=== PATIENT | male | born 1940 | race Caucasian/White ===

== ENCOUNTER 2016-09-18 22:14 | Inpatient (IN) | payer OTHER, MEDICAID ==
[2016-09-18] MEDS ORDERED: PROPOFOL/EMULSION 500 MG/50 ML BOTTLE IV ONE (22:23)
[2016-09-18] MEDS: DOBUTamine/DEXTROSE 250 ML IV SCH (22:30)
[2016-09-18] MEDS ORDERED: ROCURONIUM 100 MG/10 ML VIAL IVP ONE (22:30)
[2016-09-18] MEDS ORDERED: ONDANSETRON 4 MG/2 ML VIAL ONE (22:30)
[2016-09-18] MEDS ORDERED: ETOMIDATE 20 MG/10 ML VIAL IVP ONE (22:30)
--- NOTE | 2016-09-18 22:32 | CPEKG ---
Heart Rate: 147 RR Interval: 408 P-R Interval: 132 QRSD Interval: 64 QT Interval: 284 QTC Interval: 445 P [place]: 74 QRS [place]: 85 T Wave [place]: 73 EKG Severity - ABNORMAL ECG - EKG Impression: SINUS TACHYCARDIA WITH IRREGULAR RATE 122-185 EKG Impression: ABERRANT COMPLEX, POSSIBLY SUPRAVENTRICULAR EKG Impression: PROBABLE LEFT ATRIAL ABNORMALITY EKG Impression: BORDERLINE RIGHT AXIS DEVIATION EKG Impression: ST DEPRESSION, PROBABLY RATE RELATED Electronically Signed By: Daniel Stack 18-Sep-2016 23:19:21
[2016-09-18] MEDS ORDERED: EPINEPHrine 1 MG/10 ML SYR IVP ONE (22:35)
[2016-09-18] MEDS ORDERED: MIDAZOLAM 2 MG/2 ML VIAL ONE ×2 (22:37→22:38)
[2016-09-18] MEDS ORDERED: MIDAZOLAM 2 MG/2 ML VIAL IVP ONE (22:40)
[2016-09-18 22:43] LABS: % IMMATURE GRANULYOCYTES 0.2 % (0.0-1.1); ABSOLUTE IMMATURE GRANULOCYTES 0.03 10^3/uL (0.00-0.10); ADD DIFF? NO; ADD MORPH? NO; ADD SCAN? NO; ATYPICAL LYMPHOCYTE FLAG 0 (0-99); FRAGMENT RBC FLAG 0 (0-99); HEMATOCRIT 43.9 % (40.0-51.0); HEMOGLOBIN 15.4 g/dL (13.7-17.5); LEFT SHIFT FLG 80 (0-99); LIPEMIA HEMOLYSIS FLAG 90 (0-99); MEAN CELL HEMOGLOBIN 34.1 pg (27.9-34.1); MEAN CELL HEMOGLOBIN CONCENTR. 35.1 g/dL (32.4-36.7); MEAN CELL VOLUME 97.1 fL (81.5-99.8); MEAN PLATELET VOLUME 9.7 fL (8.7-11.7); PLATELET CLUMPS FLAG 10 (0-99); PLATELET COUNT 273 10^3/uL (150-400); RED BLOOD CELL COUNT 4.52 10^6/uL (4.40-6.38); RED CELL DISTRIBUTION WIDTH 12.1 % (11.5-15.2)
[2016-09-18 22:52] LABS: APTT 26.9 SEC (23.0-38.0); INR 1.04 (0.83-1.16); PROTIME(PATIENT) 13.5 SEC (12.0-15.0)
[2016-09-18] MEDS ORDERED: NOREPINEPHRINE BITARTRATE 4 MG in NS 500 ML IV ONE (22:53)
[2016-09-18 22:54] LABS: ANION GAP 15 mEq/L (8-16); CALCIUM 8.9 mg/dL (8.5-10.4); CARBON DIOXIDE 23 mEq/l (22-31); CHLORIDE 103 mEq/L (97-110); CREATININE 1.1 mg/dL (0.7-1.3); GLOMERULAR FILTRATION RATE > 60; GLUCOSE 188 mg/dL (70-100); POTASSIUM 4.9 mEq/L (3.5-5.2); SODIUM 141 mEq/L (134-144)
--- NOTE | 2016-09-18 22:56 | DX ---
Portable AP chest. September 18, 2016At 2240 History: Respiratory distress. Intubation. Comparison Study: June 29, 2016. Findings: Interstitial infiltrate present throughout the central and lower aspects of left lung is un changed. Similar but less prominent findings are present in the right lower lobe, stable. Heart size is normal. Endotracheal tube extends to the top of the aortic arch overlying the tracheal air shadow. Impression: Bilateral pulmonary infiltrates, left greater than right, stable. Intubation.
[2016-09-18 23:02] LABS: BASE EXCESS -6.2 mEq/L (-2.5-2.5); BICARBONATE 19 mEq/L (22-26); MEASURED OXYGEN SATURATION 86 % (92-95); PCO2 39 mmHg (34-38); PO2 59 mmHg (65-75); TCO2 20 mEq/L (23-27)
[2016-09-18 23:06] LABS: TROPONIN I 0.012 ng/mL (0-0.034)
[2016-09-18] MEDS ORDERED: ACETAMINOPHEN 650 MG SUPP PR ONE (23:10)
[2016-09-18] MEDS ORDERED: ACETAMINOPHEN 325 MG SUPP PR ONE (23:10)
--- NOTE | 2016-09-18 23:11 | CPEKG ---
Heart Rate: 140 RR Interval: 429 P-R Interval: 112 QRSD Interval: 64 QT Interval: 320 QTC Interval: 489 P [place]: 81 QRS [place]: 79 T Wave [place]: 70 EKG Severity - ABNORMAL ECG - EKG Impression: SINUS TACHYCARDIA EKG Impression: PROBABLE ANTEROSEPTAL INFARCT, AGE INDETERM EKG Impression: ST DEPRESSION, PROBABLY RATE RELATED EKG Impression: BORDERLINE PROLONGED QT INTERVAL EKG Impression: ST elevation in AVR and depression in V4 V5 and V6 Electronically Signed By: Daniel Stack 18-Sep-2016 23:19:15
[2016-09-18] MEDS ORDERED: ASPIRIN RECTAL 300 MG SUPP PR ONE (23:12)
--- NOTE | 2016-09-18 23:13 | EDPHY ---
H & P Time Seen by Provider: 09/18/16 22:14 HPI/ROS: CHIEF COMPLAINT: Respiratory distress HISTORY OF PRESENT ILLNESS: The patient is a 76-year-old schizophrenic man with a history of hypertension and coronary artery disease who comes to the emergency department via EMS for respiratory distress. He denies recent coughs or infections. In the ambulance he told him he is also having chest pain. They placed him on a BiPAP and were having trouble keeping his oxygen level above 80% . EKG showed sinus tachycardia. REVIEW OF SYSTEMS: Unable to obtain secondary to patient condition EXAM: GENERAL: Critical appearing, hypoxic, tachypneic Attempting to communicate with BiPAP in place. HEAD: Atraumatic, normocephalic. EYES: Pupils equal round and reactive to light, extraocular movements intact, sclera anicteric, conjunctiva are normal. ENT: TMs normal, nares patent, oropharynx clear without exudates. Moist mucous membranes. NECK: Normal range of motion, supple without lymphadenopathy or JVD. LUNGS: Bilateral rhonchi expiratory, no wheezing HEART: Tachycardic ABDOMEN: Obese, Soft, nontender, normoactive bowel sounds. No guarding, no rebound. No masses appreciated. BACK: No CVA tenderness, no spinal tenderness, step-offs or deformities EXTREMITIES: No edema. Normal range of motion, no pitting or edema. No clubbing or cyanosis. NEUROLOGICAL: Cranial nerves II through XII grossly intact. Normal speech, normal gait. 5/5 strength, normal movement in all extremities, normal sensation PSYCH: Normal mood, normal affect. SKIN: Warm, dry, normal turgor, no visible rashes or lesions. Source: Patient, EMS, skilled nursing records Exam Limitations: Clinical condition - Medical/Surgical History Hx Asthma: No Hx Chronic Respiratory Disease: Yes Hx Diabetes: No Hx Cardiac Disease: Yes Hx Renal Disease: No Hx Cirrhosis: No Hx Alcoholism: No Hx HIV/AIDS: No Hx Splenectomy or Spleen Trauma: No Other PMH: Schizophrenia, Anxiety, Depression, Hypertension, Hypothyroid, Chronic pain, Hypoxemia, Coronary artery disease, pneumonia - Family History Significant Family History: Asthma, Heart disease, Diabetes, Hypertension - Social History Smoking Status: Former smoker Alcohol Use: Sober Drug Use: None Constitutional: Initial Vital Signs Temperature (C) 37.1 C 09/18/16 22:14 Heart Rate 127 H 09/18/16 22:14 Respiratory Rate 50 H 09/18/16 22:14 Blood Pressure 93/71 L 09/18/16 22:14 O2 Sat (%) 81 L 09/18/16 22:14 O2 Delivery Mode Ventilator O2 (L/minute) 15 Allergies/Adverse Reactions: amoxicillin [Amoxicillin] Allergy (Verified 09/19/16 03:01) Penicillins Allergy (Verified 09/19/16 03:01) potassium [Potassium] Allergy (Verified 09/19/16 03:01) Home Medications: Medication Instructions Recorded Benztropine Mesylate 0.5 mg PO BID 01/12/16 Ergocalciferol [Vitamin D2 (*)] 50,000 i.unit PO Q30D 01/12/16 Levothyroxine [Synthroid 88 mcg 88 mcg PO DAILY06 01/12/16 (*)] Magnesium Hydroxide/Al Hydrox 30 ml PO Q4 PRN 01/12/16 [Mylanta Liquid] Polyethylene Glycol 3350 [Miralax 17 gm PO HS 01/12/16 17 gm (*)] Sennosides 2 each PO DAILY 01/12/16 morphINE SR [Ms Contin/Oramorph 15 15 mg PO BID 01/12/16 mg (*)] risperiDONE [Risperdal 1mg (*)] 2 mg PO BID 01/12/16 Benzocaine/Menthol 15/4 [Cepacol 1 ea PO PRN PRN #0 lozenge 01/14/16 Lozenge] Ipratropium/Albuterol [Duoneb (*)] 3 ml IH QID #0 deyvial 01/14/16 Metoprolol Tartrate [Lopressor 25 25 mg PO BID #0 tab 01/14/16 mg (*)] Nitroglycerin [Nitrostat 0.4 mg 0.4 mg SL PRN PRN #0 btl 01/14/16 (*)] guaiFENesin [Robitussin Oral 200 mg PO Q4 PRN #0 udcup 01/14/16 Liquid (*)] Aspirin [Aspirin 81mg (*)] 81 mg PO DAILY 06/29/16 Atorvastatin Calcium [Lipitor 20 20 mg PO HS 06/29/16 mg (*)] Bisacodyl [Dulcolax] 10 mg RC DAILY PRN 06/29/16 Cholecalciferol Vit D3 [Vitamin D3 2,000 units PO DAILY 06/29/16 2000 units tab (OTC)] Clopidogrel Bisulfate [Plavix (*)] 75 mg PO DAILY 06/29/16 Losartan Potassium [Cozaar 25 mg 25 mg PO DAILY 06/29/16 (*)] Magnesium Hydroxide [Milk of 30 ml PO DAILY PRN 06/29/16 Magnesia (*)] Ranitidine HCl 150 mg PO BID 06/29/16 Trolamine Salicylate/Aloe Vera 1 telly TP Q6 PRN 06/29/16 [Aspercreme 10% Cream] Acetaminophen [Tylenol 325mg (*)] 650 mg PO BID #0 tab 06/30/16 Hydrocodone/Acetaminophen [[place] 1 each PO Q6 PRN #0 tablet 06/30/16 5/325 (*)] Ibuprofen [Motrin (*)] 400 mg PO Q6HRS PRN #0 tab 06/30/16 Medical Decision Making - Diagnostics EKG Interpretation: An EKG obtained and was read and documented in trace view. Please see trace view for full reading and report. sinus tachycardia with PACs A EKG obtained and was read and documented in trace view. Please see trace view for full reading and report. Sinus tachycardia with some ST elevation in AVR and reciprocal depressions A repeat EKG obtained and was read and documented in trace view. Please see trace view for full reading and report. Imaging: X-ray: chest x-ray was obtained. I viewed the images myself on the PACS system. My interpretation of the images is: Pulmonary edema, ET tube in place. The radiologist interpretation is pending. X-ray: chest x-ray was obtained. I viewed the images myself on the PACS system. My interpretation of the images is: Pulmonary edema, ET tube and central line in place. The radiologist interpretation is pending. Procedures: Intubation: emergent intubation. While manually bagging the patient and maintaining the airway, The patient was sedated with 20 mg of Etomidate and paralyzed with 100 mg dark urine M. A 7.5 endotracheal tube was placed using the Glidescope. It was placed at 26 at the gum line. Placement was confirmed by direct visualization, good color change, and bilateral breath sounds with absent gastric sounds. Chest x-ray is pending. Saturations improved significantly and the procedure was successful. Procedure: Central line placement. Indication: Cardiogenic shock. Emergency consent. Patient is full code. A timeout was observed and patients identity and correct procedure location confirmed. Full maximal sterile barrier technique was uses including cap, gown, sterile gloves, large sheet, hand washing and chlorhexidine prep. The area anesthetized with 1% lidocaine. The left subclavian was punctured with a 19 gauge finder needle, then a triple- lumen was placed using standard Seldinger technique. There were no complications. Blood return low pressure, dark blood. Patient tolerated procedure well. CXR results: Line in good place. X-ray was interpreted by myself. The procedure was performed by myself. ED defibrillation: The patient was defibrillated for unstable SVT with 200 joules synchronized cardioversion. He was successfully converted to sinus tachycardia. Procedure: Arterial line placement Indication: Hypotension with pressors. Emergency consent. A timeout was observed and patients identity and correct procedure location confirmed. sterile barrier technique was uses including sterile gloves, large sheet, hand washing and chlorhexidine prep. The right femoral artery was punctured with a 19 gauge finder needle, then a arterial line was placed using standard [place]eldinger technique. There were no complications. Blood return low pressure, bright red blood. Patient tolerated procedure well. The procedure was performed by myself. ED Course/Re-evaluation: The patient was immediately taken into the trauma room and preparation for intubation. We tried to pre oxygenate maximally with BiPAP and nasal cannula. We got him up to 86%. We then intubated . Lung exam and x-ray were consistent with pulmonary edema. I suspect acute cardiogenic failure. He was 140/80 on arrival. But quickly lost blood pressure. After intubation he was 80 /60 and at one point 40/30. He had an episode of SVT and was defibrillated successfully. He was given dobutamine and several doses of epinephrine. CPR was not required. He maintained pulses. I spoke with Dr. Thomas over the phone and reviewed the 1st EKG. It revealed sinus tachycardia but no ST interval abnormalities. The 2nd EKG however revealed ST elevation in AVR and reciprocal changes in inferior leads. I reviewed this again with Dr. Thomas and he called the stores laborer team while I was placing the central line. Patient is currently 85 /72 on dobutamine and Levophed drips at maximum dose with a heart rate of 155 saturating 98% on room air with a a controlled rate of 20. 11:[address] Thomas is evaluating the patient. He thinks that he may have a primary arrhythmia because he continues to go in and out of SVT. He is given amiodarone bolus. The stores laborer had not been called get but was currently being paged when we decided to hold it until patient had emergent echocardiogram which is currently being done. 11:45 p.m. on echocardiogram the patient has good wall motion. laborer shellfish processing has been canceled. Will admit to the medical service. The patient is severely septic. Fluid boluses been initiated. I will order antibiotics. We have discussed the case with Dr. Gris Mendez who will admit. the patient is allergic to penicillins but not carbapenems. 11:55 p.m. I discussed the case with Dr. Thomas and Dr. Mendez. We agreed to initiate heparin to treat for potential PE but to defer CT scanning until tomorrow because he is currently in stable. We will give him the full fluid bolus for sepsis. The patient is doing much better. Heart rate 130, blood pressure 90/60. The dobutamine is often he is on Levophed of 5. Oxygen saturation in the mid 90s. 2:20 a.m. just prior to going upstairs the patient's blood pressure and saturations dropped again. We obtained another chest x-ray which reveals worsening infiltrates and ET tube still in place. No pneumothorax. We increased his Levophed and will start vasopressin. I placed a arterial line the confirms a blood pressure. It is improving slightly and is now 90/60. Critical Care Time: I spent a total of 75 minutes of critical care time in obtaining history, performing a physical exam, bedside monitoring of interventions, collecting and interpreting tests and discussion with consultants but not including time spent performing procedures [and exclusive of the PA's time]. - Data Points Laboratory Results: Laboratory Results 09/18/16 22:25 09/18/16 22:25 09/18/16 09/18/16 09/18/16 22:57 22:25 22:23 WBC 15.68 H 10^3/uL (3.80-9.50) RBC 4.52 10^6/uL (4.40-6.38) Hgb 15.4 g/dL (13.7-17.5) POC Hgb 16.0 gm/dL (14.5-17.3) Hct 43.9 % (40.0-51.0) POC Hct 47 % (42.8-50.6) MCV 97.1 fL (81.5-99.8) MCH 34.1 pg (27.9-34.1) MCHC 35.1 g/dL (32.4-36.7) RDW 12.1 % (11.5-15.2) Plt Count 273 10^3/uL (150-400) MPV 9.7 fL (8.7-11.7) Neut % (Auto) 91.8 H % (39.3-74.2) Lymph % (Auto) 6.5 L % (15.0-45.0) [place] % (Auto) 1.3 L % (4.5-13.0) Eos % (Auto) 0.1 L % (0.6-7.6) Baso % (Auto) 0.1 L % (0.3-1.7) Nucleat RBC Rel Count 0.0 % (0.0-0.2) Absolute Neuts (auto) 14.38 H 10^3/uL (1.70-6.50) Absolute Lymphs (auto) 1.02 10^3/uL (1.00-3.00) Absolute Monos (auto) 0.21 L 10^3/uL (0.30-0.80) Absolute Eos (auto) 0.02 L 10^3/uL (0.03-0.40) Absolute Basos (auto) 0.02 10^3/uL (0.02-0.10) Absolute Nucleated RBC 0.00 10^3/uL (0-0.01) Immature Gran % 0.2 % (0.0-1.1) Immature Gran # 0.03 10^3/uL (0.00-0.10) PT 13.5 SEC (12.0-15.0) INR 1.04 (0.83-1.16) APTT 26.9 SEC (23.0-38.0) D-Dimer 2.76 H ug/mLFEU (0.00-0.50) Puncture Site RIGHT BRACHIAL Patient Temperature 37.0 DEGREES pCO2 39 H mmHg (34-38) pO2 59 L mmHg (65-75) Total CO2 20 L mEq/L (23-27) ABG pH 7.31 L (7.35-7.45) ABG O2 Saturation 86 L % (92-95) ABG Base Excess -6.2 L mEq/L (-2.5-2.5) VBG Lactic Acid 3.3 H mmol/L (0.7-2.1) POC Sodium 141 mEq/L (134-144) Sodium 141 mEq/L (134-144) POC Potassium 4.6 mEq/L (3.3-5.0) Potassium 4.9 mEq/L (3.5-5.2) POC Chloride 102 mEq/L (96-108) Chloride 103 mEq/L (97-110) Carbon Dioxide 23 mEq/l (22-31) Bicarbonate 19 L mEq/L (22-26) Anion Gap 15 mEq/L (8-16) POC BUN 19 mg/dL (7-23) BUN 16 mg/dL (7-23) Creatinine 1.1 mg/dL (0.7-1.3) POC Creatinine 1.0 mg/dL (0.8-1.5) Estimated GFR > 60 Glucose 188 H mg/dL (70-100) POC Glucose 196 H mg/dL (70-100) Calcium 8.9 mg/dL (8.5-10.4) Total Bilirubin 0.9 mg/dL (0.1-1.4) Conjugated Bilirubin 0.8 H mg/dL (0.0-0.5) Unconjugated Bilirubin 0.1 mg/dL (0.0-1.1) AST 37 IU/L (17-59) ALT 44 IU/L (21-72) Alkaline Phosphatase 66 IU/L (38-126) Troponin I 0.012 ng/mL (0-0.034) NT-Pro-B Natriuret Pep 590 H pg/mL (0-450) Total Protein 7.5 g/dL (6.3-8.2) Albumin 4.2 g/dL (3.5-5.0) Lipase 125.0 IU/L (23-300) Medications Given: Discontinued Medications Acetaminophen (Tylenol Rectal) 325 mg TX EDNOW ONE Stop: 09/19/16 00:01 Last Admin: 09/19/16 00:00 Dose: 325 mg Acetaminophen (Tylenol Rectal) 650 mg TX EDNOW ONE Stop: 09/19/16 00:01 Last Admin: 09/19/16 00:00 Dose: 650 mg Amiodarone HCl (Amiodarone Hcl) 150 mg IV ONCE ONE Stop: 09/18/16 23:31 Last Admin: 09/18/16 23:30 Dose: 150 mg Amiodarone HCl (Amiodarone Hcl) 150 mg IV ONCE ONE Stop: 09/18/16 23:46 Last Admin: 09/18/16 23:50 Dose: 150 mg Aspirin (Aspirin Rectal) 300 mg TX EDNOW ONE Stop: 09/19/16 00:01 Last Admin: 09/19/16 00:00 Dose: 300 mg Epinephrine HCl (Epinephrine) 1 mg IVP ONCE ONE Stop: 09/18/16 22:36 Last Admin: 09/18/16 22:35 Dose: 1 mg Etomidate (Etomidate) 20 mg IVP EDNOW ONE Stop: 09/18/16 22:31 Last Admin: 09/18/16 22:30 Dose: 20 mg Heparin Sodium (Porcine) (Heparin Injection) 0 unit IVP EDNOW ONE PRN Reason: Protocol Stop: 09/18/16 23:54 Last Admin: 09/19/16 01:02 Dose: 5,800 units Norepinephrine 4 mg/ Sodium (Chloride) 504 mls @ 0 mls/hr IV EDNOW ONE; Titrate PRN Reason: Protocol Stop: 09/18/16 22:54 Last Admin: 09/18/16 23:00 Dose: 504 mls Fentanyl/Sodium Chloride (Fentanyl 10 Mcg/Ml (Premix)) 100 mls @ 0 mls/hr IV ONCE ONE; Per Protocol PRN Reason: Protocol Stop: 09/18/16 23:31 Last Admin: 09/18/16 23:30 Dose: 100 mls Amiodarone HCl (Amiodarone Hcl) 200 mls @ 33.333 mls/hr IV ONCE ONE PRN Reason: Protocol Stop: 09/19/16 05:29 Last Admin: 09/19/16 01:04 Dose: Not Given Cefepime HCl 2 gm/ Dextrose 100 mls @ 200 mls/hr IV EDNOW ONE PRN Reason: Protocol Stop: 09/19/16 00:13 Last Admin: 09/19/16 02:33 Dose: 100 mls Vancomycin/Sodium Chloride (Vancomycin 1 Gm (Premix)) 250 mls @ 250 mls/hr IV EDNOW ONE PRN Reason: Protocol Stop: 09/19/16 00:51 Last Admin: 09/19/16 01:12 Dose: 250 mls Heparin Sodium (Porcine) (Heparin 50 Units/Ml (Premix)) 500 mls @ 0 mls/hr IV EDNOW ONE; Per Protocol PRN Reason: Protocol Stop: 09/18/16 23:54 Last Admin: 09/19/16 01:03 Dose: 500 mls Amiodarone HCl (Amiodarone Hcl) 100 mls @ 600 mls/hr IV ONCE ONE Stop: 09/18/16 23:39 Last Admin: 09/19/16 03:54 Dose: Not Given Midazolam HCl (Versed) 8 mg IVP EDNOW ONE Stop: 09/18/16 22:41 Last Admin: 09/18/16 22:40 Dose: 8 mg Midazolam HCl (Versed) 2 mg IVP ONCE ONE Stop: 09/19/16 01:55 Last Admin: 09/19/16 01:55 Dose: 2 mg Rocuronium [place] (Zemuron) 100 mg IVP EDNOW ONE Stop: 09/18/16 22:31 Last Admin: 09/18/16 22:30 Dose: 100 mg Sodium Chloride (Ns *For Sepsis Order Set Only*) 0 ml IV ONCE ONE Stop: 09/18/16 23:45 Last Admin: 09/19/16 00:30 Dose: 3,000 ml Point of Care Test Results: 09/18/16 22:23 POC Sodium 141 POC Potassium 4.6 POC Chloride 102 POC BUN 19 POC Creatinine 1.0 POC Glucose 196 H Departure - Departure Disposition: Home, Routine, Self-Care Clinical Impression: Cardiogenic shock Condition: Critical
[2016-09-18] MEDS ORDERED: fentaNYL/NACL 100 ML IV ONE (23:30)
[2016-09-18] MEDS ORDERED: AMIODARONE TACHY-6HR INFSN (ORDER 2/3) IV ONE (23:30)
[2016-09-18] MEDS ORDERED: AMIODARONE HCL 100 ML IV ONE ×3 (23:30→23:45)
[2016-09-18] MEDS ORDERED: AMIODARONE HCL 150 MG/3 ML VIAL IV ONE ×2 (23:30→23:45)
[2016-09-18 23:31] LABS: COLOR YELLOW; LEUKOCYTE ESTERASE,URINE NEGATIVE (NEGATIVE); NITRITE,URINE NEGATIVE (NEGATIVE)
--- NOTE | 2016-09-18 23:31 | DX ---
Portable AP chest. September 18, 2016at 2307 History: Intubation. Respiratory distress. Line placement. Findings: From prior study, there is been placement of a left subclavian central venous catheter and nasogastric tube, without pneumothorax. Infiltrates in the lower lobes appear unchanged. Endotracheal tube is stable. Impression: Left subclavian central venous catheter without pneumothorax.
[2016-09-18 23:33] LABS: BACTERIA TRACE /hpf (NONE SEEN); MUCUS TRACE /lpf (NONE-1+)
--- NOTE | 2016-09-18 23:35 | CPEKG ---
Heart Rate: 135 RR Interval: 444 P-R Interval: 148 QRSD Interval: 68 QT Interval: 288 QTC Interval: 432 P [place]: 108 QRS [place]: 78 T Wave [place]: 20 EKG Severity - BORDERLINE ECG - EKG Impression: SINUS TACHYCARDIA EKG Impression: BORDERLINE T WAVE ABNORMALITIES Electronically Signed By: Daniel Stack 18-Sep-2016 23:58:36
[2016-09-18] MEDS ORDERED: NS 1,000 ML BAG *FOR SEPSIS ORDER SET ONLY IV ONE (23:44)
[2016-09-18] MEDS ORDERED: CEFEPIME HCL 2 GM in D5W 100 ML IV ONE (23:44)
[2016-09-18] MEDS ORDERED: VANCOMYCIN HCL/NORMAL SALINE 250 ML IV ONE (23:52)
[2016-09-18] MEDS ORDERED: HEPARIN/DEXTROSE 500 ML IV ONE (23:53)
[2016-09-18] MEDS ORDERED: HEPARIN 10,000 UNIT/10 ML MDV IVP ONE (23:53)
[2016-09-19] MEDS ORDERED: ACETAMINOPHEN 325 MG SUPP PR ONE
[2016-09-19] MEDS ORDERED: ASPIRIN RECTAL 300 MG SUPP PR ONE
[2016-09-19] MEDS ORDERED: ACETAMINOPHEN 650 MG SUPP PR ONE
[2016-09-19 00:04] LABS: ALBUMIN 4.2 g/dL (3.5-5.0); BILIRUBIN,TOTAL 0.9 mg/dL (0.1-1.4); BILIRUBIN-CONJUGATED 0.8 mg/dL (0.0-0.5); BILIRUBIN-UNCONJUGATED 0.1 mg/dL (0.0-1.1); TOTAL PROTEIN 7.5 g/dL (6.3-8.2)
[2016-09-19] MEDS ORDERED: ETOMIDATE 40 MG/20 ML INJ ONE (00:07)
[2016-09-19] MEDS ORDERED: ROCURONIUM 100 MG/10 ML VIAL ONE (00:07)
--- NOTE | 2016-09-19 00:31 | PDCARCONS ---
Cardiology Consult Reason for Consult: Emergency consultation requested by ER physician Dr. Daniel Stack Chief Complaint: Respiratory distress requiring urgent intubation Requesting Physician: Dr. Daniel Stack History of Present Illness: I was asked to perform a stat consult by Dr. Daniel Stack for this 76-year- old male who arrived to the emergency room in acute respiratory distress. Upon arrival he was hypertensive, was urgently intubated and subsequently became hypotensive. Per Dr. Stack report to me, patient had been transferred from [place] with symptoms of shortness of breath. There was a brief history taken prior to intubation and patient reported a history of pneumonia. Following intubation patient was hypotensive and required dobutamine and Lopressor. Subsequently the patient had supraventricular tachycardia in the 170s that required cardioversion because of hypotension, per Dr. Stack report , heart rate decreased to 150 beats per minute post cardioversion. Upon my arrival in the ED, the patient was on 20 mics per kg per minute of dobutamine, 20 mics per kg per minute of Levophed. History as above was obtained from Dr. Stack and the RN. I was told there was no chest pain prior to intubation, the patient's main complaint was shortness of breath. History Information - Allergies/Home Medication List Allergies/Adverse Reactions: amoxicillin [Amoxicillin] Allergy (Verified 04/21/12 14:14) Penicillins Allergy (Verified 04/21/12 14:14) potassium [Potassium] Allergy (Verified 04/21/12 14:14) Home Medications: Benztropine Mesylate 0.5 mg PO BID 01/12/16 [Last Taken 06/29/16] Ergocalciferol [Vitamin D2 (*)] 50,000 i.unit PO Q30D 01/12/16 [Last Taken 06/14] Levothyroxine [Synthroid 88 mcg (*)] 88 mcg PO DAILY06 01/12/16 [Last Taken 01/07] Magnesium Hydroxide/Al Hydrox [Mylanta Liquid] 30 ml PO Q4 PRN 01/12/16 [Last Taken 01/12/16 08:53] Polyethylene Glycol 3350 [Miralax 17 gm (*)] 17 gm PO HS 01/12/16 [Last Taken ] Sennosides 2 each PO DAILY 05/20/16 [Last Taken 06/29/16] morphINE SR [Ms Contin/Oramorph 15 mg (*)] 15 mg PO BID 01/12/16 [Last Taken 01/07] risperiDONE [Risperdal 1mg (*)] 2 mg PO BID 01/12/16 [Last Taken 06/29/16] Aspirin [Aspirin 81mg (*)] 81 mg PO DAILY 06/29/16 [Last Taken 06/29/16] Atorvastatin Calcium [Lipitor 20 mg (*)] 20 mg PO HS 06/29/16 [Last Taken ] Bisacodyl [Dulcolax] 10 mg RC DAILY PRN 06/29/16 [Last Taken Unknown] Cholecalciferol Vit D3 [Vitamin D3 2000 units tab (OTC)] 2,000 units PO DAILY [Last Taken 06/29/16] Clopidogrel Bisulfate [Plavix (*)] 75 mg PO DAILY 06/29/16 [Last Taken 06/29/16] Losartan Potassium [Cozaar 25 mg (*)] 25 mg PO DAILY 06/29/16 [Last Taken ] Magnesium Hydroxide [Milk of Magnesia (*)] 30 ml PO DAILY PRN 06/29/16 [Last Taken Unknown] Ranitidine HCl 150 mg PO BID 06/29/16 [Last Taken 06/29/16] Trolamine Salicylate/Aloe Vera [Aspercreme 10% Cream] 1 telly TP Q6 PRN 06/29/16 [ Last Taken Unknown] - Social History Smoking Status: Former smoker Alcohol Use: Sober Drug Use: None Cardiac History - Cardiac History Past Cardiac History: PCI Physical Exam FIO2 (%) 100 Cardiovascular: regular rate and rhythym, no murmur, rub, or gallop Gastrointestinal: normoactive bowel sounds, soft, non-tender abdomen (Patient intubated, sedated) Lab and Imaging 09/18/16 22:25 09/18/16 22:25 WBC 15.68 10^3/uL (3.80-9.50) H 09/18/16 22:25 RBC 4.52 10^6/uL (4.40-6.38) 09/18/16 22:25 Hgb 15.4 g/dL (13.7-17.5) 09/18/16 22:25 POC Hgb 16.0 gm/dL (14.5-17.3) 09/18/16 22: Hct 43.9 % (40.0-51.0) 09/18/16: POC Hct 47 % (42.8-50.6) 09/18/16 22: MCV 97.1 fL (81.5-99.8) 09/18/16: MCH 34.1 pg (27.9-34.1) 09/18/16: MCHC 35.1 g/dL (32.4-36.7) 09/18/16: RDW 12.1 % (11.5-15.2) 09/18/16: Plt Count 273 10^3/uL (150-400) 09/18/16: MPV 9.7 fL (8.7-11.7) 09/18/16: Neut % (Auto) 91.8 % (39.3-74.2) H 09/18/16: Lymph % (Auto) 6.5 % (15.0-45.0) L 09/18/16: Coles % (Auto) 1.3 % (4.5-13.0) L 09/18/16: Eos % (Auto) 0.1 % (0.6-7.6) L 09/18/16: Baso % (Auto) 0.1 % (0.3-1.7) L 09/18/16: Nucleat RBC Rel Count 0.0 % (0.0-0.2) 09/18/16: Absolute Neuts (auto) 14.38 10^3/uL (1.70-6.50) H 09/18/16: Absolute Lymphs (auto) 1.02 10^3/uL (1.00-3.00) 09/18/16: Absolute Monos (auto) 0.21 10^3/uL (0.30-0.80) L 09/18/16: Absolute Eos (auto) 0.02 10^3/uL (0.03-0.40) L 09/18/16: Absolute Basos (auto) 0.02 10^3/uL (0.02-0.10) 09/18/16 22:25 Absolute Nucleated RBC 0.00 10^3/uL (0-0.01) 09/18/16 22:25 Immature Gran % 0.2 % (0.0-1.1) 09/18/16 22:25 Immature Gran # 0.03 10^3/uL (0.00-0.10) 09/18/16 22:25 PT 13.5 SEC (12.0-15.0) 09/18/16 22:25 INR 1.04 (0.83-1.16) 09/18/16 22:25 APTT 26.9 SEC (23.0-38.0) 09/18/16 22:25 D-Dimer 2.76 ug/mLFEU (0.00-0.50) H 09/18/16 22:25 Puncture Site RIGHT BRACHIAL 09/18/16 22:57 Patient Temperature 37.0 DEGREES 09/18/16 22:57 pCO2 39 mmHg (34-38) H 09/18/16 22:57 pO2 59 mmHg (65-75) L 09/18/16 22:57 Total CO2 20 mEq/L (23-27) L 09/18/16 22:57 ABG pH 7.31 (7.35-7.45) L 09/18/16 22:57 ABG O2 Saturation 86 % (92-95) L 09/18/16 22:57 ABG Base Excess -6.2 mEq/L (-2.5-2.5) L 09/18/16 22:57 VBG Lactic Acid 3.6 mmol/L (0.7-2.1) H 09/18/16 23:48 POC Sodium 141 mEq/L (134-144) 09/18/16 22:23 Sodium 141 mEq/L (134-144) 09/18/16 22:25 POC Potassium 4.6 mEq/L (3.3-5.0) 09/18/16 22:23 Potassium 4.9 mEq/L (3.5-5.2) 09/18/16 22:25 POC Chloride 102 mEq/L (96-108) 09/18/16 22:23 Chloride 103 mEq/L (97-110) 09/18/16 22:25 Carbon Dioxide 23 mEq/l (22-31) 09/18/16 22:25 Bicarbonate 19 mEq/L (22-26) L 09/18/16 22:57 Anion Gap 15 mEq/L (8-16) 09/18/16 22:25 POC BUN 19 mg/dL (7-23) 09/18/16 22:23 BUN 16 mg/dL (7-23) 09/18/16 22:25 Creatinine 1.1 mg/dL (0.7-1.3) 09/18/16 22:25 POC Creatinine 1.0 mg/dL (0.8-1.5) 09/18/16 22:23 Estimated GFR > 60 09/18/16 22:25 Glucose 188 mg/dL (70-100) H 09/18/16 22:25 POC Glucose 196 mg/dL (70-100) H 09/18/16 22:23 Calcium 8.9 mg/dL (8.5-10.4) 09/18/16 22:25 Total Bilirubin 0.9 mg/dL (0.1-1.4) 09/18/16 22:25 Conjugated Bilirubin 0.8 mg/dL (0.0-0.5) H 09/18/16 22:25 Unconjugated Bilirubin 0.1 mg/dL (0.0-1.1) 09/18/16 22:25 AST 37 IU/L (17-59) 09/18/16 22:25 ALT 44 IU/L (21-72) 09/18/16 22:25 Alkaline Phosphatase 66 IU/L (38-126) 09/18/16 22:25 Troponin I 0.012 ng/mL (0-0.034) 09/18/16 22:25 NT-Pro-B Natriuret Pep 590 pg/mL (0-450) H 09/18/16 22:25 Total Protein 7.5 g/dL (6.3-8.2) 09/18/16 22:25 Albumin 4.2 g/dL (3.5-5.0) 09/18/16 22:25 Lipase 125.0 IU/L (23-300) 09/18/16 22:25 Urine Color YELLOW 09/18/16 23:16 Urine Appearance CLEAR 09/18/16 23:16 Urine pH 7.0 (5.0-7.5) 09/18/16 23:16 Ur Specific [place] 1.015 (1.002-1.030) 09/18/16 23:16 Urine Protein NEGATIVE (NEGATIVE) 09/18/16 23:16 Urine Ketones NEGATIVE (NEGATIVE) 09/18/16 23:16 Urine Blood NEGATIVE (NEGATIVE) 09/18/16 23:16 Urine Nitrate NEGATIVE (NEGATIVE) 09/18/16 23:16 Urine Bilirubin NEGATIVE (NEGATIVE) 09/18/16 23:16 Urine Urobilinogen NEGATIVE EU (0.2-1.0) 09/18/16 23:16 Ur Leukocyte Esterase NEGATIVE (NEGATIVE) 09/18/16 23:16 Urine RBC 1-3 /hpf (0-3) 09/18/16 23:16 Urine WBC 1-3 /hpf (0-3) 09/18/16 23:16 Ur Epithelial Cells TRACE /lpf (NONE-1+) 09/18/16 23:16 Urine Bacteria TRACE /hpf (NONE SEEN) H 09/18/16 23:16 Urine Mucus TRACE /lpf (NONE-1+) 09/18/16 23:16 Urine Glucose NEGATIVE (NEGATIVE) 09/18/16 23:16 Visualized and Interpreted Chest x-ray results: Yes Chest X-ray Interpretation: infiltrate Visualized and Interpreted EKG results: Yes EKG additional interpertation: 3 EKGs done, reviewed. These show sinus tachycardia and supraventricular tachycardia with heart rates between 130 to 170 beats per minute, inferolateral ST depression. No ST elevation is seen. Telemetry: Sinus tachycardia with salvos of supraventricular tachycardia causingHypotension A/P Assessment: 1. Acute respiratory distress 2. Fever 3. Hypertension 4. Prior history of coronary artery disease Plan: 76-year-old male with prior history of coronary artery disease, PCI to LAD in 2016, known chronic total occlusion of the right coronary artery. He presented with acute respiratory distress to the emergency department. He is currently intubated. Chest x-ray shows bilateral pulmonary infiltrates. Echocardiogram was done at the time of my examination, this shows hyperdynamic left ventricle, trace pericardial effusion and mildly dilated right ventricle. EKG does not suggest an acute myocardial infarction. D-dimer is elevated. Upon review of previous clinic notes from February of 2016 from [facility], he has chronic hypoxia related to COPD and refuses to use oxygen at home. Differential diagnosis of his symptoms includes pulmonary embolism (D-dimer is elevated), septic shock related to pneumonia or acute coronary syndrome. 1st troponin level is negative, EKG does not suggest acute myocardial infarction, echocardiogram shows no significant wall motion abnormalities. Recommendations are to treat him with intravenous heparin for presumed PE as he is too unstable to currently go to the CT scanner in my opinion. There is no indication for urgent coronary angiography at this time. Core temperature was 39 degrees C and patient is being treated for septic shock with intravenous fluids. He is requiring Levophed 20 mics per kg per minute to maintain his mean arterial pressure in the 60s. This can be titrated downwards as necessary. He had several episodes of supraventricular tachycardia while I was at the bedside. These subsided with discontinuing his dobutamine and giving him IV amiodarone boluses 150 mg x2. I have discussed his case with Dr. Daniel Stack and Dr. Estelita Mendez who will manage him in the ICU. 1.5 hour was spent at the patient's bedside
[2016-09-19] MEDS ORDERED: ONDANSETRON 4 MG/2 ML VIAL IVP PRN (00:50)
[2016-09-19] MEDS ORDERED: ONDANSETRON DISINTEGRATING 4 MG TAB PO PRN (00:50)
[2016-09-19] MEDS ORDERED: HEPARIN 10,000 UNIT/10 ML MDV IVP PRN (00:50)
[2016-09-19] MEDS ORDERED: AMIODARONE HCL 150 MG/3 ML VIAL ONE (01:00)
[2016-09-19] MEDS ORDERED: EPINEPHrine 1 MG/10 ML SYR IVP ONE ×2 (01:00→22:35)
[2016-09-19] MEDS ORDERED: HYDROCORTISONE 100 MG/2 ML VIAL IVP SCH ×2 (01:00→05:30)
[2016-09-19] MEDS ORDERED: PHENYLEPHRINE HCL 50 MG in D5W 250 ML IV SCH (01:00)
[2016-09-19] MEDS ORDERED: NOREPINEPHRINE BITARTRATE 4 MG in D5W 500 ML IV SCH (01:00)
[2016-09-19] MEDS ORDERED: INSULIN REGULAR HUMAN 100 UNIT/ML SC SCH (01:30)
[2016-09-19] MEDS ORDERED: MIDAZOLAM 2 MG/2 ML VIAL ONE ×3 (01:53→11:36)
[2016-09-19] MEDS ORDERED: MIDAZOLAM 2 MG/2 ML VIAL IVP ONE ×2 (01:54→13:30)
--- NOTE | 2016-09-19 02:40 | GHP ---
[f rep st] HISTORY AND PHYSICAL DATE OF ADMISSION: 09/18/2016 CHIEF COMPLAINT: Shortness of breath. HISTORY OF PRESENT ILLNESS: The patient is a 76-year-old male who resides at [facility] who was brought to the emergency department via EMS after he complained of sudden shortness of breath. En route, he reported chest pain in the ambulance. Due to respiratory distress, he was started on BiPAP. Upon arrival to the emergency department, he remained hypoxemic with O2 sats in the 80s, and he was emergently intubated. Clinical exam and chest x-ray were consistent with pulmonary edema and concern arose for an acute coronary syndrome. His initial troponin was negative. His initial EKG showed sinus tachycardia with some ST depression, which may have been rate related. After intubation, he dropped his blood pressure to 80/60 and as low as a systolic pressure in the 40s. Urgent Cardiology consult was obtained and a bedside echo was performed, which showed a normal ejection fraction. No wall motion abnormality, though there was some initial report of possible right ventricular strain. He was started on Levophed followed by dobutamine and then developed an episode of SVT for which he was cardioverted successfully. He then went in and out of SVT and required 2 boluses of IV amiodarone. This was thought to be possibly subsequent dobutamine, which was weaned off, and his SVT seems to have resolved. He is continued on Levophed and also received 3 L of IV saline bolus for possible septic shock. I discussed the case with our on-call print production associate who does not believe he has a cardiogenic source of his symptoms and furthermore, did not believe there was an urgent indication for coronary angiography. I reviewed the EKG with Cardiology who does not feel this is suggestive of an acute ID. His D-dimer is elevated, though he is not clinically stable for CT scanning. Thus, he received a heparin bolus followed by a heparin drip in the emergency department. He is admitted to the ICU for further management. PAST MEDICAL HISTORY: 1. Coronary artery disease with 2 drug-eluting stents in the LAD placed December. 2. Schizophrenia. 3. Bipolar disorder. 4. Depression and anxiety. 5. Hypothyroidism. 6. Hypertension. 7. Chronic pain. 8. Chronic continuous opioid dependence. PAST SURGICAL HISTORY: He has had a prior laparotomy for an ulcer. MEDICATIONS: Please see [facility] for complete updated outpatient medication list. ALLERGIES: Penicillin and potassium. SOCIAL HISTORY: Patient lives at [facility]. He is a former smoker, quit 10 years ago. Per chart review, there is no history of alcohol or drug use. FAMILY HISTORY: Both of his parents are . REVIEW OF SYSTEMS: Unobtainable as the patient is intubated and sedated at the time of my evaluation. OBJECTIVE: VITAL SIGNS: Currently, there are no vital signs charted in [facility]. He reportedly had a core temperature of 39 degree Celsius upon arrival. Blood pressure on arrival was 140/80, though after intubation, he became hypotensive, dropping his systolic pressure to 80 and then as low as 40. His heart rate has ranged from the 120s to 150s. He is saturating 98% on the ventilator. GENERAL: The patient is sedated with just 25 mcg of fentanyl. He is responsive to pain and minimally responsive to verbal stimuli. HEENT: Head is atraumatic, normocephalic. Pupils are pinpoint and reactive bilaterally. Oropharynx is clear. Breathing tube is in place. NECK: Supple. There is no JVD. HEART: Rapid rate without murmur. LUNGS: Relatively clear to auscultation with faint basilar crackles on the posterolateral aspect of the left lung. ABDOMEN: Soft, obese, nondistended, nontender. Normoactive bowel sounds are present. EXTREMITIES: Without cyanosis, clubbing, or edema. Warm, well perfused. NEUROLOGIC: Patient sedated as above. LABORATORY DATA: CBC reveals white blood cell count of 15.7 with 92% neutrophils. D-dimer is elevated at 2.7. INR is 1.04. Initial ABG shows a pH of 7.31, pCO2 of 39, pO2 of 59. Initial lactic acid is 3.6, repeat lactic acid after IV fluids is 3.1. Complete metabolic panel reveals normal electrolytes. Serum bicarb is slightly low at 19. Glucose 188. NT proBNP is 590. Initial troponin is negative. LFTs are normal. Lipase is normal. Urinalysis is unremarkable. RADIOLOGY: Chest x-ray in the emergency department reveals bilateral pulmonary infiltrates, left greater than right. Unclear if this is infectious versus edema. Repeat chest x-ray post intubation and post NG tube placement reveals a stable endotracheal tube with a left subclavian central venous catheter without a pneumothorax. Initial EKG upon arrival to the emergency department reveals sinus tachycardia with a heart rate of 147 and some possible rate-related ST-segment depression. Repeat EKG again reveals sinus tachycardia with a heart rate of [address] depression in the inferior and lateral leads, which is slightly improved on his final EKG performed at 2330. ASSESSMENT AND PLAN: The patient is a 76-year-old male who presented to the emergency department via EMS from his assisted living facility after developing acute shortness of breath with chest pain reported en route. 1. Acute hypoxemic respiratory failure. Patient required emergent intubation in ED. Possible etiologies include septic shock secondary to pneumonia in the setting of bilateral infiltrates versus pulmonary embolism versus cardiogenic pulmonary edema due to acute coronary syndrome. He received 30 cc/kg fluid bolus in the emergency department followed by broad-spectrum antibiotics. He presented febrile with tachycardia, leukocytosis, and elevated lactate of 3.6. His repeat lactate is trending down. Will continue to trend his lactate to less than 2.2. I am going to continue him on cefepime and vancomycin for possible pulmonary source of sepsis. A central line is placed. Will monitor CVP and mixed venous O2 saturation. After discussion with Cardiology, it seems less likely this is an acute coronary syndrome. However, we will trend his troponin. His EKG at this time appears nonischemic. I am concerned for a pulmonary embolism as an underlying etiology of his presentation. His D-dimer is elevated. However, he is currently not stable to go to the CT scanner. Thus , he has received a heparin bolus followed by heparin drip, and will continue this overnight. If his clinical status is improved in the morning, he will need a CT chest angiogram for further evaluation for PE. Will obtain b/l LE us for now. 2. Septic shock. Suspect pulmonary source. Treatment as above. Currently on 2 pressors, will initiate stress dose steroids with Hydrocortisone. Based on his mixed venous O2 of 66, would like to add back Dobutamine, will try low dose and hopefully avoid SVT. 3. Supraventricular tachycardia. This may have been hastened by high dose dobutamine. He is status post 2 IV amiodarone boluses and he also required cardioversion x1. He has since been weaned off dobutamine and his SVT seems to have resolved. Should this recur, will repeat an amiodarone bolus and consider amiodarone drip. Avoid Adenosine given hypotension. 4. Coronary artery disease with history of left anterior descending stent placement in december of 2015. As above, we are less suspicious for an acute coronary syndrome. However, he does need to continue his antiplatelet therapy given his stent has been placed within the past year. An NG tube is in place, and I will continue his aspirin and Plavix through his tube. Cardiology has been consulted, and appreciate their assistance. 5. Metabolic acidosis. This is likely a lactic acidosis in the setting of presumed septic shock and decreased tissue perfusion. pH down to 7.2 from 7.3. He is receiving his 4th L NS. Will add bicarb drip and follow closely. 6. Hypertension. Antihypertensives are held at this time given his dramatic hypotension post intubation. These can be resumed as clinically indicated when his sepsis picture improves. 7. Schizophrenia. We can resume his outpatient medications once his medication reconciliation is performed as long as these are compatible with administration through the NG tube. 8. Chronic pain with chronic continuous opioid dependence. At this time, he is on a fentanyl drip, which should keep him out of withdrawal, and once his medical record is completed, we can continue his outpatient pain medications. 9. Hypothyroidism. Will continue his levothyroxine after completion of his medical record. 10. Hyperglycemia. I do not see that he has a history of diabetes. I will place him on a q.6 hour dose adjusted regular insulin as needed for glycemic control while in the ICU. 11. Deep venous thrombosis prophylaxis. Patient is currently anticoagulated with a heparin drip. 12. Code status. I reviewed his MOLST form. He is full code. 13. Disposition: Patient is admitted to inpatient status, is likely to require greater than 48 hours hospitalization for ongoing management of his acute hypoxemic respiratory failure and presumed septic shock. /[id number]/MODL MTDD
[2016-09-19 03:32] LABS: MIXED VENOUS O2 SATURATION 46 % (65-75)
[2016-09-19 03:46] LABS: BASE EXCESS -10.2 mEq/L (-2.5-2.5); BICARBONATE 17 mEq/L (22-26); MEASURED OXYGEN SATURATION 92 % (92-95); PCO2 46 mmHg (34-38); PO2 82 mmHg (65-75); TCO2 18 mEq/L (23-27)
[2016-09-19 03:48] LABS: END TIDAL CO2 29; O2 CONCENTRATIION 100 % (0-100); P/F RATIO 82 RATIO; PATIENT RATE 32; SIMV YES
[2016-09-19 04:01] LABS: MIXED VENOUS O2 SATURATION 66 % (65-75)
[2016-09-19] MEDS: CEFEPIME HCL 2 GM in D5W 100 ML IV SCH ×4 (04:24→21:54)
[2016-09-19 04:53] LABS: MIXED VENOUS O2 SATURATION 54 % (65-75)
[2016-09-19] MEDS: SODIUM BICARBONATE 150 MEQ in D5W 1,000 ML IV SCH (05:10)
[2016-09-19] MEDS: DOBUTamine/DEXTROSE 250 ML IV SCH (05:16)
[2016-09-19 05:19] LABS: ADD MORPH? NO; ADD SCAN? YES; ATYPICAL LYMPHOCYTE FLAG 0 (0-99); FRAGMENT RBC FLAG 0 (0-99); HEMATOCRIT 38.3 % (40.0-51.0); HEMOGLOBIN 12.7 g/dL (13.7-17.5); LEFT SHIFT FLG 300 (0-99); LIPEMIA HEMOLYSIS FLAG 80 (0-99); MEAN CELL HEMOGLOBIN 33.6 pg (27.9-34.1); MEAN CELL HEMOGLOBIN CONCENTR. 33.2 g/dL (32.4-36.7); MEAN CELL VOLUME 101.3 fL (81.5-99.8); MEAN PLATELET VOLUME 9.9 fL (8.7-11.7); PLATELET CLUMPS FLAG 10 (0-99); PLATELET COUNT 214 10^3/uL (150-400); RED BLOOD CELL COUNT 3.78 10^6/uL (4.40-6.38); RED CELL DISTRIBUTION WIDTH 12.3 % (11.5-15.2)
[2016-09-19 05:29] LABS: TROPONIN I 0.188 ng/mL (0-0.034)
[2016-09-19] MEDS ORDERED: DOBUTamine 500 MG in D5W 250 ML IV SCH (05:30)
[2016-09-19 05:34] LABS: ADD DIFF? YES; SCAN POSITIVE
[2016-09-19 05:38] LABS: ALANINE AMINOTRANSFERASE 38 IU/L (21-72); ALBUMIN 2.5 g/dL (3.5-5.0); ALKALINE PHOSPHATASE 37 IU/L (38-126); ANION GAP 15 mEq/L (8-16); ASPARTATE AMINOTRANSFERASE 32 IU/L (17-59); BILIRUBIN,TOTAL 0.7 mg/dL (0.1-1.4); CARBON DIOXIDE 17 mEq/l (22-31); CHLORIDE 109 mEq/L (97-110); CREATININE 1.2 mg/dL (0.7-1.3); GLOMERULAR FILTRATION RATE 59; GLUCOSE 218 mg/dL (70-100); POTASSIUM 4.7 mEq/L (3.5-5.2); SODIUM 141 mEq/L (134-144); TOTAL PROTEIN 5.3 g/dL (6.3-8.2)
[2016-09-19 05:39] LABS: PLATELET ESTIMATE ADEQUATE (ADEQ)
[2016-09-19 05:40] LABS: LARGE PLATELETS PRESENT
[2016-09-19] MEDS: NS 1,000 ML IV SCH ×4 (05:54→21:33)
[2016-09-19 07:02] LABS: MIXED VENOUS O2 SATURATION 56 % (65-75)
[2016-09-19 07:38] LABS: BICARBONATE 17 mEq/L (22-26); MEASURED OXYGEN SATURATION 93 % (92-95); PCO2 42 mmHg (34-38); PO2 85 mmHg (65-75); TCO2 18 mEq/L (23-27)
[2016-09-19 07:39] LABS: END TIDAL CO2 20; O2 CONCENTRATIION 90 % (0-100); P/F RATIO 94 RATIO; PATIENT RATE 24; SIMV YES
--- NOTE | 2016-09-19 07:55 | DX ---
Portable Chest 6:25 AM History: Respiratory distress, check tube placements , ICU patient Comparison: 2:04 AM Findings: ET tube left subclavian catheter and NG tube remain in place in good position. Left lower l obe consolidation remains, slightly improved laterally. Mild blunting of the left lateral costophren ic gutter remains consistent with a small pleural effusion. Stable infiltrate right lower lung. Impression: Good tube placement. Slight improvement since earlier.
--- NOTE | 2016-09-19 07:57 | ECHO ---
[id number] + + [address] : : [facility] [address] : : [phone] + Adult Echocardiographic Report + ----+ :Name: TIFFANY VAUGHN Kemikaley Date: 09/18/2016 07:27 AM : : Hospital Admission Number: [id number] Location : ER: :: 1940 Gender: Male : :Age: 76 yrs Race: WH : :Reason For Study: Eval LV wall motion : + ----+ Doppler Measurements & Calculations MV E max riddhi: 60.7 cm/sec Ao V2 max: 152.0 cm/sec MV A max riddhi: 95.8 cm/sec Ao max P.2 mmHg MV E/A: 0.63 Left Ventricle The left ventricular cavity is small. There is mild concentric left ventricular hypertrophy. The left ventricle is hyperdynamic. There is Doppler evidence for diastolic dysfunction. Right Ventricle The right ventricle is mild to moderately dilated. Atria The left atrial size is normal. The right atrium is mildly dilated. Mitral Valve The mitral valve is normal. Tricuspid Valve Normal tricuspid valve. Aortic Valve The aortic valve opens well. Pulmonic Valve The pulmonic valve is not well visualized. Great Vessels The aortic root is normal size. Pericardium/Pleural Small pericardial effusion with echogenicity within. Conclusion A complete two-dimensional transthoracic echocardiogram was performed (2D, M-mode, Doppler and color flow Doppler). This was a stat study in the ER performed at 11:46 PM. The left ventricle is hyperdynamic. There is Doppler evidence for diastolic dysfunction. The left ventricular cavity is small. There is mild concentric left ventricular hypertrophy. The right ventricle is mild to moderately dilated. The right atrium is mildly dilated. Small pericardial effusion with echogenicity within. Final Reading Physician: Jose Thomas MD electronically signed on 09/19/2016 07:55 AM Ordering Physician: Jose Thomas MD Performed By: Funmilayo Prasad RDCS
--- NOTE | 2016-09-19 08:06 | DX ---
Portable Chest 2:05 AM History: Check tube placement, intubated patient, respiratory distress Comparison: September 18, 23:07 and :40 Findings: ET tube and right subclavian catheter and NG tube remain in place. There is little if any c hange in dense left lower lung zone consolidation since :. Difficult to exclude a small left pleu ral effusion. Little change in right lower lung infiltrate, which has developed since :. Impression: Worsening pneumonia.. Good tube positions.
[2016-09-19 08:31] LABS: BASE EXCESS -9.2 mEq/L (-2.5-2.5); BICARBONATE 16 mEq/L (22-26); IONIZED CALCIUM 1.03 MMOL/L (1.12-1.30); MEASURED OXYGEN SATURATION 85 % (92-95); O2 CONCENTRATIION 100 % (0-100); P/F RATIO 61 RATIO; PCO2 38 mmHg (34-38); PO2 61 mmHg (65-75); TCO2 17 mEq/L (23-27)
--- NOTE | 2016-09-19 08:31 | CPEKG ---
Heart Rate: 171 RR Interval: 351 P-R Interval: 148 QRSD Interval: 76 QT Interval: 276 QTC Interval: 466 P Blakely: 76 QRS Blakely: 91 T Wave Blakely: 71 EKG Severity - ABNORMAL ECG - EKG Impression: SUPRAVENTRICULAR TACHYCARDIA EKG Impression: PAIRED VENTRICULAR PREMATURE COMPLEXES EKG Impression: ABERRANT COMPLEX, POSSIBLY SUPRAVENTRICULAR EKG Impression: RIGHT AXIS DEVIATION EKG Impression: MINIMAL ST DEPRESSION, INFERIOR LEADS EKG Impression: BORDERLINE T ABNORMALITIES, ANT-LAT LEADS Electronically Signed By: Torres Tyson 20-Sep-2016 19:29:47
[2016-09-19 08:32] LABS: END TIDAL CO2 14; PATIENT RATE 30; SIMV YES
[2016-09-19] MEDS: INSULIN REGULAR HUMAN 100 UNIT in NS 100 ML IV SCH ×3 (09:00→21:54)
[2016-09-19] MEDS: NOREPINEPHRINE BITARTRATE 16 MG in NS 250 ML IV SCH ×3 (09:08→21:27)
[2016-09-19 09:33] LABS: BASE EXCESS -11.3 mEq/L (-2.5-2.5); BICARBONATE 14 mEq/L (22-26); MEASURED OXYGEN SATURATION 93 % (92-95); PCO2 35 mmHg (34-38); PO2 79 mmHg (65-75); TCO2 15 mEq/L (23-27)
[2016-09-19 09:34] LABS: ASSIST CONTROL YES; O2 CONCENTRATIION 100 % (0-100); P/F RATIO 79 RATIO
[2016-09-19 09:35] LABS: TOTAL RATE 30
[2016-09-19] MEDS: ASPIRIN 81 MG CHEWABLE TAB TUBE SCH (10:08)
[2016-09-19] MEDS: CLOPIDOGREL BISULFATE 75 MG TAB TUBE SCH (10:08)
[2016-09-19 10:41] LABS: MIXED VENOUS O2 SATURATION 59 % (65-75)
--- NOTE | 2016-09-19 11:30 | US ---
Bilateral Lower Extremity Ultrasound and Venous Duplex Doppler Study History: Possible pulmonary embolus, unable to undergo CT, evaluate for DVT. Comparison: None available. Technique: High frequency transducer was used for imaging and Doppler study of the veins of the righ t and left lower extremities. Pulsed Doppler and color Doppler were utilized, along with various ma neuvers to assess flow in the veins. Findings: Right: The deep veins of the right lower extremity are normally compressible between the groin and th e upper calf. They have normal Doppler waveforms within them. No venous thrombosis is identified. Left: The deep veins of the left lower extremity are normally compressible between the groin and the upper calf. They have normal Doppler waveforms within them. No venous thrombus is identified. Impression: No evidence of deep vein thrombosis in the lower extremities. Findings discussed with Daniel Stack 09/19/2016 at 139 hours. The preliminary and final reports were concordant.
[2016-09-19] MEDS ORDERED: LIDOCAINE 1% 30 ML SDV MISC ONE (11:33)
[2016-09-19] MEDS ORDERED: LIDOCAINE 2% JELLY 5 ML TUBE TP ONE (11:33)
[2016-09-19] MEDS ORDERED: LIDOCAINE 2% JELLY 5 ML TUBE ONE (11:34)
[2016-09-19] MEDS: EPINEPHrine 2 MG in D5W 500 ML IV SCH ×2 (12:33→13:35)
[2016-09-19] MEDS: fentaNYL/NACL 100 ML IV SCH (13:01)
[2016-09-19] MEDS: HEPARIN/DEXTROSE 500 ML IV SCH (13:01)
[2016-09-19] MEDS: VASOPRESSIN/DEXTROSE 250 ML IV SCH ×2 (13:06→21:27)
--- NOTE | 2016-09-19 13:26 | GPN ---
[f rep st] PROCEDURE NOTE DATE OF PROCEDURE: 09/19/2016 PROCEDURE: Emergent bronchoscopy. INDICATION: Obstruction in his airway based on ventilator parameters. CONSENT: Waived due to the urgent nature of the procedure as was a procedural time out. DESCRIPTION OF PROCEDURE: The patient received 1 mg of IV Versed, 25 mcg of IV fentanyl. The bronch oscope was passed through the existing endotracheal tube with some difficulty due to a kink. There w ere little to no secretions in the endotracheal tube as well as in the trachea itself. In the left l ower lobe there were white secretions that were easily suctioned out with little effort. There were no endobronchial lesions. The mucosa appeared to be normal. There was no bleeding or blood clots wi thin the airways themselves. The patient tolerated the procedure well. /[id number]/MODL
--- NOTE | 2016-09-19 13:53 | GCON ---
[f rep st] CONSULTATION CRITICAL CARE CONSULT DATE OF CONSULTATION: 09/19/2016 HISTORY OF PRESENT ILLNESS: The patient is a 76-year-old male with a history of coronary artery dise ase and schizophrenia living in an assisted living who reported sudden onset of shortness of breath. His EKG appeared to be equivocal at first glance in the emergency department, but he was having diff iculty maintaining oxygen saturations and required intubation. Shortly after, he developed hypotensi on and was started on Levophed and dobutamine, but this resulted in a supraventricular tachycardia wi th a heart rate of 170. He was cardioverted, but his rate only came down to 150. A cardiology consu lt was obtained. His dobutamine dose was reduced and he was started on amiodarone drip and brought t o the intensive care unit. During this period of time, a chest x-ray was performed that showed some bilateral infiltrates, left greater than right. He had a white count of 15.6 and was febrile at the time. It is unclear if he had pneumonia symptoms prior. In any case, he was treated for pneumonia a nd septic shock and brought to the intensive care unit. On my arrival this morning, he was still on dobutamine at 2.5 mcg per minute and his heart rate was about 130. His Levophed dose was quite high and he was on a ventilator. Otherwise, he appeared to be relatively stable. REVIEW OF SYMPTOMS: Based on the chart, this appeared to be negative. PAST MEDICAL HISTORY: Coronary artery disease with 2 drug-eluting stents in December of 2015, schizophren ia, bipolar disorder, depression, anxiety, hypothyroidism, hypertension, chronic pain and chronic opi oid dependence. PAST SURGICAL HISTORY: Perforated ulcer with a laparotomy for repair. OUTPATIENT MEDICATIONS: Benztropine, vitamin D2 and D3, Synthroid, morphine sulphate Contin, aspirin , Lipitor, Plavix, ranitidine and Cozaar. SOCIAL HISTORY: He is a nonsmoker. No alcohol or IV drug use. FAMILY HISTORY: Noncontributory. CURRENT MEDICATIONS: Aspirin, cefepime, Plavix, epinephrine drip, Levophed drip, fentanyl, heparin d rip, hydrocortisone 100 mg q.12, insulin drip, Levophed, Zofran, propofol, bicarb drip at 50 mL per h our, vasopressin. PHYSICAL EXAMINATION: VITAL SIGNS: T-max looks to be about 38.1, blood pressure 98/51 with a MAP of 66, heart rate of 113, respirations 27, oxygen saturation 99%. He is on assist control at a rate of 30. Tidal volume 450. FiO2 100% and PEEP of 5. GENERAL: He was easily arousable, but otherwise a ppeared to be fairly comfortable, breathing with the ventilator. HEENT: His pupils were equally rou nd and reactive to light. Nonicteric. Noninjected. From what I could tell his mucous membranes wer e moist without erythema or exudate. NECK: Supple without adenopathy or jugular vein distention. L UNGS: Breath sounds were diminished bilaterally, but I did not hear any rales or rhonchi and they we re equal and there was no rub. HEART: Regular rate and rhythm without murmurs, rubs or gallops. AB DOMEN: Soft and nontender, but mildly obese without hepatosplenomegaly and hypoactive bowel tones. EXTREMITIES: No clubbing, cyanosis or edema. SKIN: Warm and dry without evidence of rash. OBJECTIVE DATA: Chest x-ray as described above. His white count was 15.7 down to 4.8 today. Hematocrit now 38. Darling telets of 214. His last blood gas was at 0930 with a pH of 7.25, pCO2 of 35, pO2 of 79, bicarb 15 an d a sat of 93. His basic metabolic panel was notable for a bicarb of 14, but his creatinine is 1.2. Glucose of 218. Ionized calcium 1.03. LFTs were fairly benign. BNP was 590 on arrival. Troponin was 0.012 and increased to 0.21 on repeat testing. Lipase was normal. UA was unremarkable. Blood c ultures are pending at this time. ASSESSMENT AND PLAN: 1. Septic shock. This is likely due to underlying pneumonia. I think a procalcitonin would be usef ul in this situation, but is not available in a timely manner now. We will have to continue treating him for pneumonia with cefepime and vancomycin. For now follow up on his blood cultures. Dictated separately is a bronchoscopy that was performed because of a high peak airway pressure and relatively low plateau pressure. There was some mucus in his airways, but not much and there was certainly no clots or other obstructing lesions. There was a kink in the 7.5 endotracheal tube. We will continue to follow this for now with sepsis protocol. We will target a MAP of 65 and we will transition him off dobutamine since it is already causing a problem, using epinephrine in support of Levophed and va sopressin. A NICOM was performed that showed no significant responsivity in the stroke volume index. We will follow serial lactates as well. 2. Hypotension. This is described above. Most likely septic shock. Pulmonary embolism is in the d ifferential diagnosis for him, but my suspicion is only moderate and I think he remains too unstable to go for CT scan right now and because it is only moderate suspicion, I think it is hard to justify giving him systemic thrombolytic therapy, so we will continue his heparin drip for now and support hi s blood pressure as described above. Not mentioned was an echocardiogram that shows a hyperdynamic l eft ventricle. The ejection fraction was not reported. There is mild to moderate dilation of the ri ght ventricle which could be consistent with pulmonary embolism as well. Also not mentioned above is bilateral lower extremity that was negative for deep venous thrombosis. 3. Supraventricular tachycardia. He is now in sinus rhythm and did well with the transition from do butamine to epinephrine. I think that was most likely the cause. 4. Elevated troponins. This may be due to rate related ischemia as well as his cardioversion. I do not believe there is an acute coronary artery syndrome going on right at this moment. We will bea nue to follow the troponins to their peak at least. TIME SPENT: A total of approximately 65 minutes of critical care time was required in the evaluation of this patient. /[id number]/MODL
--- NOTE | 2016-09-19 14:29 | HOSPPROG ---
Hospitalist Progress Note Assessment/Plan: # Acute septic shock- presumed from pulmonary source ( tachycardia, leukocytosis, and hypotension at presentation) remains hypotensive requiring IV fluid and pressor support this morning- WBC and tachycardia improved this afternoon lactic acid remains 3.9- pH 2.5 on last ABG - continue ventilatory support - continue IV fluids - continue pressor support # acute hypoxic respiratory failure- patient intubated upon arrival - oxygen saturations 100% on 100% FiO2 chest x-ray (personally reviewed and interpreted) bilateral infiltrates- blood cultures pending pulmonary embolism certainly remains in the differential - continue empiric heparinization - planning for bronchoscopy today - continue empiric treatment for healthcare associated pneumonia # Severe Metabolic acidosis - presumed secondary to lactic acidosis and sepsis - continue aggressive IV fluid - continue pressors - continue IV bicarbonates # coronary artery disease status post LAD stenting 2015- indeterminate troponins 0.1-> 0.21 this morning echo (reviewed) no segmental wall motion abnormalities preserved ejection fraction EKG( personally reviewed and interpreted) improved lateral precordial ST depression - patient on IV heparin - cardiology following # macrocytic anemia- abrupt drop in hemoglobin overnight suspect related to aggressive fluid resuscitation with approximately 6 L of normal saline H&H - follow closely # prophylaxis on full-dose anticoagulation # diet will begin trickle feeds through G-tube # disposition- greater than 2 midnights the patient remains critically ill requiring IV pressors and ventilatory support I have discussed the case with Dr. Escoto- plan for bronchoscopy today to better understand the patient's pulmonary pressures on the meds Subjective: shortness of breath upon presentation Objective: Vital Signs Temp Pulse Resp BP Pulse Ox 37.8 C 93 30 H 105/50 L 100 09/19/16 14:00 09/19/16 14:00 09/19/16 14:00 09/19/16 14:00 09/19/16 14:00 Laboratory Results 09/19/16 04:45 09/19/16 04:51 09/18/16 09/19/16 09/20/16 05:59 05:59 05:59 Intake Total 5402.7 Output Total 418 160 Balance 4984.7 -160 PT 13.5 SEC (12.0-15.0) 09/18/16 22:25 INR 1.04 (0.83-1.16) 09/18/16 22:25 - Physical Exam Constitutional: appears nourished Eyes: anicteric sclera Ears, Nose, Mouth, Throat: dry mucous membranes Cardiovascular: regular rate and rhythym, systolic murmur, tachycardia Respiratory: No expiratory wheeze, No inspiratory crackles Gastrointestinal: normoactive bowel sounds Genitourinary: no bladder fullness Skin: warm, normal color Musculoskeletal: No asymmetric calves Neurologic: No AAOx3 Psychiatric: No interacting appropriately, No agitated Lymph, Heme, Immunologic: no cervical LAD ICD10 Worksheet Patient Problems: Problems Problem Status Diagnosed Acute bronchitis Acute Cardiogenic shock Acute Pneumonia Acute Chest pain Acute Chest wall pain Acute
[2016-09-19 14:50] LABS: GLUCOSE 500 mg/dL (70-100)
[2016-09-19] MEDS: VANCOMYCIN 750 MG in D5W 150 ML IV SCH (14:59)
[2016-09-19] MEDS ORDERED: PROTOCOL POTASSIUM 1 DOSE MISC PRN (15:10)
[2016-09-19] MEDS ORDERED: PROTOCOL CALCIUM 1 DOSE IV PRN (15:10)
[2016-09-19] MEDS ORDERED: PROTOCOL MAGNESIUM 1 DOSE IV PRN (15:10)
[2016-09-19 15:49] LABS: POTASSIUM 3.6 mEq/L (3.5-5.2)
[2016-09-19 16:31] LABS: PHENCYCLIDINE URINE BCH < 6 ng/ml (NEGATIVE); TETRAHYDROCANNABINOL URINE < 5 ng/mL (NEGATIVE)
[2016-09-19 16:45] LABS: PHENCYCLIDINE URINE BCH NEGATIVE (NEGATIVE); TETRAHYDROCANNABINOL URINE NEGATIVE (NEGATIVE)
[2016-09-19 16:57] LABS: GLUCOSE 536 mg/dL (70-100)
[2016-09-19] MEDS: POTASSIUM Cl (KCl) 50 ML IV SCH ×3 (17:19→17:23)
[2016-09-19] MEDS: EPINEPHrine 4 MG in D5W 1,000 ML IV SCH ×2 (17:36→21:54)
[2016-09-19] MEDS: HYDROCORTISONE 100 MG/2 ML VIAL IVP SCH (17:39)
[2016-09-19 19:23] LABS: ALANINE AMINOTRANSFERASE 27 IU/L (21-72); ALBUMIN 1.8 g/dL (3.5-5.0); ALKALINE PHOSPHATASE 24 IU/L (38-126); ANION GAP 9 mEq/L (8-16); ASPARTATE AMINOTRANSFERASE 25 IU/L (17-59); BILIRUBIN,TOTAL 0.9 mg/dL (0.1-1.4); CARBON DIOXIDE 15 mEq/l (22-31); CHLORIDE 97 mEq/L (97-110); GLOMERULAR FILTRATION RATE > 60; POTASSIUM 4.1 mEq/L (3.5-5.2); SODIUM 121 mEq/L (134-144)
[2016-09-19 19:29] LABS: CALCIUM 5.7 mg/dL (8.5-10.4); GLUCOSE 541 mg/dL (70-100)
[2016-09-19] MEDS ORDERED: CALCIUM GLUCONATE 50 ML IV ONE (20:39)
[2016-09-19] MEDS: FAMOTIDINE 20 MG/NACL 50 ML IV SCH (21:36)
[2016-09-19] MEDS: PROPOFOL/EMULSION 100 ML IV SCH (21:59)
[2016-09-19] MEDS ORDERED: ROCURONIUM 100 MG/10 ML VIAL IVP ONE (22:30)
[2016-09-19] MEDS ORDERED: POTASSIUM Cl (KCl) 50 ML IV ONE (23:34)
[2016-09-19] MEDS ORDERED: AMIODARONE HCL 100 ML IV ONE (23:45)
[2016-09-20] MEDS: HYDROCORTISONE 100 MG/2 ML VIAL IVP SCH ×5 (00:07→23:14)
[2016-09-20] MEDS: VANCOMYCIN 750 MG in D5W 150 ML IV SCH ×2 (01:09→14:47)
[2016-09-20] MEDS: SODIUM BICARBONATE 150 MEQ in D5W 1,000 ML IV SCH ×2 (01:50→23:36)
[2016-09-20 04:14] LABS: HEMOGLOBIN 10.5 g/dL (13.7-17.5); MEAN CELL VOLUME 93.5 fL (81.5-99.8); RED CELL DISTRIBUTION WIDTH 11.9 % (11.5-15.2)
[2016-09-20 04:15] LABS: IONIZED CALCIUM 0.92 MMOL/L (1.12-1.30)
[2016-09-20 04:23] LABS: HEMATOCRIT 28.9 % (40.0-51.0); MEAN CELL HEMOGLOBIN CONCENTR. 36.3 g/dL (32.4-36.7); RED BLOOD CELL COUNT 3.09 10^6/uL (4.40-6.38)
[2016-09-20] MEDS ORDERED: CALCIUM GLUCONATE 50 ML IV ONE (04:45)
[2016-09-20 04:53] LABS: ALANINE AMINOTRANSFERASE 33 IU/L (21-72); ALBUMIN 1.7 g/dL (3.5-5.0); ALKALINE PHOSPHATASE 21 IU/L (38-126); ANION GAP 8 mEq/L (8-16); ASPARTATE AMINOTRANSFERASE 23 IU/L (17-59); BILIRUBIN,TOTAL 1.1 mg/dL (0.1-1.4); CARBON DIOXIDE 15 mEq/l (22-31); CHLORIDE 98 mEq/L (97-110); CREATININE 0.9 mg/dL (0.7-1.3); GLOMERULAR FILTRATION RATE > 60; GLUCOSE 251 mg/dL (70-100); POTASSIUM 4.3 mEq/L (3.5-5.2); SODIUM 121 mEq/L (134-144)
[2016-09-20 05:05] LABS: TROPONIN I 0.113 ng/mL (0-0.034)
[2016-09-20] MEDS: CEFEPIME HCL 2 GM in D5W 100 ML IV SCH ×3 (05:08→21:45)
[2016-09-20 05:09] LABS: CALCIUM 5.9 mg/dL (8.5-10.4)
[2016-09-20] MEDS: INSULIN REGULAR HUMAN 100 UNIT in NS 100 ML IV SCH ×2 (05:17→07:32)
[2016-09-20] MEDS ORDERED: MAGNESIUM SULF 2 GM/WATER 50 ML IV ONE (06:15)
[2016-09-20] MEDS: fentaNYL/NACL 100 ML IV SCH ×2 (07:32→23:14)
[2016-09-20] MEDS: NOREPINEPHRINE BITARTRATE 16 MG in NS 250 ML IV SCH (07:35)
[2016-09-20] MEDS: FAMOTIDINE 20 MG/NACL 50 ML IV SCH ×2 (08:12→20:24)
[2016-09-20] MEDS: CLOPIDOGREL BISULFATE 75 MG TAB TUBE SCH (08:13)
[2016-09-20] MEDS: HEPARIN/DEXTROSE 500 ML IV SCH (08:13)
[2016-09-20] MEDS: ASPIRIN 81 MG CHEWABLE TAB TUBE SCH (08:14)
[2016-09-20] MEDS ORDERED: PETROLAT,WHT/MIN OIL/SOD CHL 3.5 GM OPHT.OINT EACHEYE PRN (08:19)
[2016-09-20] MEDS ORDERED: PROTOCOL K PHOSPHATE 1 DOSE IV PRN (08:20)
[2016-09-20 08:40] LABS: BASE EXCESS -8.4 mEq/L (-2.5-2.5); BICARBONATE 16 mEq/L (22-26); MEASURED OXYGEN SATURATION 92 % (92-95); PCO2 30 mmHg (34-38); PO2 68 mmHg (65-75); TCO2 17 mEq/L (23-27)
[2016-09-20 08:41] LABS: ASSIST CONTROL YES; O2 CONCENTRATIION 80 % (0-100); P/F RATIO 85 RATIO
[2016-09-20 08:42] LABS: END TIDAL CO2 17; TOTAL RATE 30
[2016-09-20] MEDS: VASOPRESSIN/DEXTROSE 250 ML IV SCH ×2 (11:38→22:51)
[2016-09-20 12:26] LABS: POTASSIUM 3.6 mEq/L (3.5-5.2)
[2016-09-20] MEDS: POTASSIUM Cl (KCl) 50 ML IV SCH ×2 (12:58→13:46)
--- NOTE | 2016-09-20 13:00 | CPEKG ---
Heart Rate: 101 RR Interval: 594 P-R Interval: 168 QRSD Interval: 74 QT Interval: 380 QTC Interval: 493 P Dameron: 70 QRS Dameron: 68 T Wave Dameron: 78 EKG Severity - ABNORMAL ECG - EKG Impression: SINUS TACHYCARDIA EKG Impression: MULTIPLE PREMATURE COMPLEXES SUPRAVENTRICULAR EKG Impression: LOW VOLTAGE THROUGHOUT EKG Impression: BORDERLINE T ABNORMALITIES, ANT-LAT LEADS EKG Impression: BORDERLINE PROLONGED QT INTERVAL Electronically Signed By: Torres Tyson 20-Sep-2016 19:28:23
[2016-09-20] MEDS: D50W 25 GM/50 ML SYR IVP PRN ×2 (13:56→17:55)
--- NOTE | 2016-09-20 14:08 | PDINTPN ---
Charter Representative Progress Note Assessment/Plan: Assessment/plan: * Septic shock with significant improvement in pressor requirements today. DDx includes PE and LL PNA. Now that he is more stable clinically will get CTA to look for PE. Continue abx. Titrate pressors with epi first, followed by levophed , followed by vasopressin. UOP adequate. Continue with current abx. WBC increased today, but remains on steroids. If able to succeed with pressors will dc hydrocortisone. * Respiratory failure with hypoxia: as above. Sat 100% so titrating FiO2 as tolerated. If unable to get <50-60% increase PEEP which was decreased to minimize hemoydnamic effect. * SVT- likely related to dobutamine and resolved once dc'd. * Troponin likely related to hypotension and subendocardial ischemia. Continues to improve. * Hyponatremia of unclear source. Probably excess FW in multiple drips 09/19. Follow for now; if persists would check serum/urine Osms. * Critical care time 45 minutes * Objective: Vital Signs Temp Pulse Resp BP Pulse Ox 37.8 C 102 H 27 H 106/52 L 100 09/20/16 13:00 09/20/16 13:00 09/20/16 13:00 09/20/16 13:00 09/20/16 13:00 Laboratory Results 09/20/16 04:05 09/20/16 12:01 09/19/16 09/20/16 09/21/16 05:59 05:59 05:59 Intake Total 5402.7 77139.5 Output Total 418 2880 Balance 4984.7 8735.5 PT 13.5 SEC (12.0-15.0) 09/18/16 22:25 INR 1.04 (0.83-1.16) 09/18/16 22:25 Physical Exam - Physical Exam General Appearance: no apparent distress, other (sedated on vent) EENT: PERRL/EOMI, normal ENT inspection Neck: supple, normal inspection Respiratory: lungs clear, normal breath sounds, No respiratory distress, No rales, No rhonchi, No wheezing Cardiac/Chest: normal peripheral pulses, regular rate, rhythm, No edema Abdomen: normal bowel sounds, non-tender, soft Skin: normal color, warm/dry, No rash Lymphatic: no adenopathy Extremities: normal inspection, No pedal edema Neuro/Psych: No abnormal client professional II-XII ICD10 Worksheet Patient Problems: Problems Problem Status Diagnosed Acute bronchitis Acute Cardiogenic shock Acute Pneumonia Acute Chest pain Acute Chest wall pain Acute
--- NOTE | 2016-09-20 14:17 | HOSPPROG ---
Hospitalist Progress Note Assessment/Plan: 76 yo M w cad, copd admitted w sepsis Acute septic shock- presumed from pulmonary source given cxr. ( tachycardia, leukocytosis, and hypotension at presentation) remains hypotensive requiring IV fluid and pressor support this morning- - continue ventilatory support - continue IV fluids - continue pressor support; off epi, now on vasopressin and levophed ( latter being weaned) acute hypoxic respiratory failure- patient intubated upon arrival - oxygen saturations 100% on 100% FiO2 chest x-ray (personally reviewed and interpreted) bilateral infiltrates- blood cultures pending pulmonary embolism certainly remains in the differential - continue empiric heparinization - bronch yesterday pretty unremarkable - continue empiric treatment for healthcare associated pneumonia Severe Metabolic acidosis - presumed secondary to lactic acidosis and sepsis - continue aggressive IV fluid - continue pressors - continue IV bicarbonates hyponatremia: repeat now and check Uosm heparin in d5W also on bicarb but that has a fair amount of Na coronary artery disease status post LAD stenting 2015- indeterminate troponins 0.1-> 0.21->.118 echo (reviewed) no segmental wall motion abnormalities preserved ejection fraction EKG( personally reviewed and interpreted) improved lateral precordial ST depression - patient on IV heparin - cardiology following macrocytic anemia- abrupt drop in hemoglobin overnight suspect related to aggressive fluid resuscitation with approximately 6 L of normal saline H&H - follow closely prophylaxis on full-dose anticoagulation diet started on JEVITY but held due to high residuals disposition- greater than 2 midnights the patient remains critically ill requiring IV pressors and ventilatory support Subjective: case d/w dr gould. cxr's w b/l pulm infiltrates (interp by me). remains on pressors. Na worsening Objective: Vital Signs Temp Pulse Resp BP Pulse Ox 37.8 C 93 30 H 139/67 H 100 09/20/16 14:00 09/20/16 14:00 09/20/16 14:00 09/20/16 14:00 09/20/16 14:00 Laboratory Results 09/20/16 04:05 09/20/16 12:01 09/19/16 09/20/16 09/21/16 05:59 05:59 05:59 Intake Total 5402.7 36296.5 Output Total 418 2880 Balance 4984.7 8735.5 PT 13.5 SEC (12.0-15.0) 09/18/16 22:25 INR 1.04 (0.83-1.16) 09/18/16 22:25 - Physical Exam Constitutional: other (intubated, sedated) Eyes: PERRL, anicteric sclera Ears, Nose, Mouth, Throat: moist mucous membranes, hearing normal Cardiovascular: regular rate and rhythym, no murmur, rub, or gallop Respiratory: rhonchi (rhoncorous b/l), other Gastrointestinal: normoactive bowel sounds, soft, non-tender abdomen Genitourinary: li in urethra Skin: warm, normal color Musculoskeletal: No full muscle strength Neurologic: sensation intact bilaterally, No AAOx3 Psychiatric: not anxious, No interacting appropriately Lymph, Heme, Immunologic: no cervical LAD ICD10 Worksheet Patient Problems: Problems Problem Status Diagnosed Acute bronchitis Acute Cardiogenic shock Acute Pneumonia Acute Chest pain Acute Chest wall pain Acute
--- NOTE | 2016-09-20 15:00 | SOAPPROG ---
SOAP Progress Note Assessment/Plan: 1. Respiratory distress - See critical care note 2. Hypotension - See critical care note 3. 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 --> Continue secondary prevention with asa and plavix. --> Resume metoprolol, losartan, and atorvastatin when appropriate. 4. Elevated troponin - Pt presents with an elevated troponin in the setting of hypotension and respiratory distress. Echocardiogram performed during symptoms demonstrates hyperdynamic systolic function. Suspect secondary to supply demand miss match. Do not suspect ACS. 5. Arrhythmias - Pt with an episode of SVT in setting of dobutamine and is s/p DCCV on 09/19. Telemetry monitoring with sinus tachycardia and frequent PACs vs short runs of A-fib. Rhythms likely secondary to acute illness as well as pressor support. --> agree with current pressor management --> Will continue to follow 09/20/16 14:52 Subjective: Pt intubated and sedate Troponin 0.012 to 0.210 to 0.113. Telemetry with sinus tachycardia, frequent PACs vs A-fib Objective: Vital Signs Temp Pulse Resp BP Pulse Ox 37.8 C 93 30 H 139/67 H 100 09/20/16 14:00 09/20/16 14:00 09/20/16 14:00 09/20/16 14:00 09/20/16 14:00 Laboratory Results 09/20/16 04:05 09/19/16 09/20/16 09/21/16 05:59 05:59 05:59 Intake Total 5402.7 39484.5 Output Total 418 2880 Balance 4984.7 8735.5 PT 13.5 SEC (12.0-15.0) 09/18/16 22:25 INR 1.04 (0.83-1.16) 09/18/16 22:25 Physical Exam - Physical Exam General Appearance: other (sedate) Respiratory: other (corse breath sounds) Cardiac/Chest: tachycardia, systolic murmur Abdomen: normal bowel sounds, non-tender, soft Skin: No embolic lesions Extremities: pedal edema Neuro/Psych: other (sedate) ICD10 Worksheet Patient Problems: Problems Problem Status Diagnosed Acute bronchitis Acute Cardiogenic shock Acute Pneumonia Acute Chest pain Acute Chest wall pain Acute
[2016-09-20] MEDS ORDERED: IOPAMIDOL (ISOVUE 370) 100 ML BTL IV ONE (15:28)
[2016-09-20 15:38] LABS: ANION GAP 8 mEq/L (8-16); CARBON DIOXIDE 17 mEq/l (22-31); CHLORIDE 96 mEq/L (97-110); CREATININE 0.8 mg/dL (0.7-1.3); GLOMERULAR FILTRATION RATE > 60; GLUCOSE 94 mg/dL (70-100); POTASSIUM 4.2 mEq/L (3.5-5.2); SODIUM 121 mEq/L (134-144)
--- NOTE | 2016-09-20 16:42 | CT ---
CT Pulmonary Angiography History: Respiratory distress. Comparison: Portable chest September 19, 2016, CT angiogram of the chest January 12, 2016. Technique: Axial contrast-enhanced images were obtained through the chest following the uneventful in travenous administration of 90 mL Isovue-370. Creatinine is 0.9. Multiplanar reformations were perfo rmed through the pulmonary arteries. Dose reduction techniques were utilized. Findings: Endotracheal tube tip is in good position, 4.3 cm above the tahira. NG tube extends through the visualized portion of the stomach. Left PICC tip is in the mid SVC. Visualization of peripheral segmental and subsegmental vessels is limited by respiratory motion with no visible pulmonary embolus . Dense left lower lobe consolidation and moderate right lower lobe consolidation is present with sma ll bilateral pleural effusions. There is mild peribronchial thickening with scattered mucous plugging . Heart size is normal. The interventricular septum is normal. The aorta is normal caliber with mild atherosclerosis without dissection. Three-vessel coronary artery atherosclerosis is present with a st ent in the LAD. Moderate atherosclerosis is present in the proximal right brachiocephalic artery with moderate stenosis. Moderate atherosclerosis is present in the proximal left subclavian artery with n o significant stenosis. No pathologically enlarged lymph nodes are identified. Degenerative change is present in the spine. Diffuse fatty infiltration is present in the liver. There is a small volume of ascites. Impression: 1. No visible pulmonary embolus. 2. Dense left lower lobe consolidation and mild right lower lobe consolidation, suspicious for pneumo afbiola/aspiration. 3. Small bilateral pleural effusions. 4. Small volume of ascites. 5. Moderate atherosclerosis in the proximal right brachiocephalic artery with moderate focal stenosis . 6. Coronary artery atherosclerosis. 7. Additional findings as above. Findings discussed with Mary, the patient's nurse today at 1636 hours.
[2016-09-20] MEDS: VANCOMYCIN HCL/NORMAL SALINE 250 ML IV SCH (17:11)
[2016-09-20] MEDS: PROPOFOL/EMULSION 100 ML IV SCH (21:45)
[2016-09-20] MEDS: ACETAMINOPHEN 650 MG SUPP PR PRN (21:54)
[2016-09-20] MEDS ORDERED: FUROSEMIDE 40 MG/4 ML VIAL IVP ONE (23:52)
[2016-09-21 00:39] LABS: POTASSIUM 4.1 mEq/L (3.5-5.2)
[2016-09-21] MEDS: NS 1,000 ML IV SCH ×2 (02:10→17:35)
[2016-09-21] MEDS: VANCOMYCIN HCL/NORMAL SALINE 250 ML IV SCH ×2 (02:10→14:50)
[2016-09-21] MEDS: CEFEPIME HCL 2 GM in D5W 100 ML IV SCH ×3 (05:11→21:39)
[2016-09-21] MEDS: HYDROCORTISONE 100 MG/2 ML VIAL IVP SCH ×4 (05:11→23:49)
[2016-09-21 05:46] LABS: BASE EXCESS -4.9 mEq/L (-2.5-2.5); BICARBONATE 16 mEq/L (22-26); MEASURED OXYGEN SATURATION 97 % (92-95); PO2 85 mmHg (65-75); TCO2 17 mEq/L (23-27)
[2016-09-21 05:47] LABS: IONIZED CALCIUM 0.88 MMOL/L (1.12-1.30)
[2016-09-21 05:49] LABS: ASSIST CONTROL YES; END TIDAL CO2 12; O2 CONCENTRATIION 40 % (0-100); P/F RATIO 213 RATIO; TOTAL RATE 30
[2016-09-21 05:50] LABS: PCO2 19 mmHg (34-38)
[2016-09-21] MEDS: PROPOFOL/EMULSION 100 ML IV SCH ×2 (06:15→17:36)
[2016-09-21 06:21] LABS: ANION GAP 8 mEq/L (8-16); CARBON DIOXIDE 17 mEq/l (22-31); CHLORIDE 94 mEq/L (97-110); CREATININE 0.9 mg/dL (0.7-1.3); GLOMERULAR FILTRATION RATE > 60; GLUCOSE 168 mg/dL (70-100); MAGNESIUM 1.4 mg/dL (1.6-2.3); POTASSIUM 3.2 mEq/L (3.5-5.2)
[2016-09-21 06:24] LABS: SODIUM 119 mEq/L (134-144)
[2016-09-21 06:25] LABS: CALCIUM 5.9 mg/dL (8.5-10.4)
[2016-09-21] MEDS ORDERED: MAGNESIUM SULF 2 GM/WATER 50 ML IV ONE (06:28)
[2016-09-21] MEDS ORDERED: CALCIUM GLUCONATE 2 GM in NS 50 ML IV ONE (06:28)
[2016-09-21] MEDS: POTASSIUM Cl (KCl) 50 ML IV SCH ×4 (06:35→17:35)
[2016-09-21] MEDS ORDERED: HYDROCORTISONE 100 MG/2 ML VIAL IVP SCH (09:00)
[2016-09-21] MEDS ORDERED: FUROSEMIDE 40 MG/4 ML VIAL IVP ONE (09:43)
--- NOTE | 2016-09-21 09:49 | HOSPPROG ---
Hospitalist Progress Note Assessment/Plan: 76 yo M w cad, copd admitted w sepsis Acute septic shock- presumed from pulmonary source given cxr. ( tachycardia, leukocytosis, and hypotension at presentation) pressors off as of this AM actually hypertensive this likely represents resolution of septic physiology acute hypoxic respiratory failure- patient intubated upon arrival - on abx for HCAP no PE on CT sats dropping this AM- check cxr and diurese AF: seen on monitor 12 lead pending cardiology favors full dose anticoag- will discuss w crit care MD Severe Metabolic acidosis - presumed secondary to lactic acidosis and sepsis - continue aggressive IV fluid - continue IV bicarbonates hyponatremia: continues to fall suspect hypotonic fluids and now hypervvolemic hyponatremia repeat chem7 at 11A if continues to fall w diuresis, sill have renal see patient coronary artery disease status post LAD stenting 2015- indeterminate troponins 0.1-> 0.21->.118 echo (reviewed) no segmental wall motion abnormalities preserved ejection fraction EKG( personally reviewed and interpreted) improved lateral precordial ST depression - patient on IV heparin - cardiology following macrocytic anemia- abrupt drop in hemoglobin overnight suspect related to aggressive fluid resuscitation with approximately 6 L of normal saline hct has continued to fall suspect 2/2 volume resuscitation but brittney repeat now no signs active bleeding prophylaxis: will discuss full anticoag vs initiation of proph LMWH diet started on JEVITY but held due to high residuals disposition- greater than 2 midnights the patient remains critically ill requiring IV pressors and ventilatory support Subjective: case d/w dr bloom. tele: AF (interp by ri). off pressors Objective: Vital Signs Temp Pulse Resp BP Pulse Ox 37 C 73 20 107/47 L 100 09/21/16 06:00 09/21/16 07:00 09/21/16 07:00 09/21/16 07:00 09/21/16 07:00 Microbiology 09/20/16 11:34 - Final Sputum, Induced/Suctioned Laboratory Results 09/20/16 04:05 09/21/16 05:40 09/20/16 09/21/16 09/22/16 05:59 05:59 05:59 Intake Total 82464.5 6267.8 Output Total 2880 2885 Balance 8735.5 3382.8 PT 13.5 SEC (12.0-15.0) 09/18/16 22:25 INR 1.04 (0.83-1.16) 09/18/16 22:25 - Physical Exam Constitutional: no apparent distress, appears nourished Eyes: PERRL, anicteric sclera Ears, Nose, Mouth, Throat: moist mucous membranes, hearing normal Cardiovascular: no murmur, rub, or gallop, irregularly irregular, edema, No regular rate and rhythym Respiratory: bronchial breath sounds, rhonchi, No no rales or rhonchi Gastrointestinal: normoactive bowel sounds, soft, non-tender abdomen, distension Genitourinary: li in urethra Skin: warm, normal color Musculoskeletal: full muscle strength, no muscle tenderness Neurologic: other (sedated) Lymph, Heme, Immunologic: no cervical LAD ICD10 Worksheet Patient Problems: Problems Problem Status Diagnosed Acute bronchitis Acute Cardiogenic shock Acute Pneumonia Acute Chest pain Acute Chest wall pain Acute
--- NOTE | 2016-09-21 10:10 | DX ---
Portable Chest, Single View 9:46 a.m. Hours Indication: Oxygen desaturation. Comparison: Portable chest dated September 19, 2016 Findings: The ET tube, esophagogastric tube, and left subclavian line all remain in good position. Le ft basilar consolidation is worsening and a new subpulmonic effusion has developed on the left. Diffu se moderate peribronchial thickening and hazy groundglass airspace disease in the right base is uncha nged. Heart size is upper normal for portable technique. Impression: 1. Support devices in good position. 2. Worsening left basilar consolidation and new small left pleural effusion.
--- NOTE | 2016-09-21 10:10 | CPEKG ---
Heart Rate: 113 RR Interval: 531 P-R Interval: 164 QRSD Interval: 80 QT Interval: 320 QTC Interval: 439 P On[place]: 74 QRS [place]: 70 T Wave [place]ancock: 39 EKG Severity - ABNORMAL ECG - EKG Impression: SINUS TACHYCARDIA MULTIPLE PACS PVCS EKG Impression: RUN OF VENTRICULAR PREMATURE COMPLEXES EKG Impression: LOW VOLTAGE WITH RIGHT AXIS DEVIATION Electronically Signed By: Torres Tyson 21-Sep-2016 12:11:23
[2016-09-21] MEDS: ASPIRIN 81 MG CHEWABLE TAB TUBE SCH (10:12)
[2016-09-21] MEDS: FAMOTIDINE 20 MG/NACL 50 ML IV SCH ×2 (10:12→20:23)
[2016-09-21] MEDS: ENOXAPARIN 40 MG/0.4 ML SYR SC SCH (10:12)
[2016-09-21] MEDS: CLOPIDOGREL BISULFATE 75 MG TAB TUBE SCH (10:12)
--- NOTE | 2016-09-21 10:52 | SOAPPROG ---
SOAP Progress Note Assessment/Plan: 1. Respiratory distress - Secondary to pneumonia. No evidence of PE on CT angiogram. 2. Hypotension - Secondary to sepsis. 3. 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 --> Continue secondary prevention with asa and plavix. --> Resume metoprolol, losartan, and atorvastatin when appropriate. 4. Elevated troponin - Pt presents with an elevated troponin in the setting of hypotension and respiratory distress. Echocardiogram performed during symptoms demonstrates hyperdynamic systolic function. Suspect secondary to supply demand miss match. Do not suspect ACS. 5. Arrhythmias - Pt with an episode of SVT in setting of dobutamine and is s/p DCCV on 09/19. Telemetry monitoring with sinus tachycardia, frequent PACs, and PAF. Suspect secondary to acute illness. --> Resume metoprolol when stable --> Continue heparin --> Continue to follow. Subjective: Pt intubated and sedate Pressor support has decreased Objective: Vital Signs Temp Pulse Resp BP Pulse Ox 37 C 73 20 107/47 L 100 09/21/16 06:00 09/21/16 07:00 09/21/16 07:00 09/21/16 07:00 09/21/16 07:00 Microbiology 09/20/16 11:34 - Final Sputum, Induced/Suctioned Laboratory Results 09/20/16 04:05 09/21/16 05:40 09/20/16 09/21/16 09/22/16 05:59 05:59 05:59 Intake Total 56295.5 6267.8 Output Total 2880 2885 Balance 8735.5 3382.8 PT 13.5 SEC (12.0-15.0) 09/18/16 22:25 INR 1.04 (0.83-1.16) 09/18/16 22:25 Physical Exam - Physical Exam General Appearance: other (sedate) Respiratory: rhonchi Cardiac/Chest: irregularly irregular Abdomen: normal bowel sounds, non-tender, soft Skin: normal color Extremities: pedal edema ICD10 Worksheet Patient Problems: Problems Problem Status Diagnosed Acute bronchitis Acute Cardiogenic shock Acute Pneumonia Acute Chest pain Acute Chest wall pain Acute
[2016-09-21 11:48] LABS: % IMMATURE GRANULYOCYTES 1.3 % (0.0-1.1); ABSOLUTE IMMATURE GRANULOCYTES 0.28 10^3/uL (0.00-0.10); ADD DIFF? NO; ADD MORPH? NO; ADD SCAN? YES; ATYPICAL LYMPHOCYTE FLAG 0 (0-99); FRAGMENT RBC FLAG 0 (0-99); HEMATOCRIT 26.1 % (40.0-51.0); HEMOGLOBIN 9.7 g/dL (13.7-17.5); LIPEMIA HEMOLYSIS FLAG 90 (0-99); MEAN CELL HEMOGLOBIN 34.5 pg (27.9-34.1); MEAN CELL HEMOGLOBIN CONCENTR. 37.2 g/dL (32.4-36.7); MEAN CELL VOLUME 92.9 fL (81.5-99.8); MEAN PLATELET VOLUME 10.1 fL (8.7-11.7); PLATELET CLUMPS FLAG 0 (0-99); PLATELET COUNT 132 10^3/uL (150-400); RED BLOOD CELL COUNT 2.81 10^6/uL (4.40-6.38); RED CELL DISTRIBUTION WIDTH 11.9 % (11.5-15.2)
[2016-09-21 11:56] LABS: LEFT SHIFT FLG 300 (0-99)
[2016-09-21 12:57] LABS: SCAN POSITIVE
[2016-09-21] MEDS: VASOPRESSIN/DEXTROSE 250 ML IV SCH ×2 (13:01→23:48)
[2016-09-21 13:04] LABS: ASSIST CONTROL YES; BASE EXCESS -4.3 mEq/L (-2.5-2.5); BICARBONATE 20 mEq/L (22-26); MEASURED OXYGEN SATURATION 95 % (92-95); PCO2 34 mmHg (34-38); PO2 81 mmHg (65-75); TCO2 21 mEq/L (23-27)
[2016-09-21 13:05] LABS: O2 CONCENTRATIION 40 % (0-100); P/F RATIO 203 RATIO; TOTAL RATE 20
[2016-09-21 13:12] LABS: ELLIPTOCYTES 1+; PLATELET ESTIMATE DECREASED (ADEQ); TOXIC VACUOLIZATION PRESENT
--- NOTE | 2016-09-21 14:12 | PDINTPN ---
Contracts Administrator Progress Note Assessment/Plan: Assessment/plan: 76 M with known CAD, schizophrenia admitted 09/18 with SOB and hypoxia requiring urgent intubation in ED, followed by hypotension. His BP was treated with levophed and dobutamine and he developed refractory SVT requiring cardioversion. His DDx including septic shock from PNA vs PE so he was treated with Abx and a UFH followed by transfer to ICU. He required multiple pressors to maintain an adequate BP so hydrocortisone added, followed by NICOM-assisted fluid challenges. Early PAP-plateau was >10 so emergent bronch performed without major obstruction (kinked ETT) and minimal but clearly white thickened secretions in LLL. * Septic shock likely 2/2 PNA +/- hypovolemia. Significant reduction in pressors today. PE ruled out by CTA and LE doppler US, so heparin drip dc'd. Continuing current abx and fu on cultures. Can likely rapidly taper hydrocortisone and follow WBC * Respiratory failure with hypoxia: CXR without much change today. Continue titrating FiO2 as tolerated. * SVT- likely related to dobutamine and resolved once dc'd. EKG today shows ST with frequent PAC's. Would prefer DVT prophylactic heparin versus full doese for ? PAF. * Troponin likely related to hypotension and subendocardial ischemia. Appreciate cards help. * Hyponatremia of unclear source. Probably excess FW in multiple drips 09/19. Continues to decline. UOsm pending. Vasopressin may be playing small role. * Chronic opiate dependancy. Remains on Fentanyl drip and wakes appropriately. * Critical care time 35 minutes Objective: Vital Signs Temp Pulse Resp BP Pulse Ox 36.3 C 84 20 112/46 L 97 09/21/16 12:54 09/21/16 12:54 09/21/16 12:54 09/21/16 12:54 09/21/16 12:54 Microbiology 09/20/16 11:34 - Final Sputum, Induced/Suctioned Laboratory Results 09/21/16 11:30 09/20/16 09/21/16 09/22/16 05:59 05:59 05:59 Intake Total 84382.5 6267.8 Output Total 2880 2885 Balance 8735.5 3382.8 PT 13.5 SEC (12.0-15.0) 09/18/16 22:25 INR 1.04 (0.83-1.16) 09/18/16 22:25 Physical Exam - Physical Exam General Appearance: no apparent distress, other (sedated on vent) EENT: PERRL/EOMI, pharynx normal, ET tube Neck: full range of motion, supple Respiratory: lungs clear, normal breath sounds, No respiratory distress, No rales, No rhonchi, No wheezing Cardiac/Chest: normal peripheral pulses, regular rate, rhythm, No edema Abdomen: non-tender, soft, No distended, No guarding, No rebound Skin: normal color, warm/dry, No rash Lymphatic: no adenopathy Extremities: normal range of motion, non-tender, No pedal edema Neuro/Psych: No abnormal 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
[2016-09-21 15:02] LABS: ANION GAP 5 mEq/L (8-16); CALCIUM 6.2 mg/dL (8.5-10.4); CARBON DIOXIDE 24 mEq/l (22-31); CHLORIDE 92 mEq/L (97-110); CREATININE 0.9 mg/dL (0.7-1.3); GLOMERULAR FILTRATION RATE > 60; GLUCOSE 55 mg/dL (70-100); POTASSIUM 3.2 mEq/L (3.5-5.2); SODIUM 121 mEq/L (134-144)
[2016-09-21] MEDS: fentaNYL/NACL 100 ML IV SCH (15:58)
[2016-09-21] MEDS ORDERED: POTASSIUM Cl (KCl) 20 MEQ/50 ML BAG IV ONE (16:30)
[2016-09-22 01:37] LABS: POTASSIUM 3.4 mEq/L (3.5-5.2)
[2016-09-22] MEDS: POTASSIUM Cl (KCl) 50 ML IV SCH ×5 (01:55→13:59)
[2016-09-22] MEDS: VANCOMYCIN HCL/NORMAL SALINE 250 ML IV SCH (03:56)
[2016-09-22] MEDS: PROPOFOL/EMULSION 100 ML IV SCH ×2 (03:58→20:07)
[2016-09-22 04:42] LABS: BASE EXCESS -2.3 mEq/L (-2.5-2.5); BICARBONATE 22 mEq/L (22-26); MEASURED OXYGEN SATURATION 95 % (92-95); PCO2 38 mmHg (34-38); PO2 80 mmHg (65-75); TCO2 23 mEq/L (23-27)
[2016-09-22 04:43] LABS: CPAP YES; O2 CONCENTRATIION 40 % (0-100); P/F RATIO 200 RATIO; PATIENT RATE 20; PRESSURE SUPPORT 7
[2016-09-22 04:44] LABS: IONIZED CALCIUM 0.98 MMOL/L (1.12-1.30)
[2016-09-22] MEDS: CEFEPIME HCL 2 GM in D5W 100 ML IV SCH ×3 (05:18→21:30)
[2016-09-22] MEDS: HYDROCORTISONE 100 MG/2 ML VIAL IVP SCH (05:19)
[2016-09-22 05:45] LABS: ADD DIFF? YES; ADD MORPH? NO; ATYPICAL LYMPHOCYTE FLAG 0 (0-99); FRAGMENT RBC FLAG 0 (0-99); HEMATOCRIT 24.3 % (40.0-51.0); HEMOGLOBIN 8.8 g/dL (13.7-17.5); LIPEMIA HEMOLYSIS FLAG 90 (0-99); MEAN CELL HEMOGLOBIN 33.2 pg (27.9-34.1); MEAN CELL HEMOGLOBIN CONCENTR. 36.2 g/dL (32.4-36.7); MEAN CELL VOLUME 91.7 fL (81.5-99.8); MEAN PLATELET VOLUME 10.6 fL (8.7-11.7); PLATELET CLUMPS FLAG 0 (0-99); PLATELET COUNT 129 10^3/uL (150-400); RED BLOOD CELL COUNT 2.65 10^6/uL (4.40-6.38); RED CELL DISTRIBUTION WIDTH 11.9 % (11.5-15.2)
[2016-09-22 05:51] LABS: ADD SCAN? NO; LEFT SHIFT FLG 270 (0-99)
[2016-09-22] MEDS: VANCOMYCIN 1.25 GM in D5W 250 ML IV SCH ×2 (05:52→23:20)
[2016-09-22 06:18] LABS: ANION GAP 3 mEq/L (8-16); CALCIUM 6.1 mg/dL (8.5-10.4); CARBON DIOXIDE 24 mEq/l (22-31); CHLORIDE 94 mEq/L (97-110); CREATININE 0.9 mg/dL (0.7-1.3); GLOMERULAR FILTRATION RATE > 60; GLUCOSE 136 mg/dL (70-100); MAGNESIUM 1.8 mg/dL (1.6-2.3); POTASSIUM 4.1 mEq/L (3.5-5.2); SODIUM 121 mEq/L (134-144)
[2016-09-22] MEDS ORDERED: MAGNESIUM SULF 1 GM/DEXTROSE 100 ML IV ONE (06:21)
[2016-09-22] MEDS ORDERED: CALCIUM GLUCONATE 50 ML IV ONE (06:21)
[2016-09-22 07:40] LABS: PLATELET ESTIMATE ADEQUATE (ADEQ)
[2016-09-22] MEDS: fentaNYL/NACL 100 ML IV SCH (07:55)
[2016-09-22] MEDS: ENOXAPARIN 40 MG/0.4 ML SYR SC SCH (08:53)
[2016-09-22] MEDS: FAMOTIDINE 20 MG/NACL 50 ML IV SCH ×2 (08:54→20:07)
[2016-09-22] MEDS: ASPIRIN 81 MG CHEWABLE TAB TUBE SCH (08:56)
[2016-09-22] MEDS: CLOPIDOGREL BISULFATE 75 MG TAB TUBE SCH (08:56)
[2016-09-22] MEDS: VASOPRESSIN/DEXTROSE 250 ML IV SCH (08:58)
[2016-09-22] MEDS ORDERED: VANCOMYCIN HCL/NORMAL SALINE 250 ML IV SCH (09:00)
--- NOTE | 2016-09-22 09:59 | PDINTPN ---
Plate Preparer Progress Note Assessment/Plan: Assessment/plan: 76 M with known CAD, schizophrenia admitted 09/18 with SOB and hypoxia requiring urgent intubation in ED, followed by hypotension. His BP was treated with levophed and dobutamine and he developed refractory SVT requiring cardioversion. His DDx including septic shock from PNA vs PE so he was treated with Abx and a UFH followed by transfer to ICU. He required multiple pressors to maintain an adequate BP so hydrocortisone added, followed by NICOM-assisted fluid challenges. Early PAP-plateau was >10 so emergent bronch performed without major obstruction (kinked ETT) and minimal but clearly white thickened secretions in LLL. * Septic shock likely 2/2 PNA +/- hypovolemia. PE ruled out by CTA and LE doppler US negative. Weaned on cpap 12/27 today. Decrease sedation and trial of T piece with possible extubation today. * Respiratory failure with hypoxia: CXR without much change today. Continue titrating FiO2 as tolerated. * SVT- likely related to dobutamine and resolved once dc'd. EKG today shows ST with frequent PAC's. Would prefer DVT prophylactic heparin versus full doese for ? PAF. * Troponin likely related to hypotension and subendocardial ischemia. Appreciate cards help. * Hyponatremia of unclear source. Probably excess FW in multiple drips 09/19. Continues to decline. UOsm pending. Vasopressin may be playing small role. * Chronic opiate dependancy. Remains on Fentanyl drip and wakes appropriately. * Critical care time 35 minutes 09/22/16 09:57 Objective: Vital Signs Temp Pulse Resp BP Pulse Ox 37 C 68 20 110/46 L 98 09/22/16 09:00 09/22/16 09:00 09/22/16 09:00 09/22/16 09:00 09/22/16 09:00 Laboratory Results 09/22/16 05:30 09/22/16 05:30 09/21/16 09/22/16 09/23/16 05:59 05:59 05:59 Intake Total 6267.8 3133 Output Total 7125 3415 Balance 3382.8 -282 PT 13.5 SEC (12.0-15.0) 09/18/16 22:25 INR 1.04 (0.83-1.16) 09/18/16 22:25 ICD10 Worksheet Patient Problems: Problems Problem Status Diagnosed Acute bronchitis Acute Cardiogenic shock Acute Pneumonia Acute Chest pain Acute Chest wall pain Acute
[2016-09-22 10:21] LABS: BASE EXCESS -3.1 mEq/L (-2.5-2.5); BICARBONATE 22 mEq/L (22-26); MEASURED OXYGEN SATURATION 90 % (92-95); PCO2 40 mmHg (34-38); PO2 66 mmHg (65-75); TCO2 23 mEq/L (23-27)
[2016-09-22 10:22] LABS: O2 CONCENTRATIION 40 % (0-100); P/F RATIO 165 RATIO
[2016-09-22] MEDS: NS 1,000 ML IV SCH (11:17)
[2016-09-22] MEDS: risperiDONE 2 MG TAB PO SCH ×2 (11:43→20:07)
[2016-09-22] MEDS ORDERED: K PHOS 10 MMOL in D5W 250 ML IV ONE (12:00)
[2016-09-22 12:50] LABS: POTASSIUM 3.2 mEq/L (3.5-5.2)
--- NOTE | 2016-09-22 12:55 | SOAPPROG ---
SOAP Progress Note Assessment/Plan: 1. Respiratory distress - Secondary to pneumonia. No evidence of PE on CT angiogram. 2. Hypotension - Secondary to sepsis. Epi and levophed weaned off. Pt remains on vasopressin. 3. 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 --> Continue secondary prevention with asa and plavix. --> Resume metoprolol, losartan, and atorvastatin when appropriate. 4. Elevated troponin - Pt presents with an elevated troponin in the setting of hypotension and respiratory distress. Echocardiogram performed during symptoms demonstrates hyperdynamic systolic function. Suspect secondary to supply demand miss match. Do not suspect ACS. 5. Arrhythmias - Pt with an episode of SVT in setting of dobutamine and is s/p DCCV on 09/19. Telemetry monitoring with sinus tachycardia, frequent PACs, and PAF. Suspect arrhythmias are secondary to acute illness +/- pressor support. --> Resume metoprolol when stable --> Continue to follow. Subjective: Pt intubated and sedate Pressor support has decreased Anticipate vent wean today Objective: Vital Signs Temp Pulse Resp BP Pulse Ox 36.8 C 100 23 H 124/54 H 95 09/22/16 12:00 09/22/16 12:00 09/22/16 12:00 09/22/16 12:00 09/22/16 12:00 Microbiology 09/20/16 11:34 - Final Sputum, Induced/Suctioned Sputum Culture - Final Laboratory Results 09/22/16 05:30 09/22/16 11:35 09/21/16 09/22/16 09/23/16 05:59 05:59 05:59 Intake Total 6267.8 3133 Output Total 2885 3415 Balance 3382.8 -282 PT 13.5 SEC (12.0-15.0) 09/18/16 22:25 INR 1.04 (0.83-1.16) 09/18/16 22:25 Physical Exam - Physical Exam General Appearance: other (sedate) Respiratory: rhonchi Cardiac/Chest: tachycardia Abdomen: normal bowel sounds, soft Skin: normal color Extremities: pedal edema ICD10 Worksheet Patient Problems: Problems Problem Status Diagnosed Acute bronchitis Acute Cardiogenic shock Acute Pneumonia Acute Chest pain Acute Chest wall pain Acute
[2016-09-22] MEDS ORDERED: POTASSIUM Cl (KCl) 20 MEQ/50 ML BAG IV ONE (13:04)
--- NOTE | 2016-09-22 14:12 | HOSPPROG ---
Hospitalist Progress Note Assessment/Plan: 76 yo M w cad, copd admitted w sepsis Acute septic shock- presumed from pulmonary source given cxr. ( tachycardia, leukocytosis, and hypotension at presentation) back on levophed cvp 14 follow acute hypoxic respiratory failure- patient intubated upon arrival - on abx for HCAP no PE on CT failed t piece trial today AF: seen on monitor 12 lead pending hold on systemic anticoag Severe Metabolic acidosis - presumed secondary to lactic acidosis and sepsis - improving hyponatremia: continues to fall elevated uosm (sent before lasix) c/w siadh follow bid no hypertonic at this point coronary artery disease status post LAD stenting 2016- indeterminate troponins 0.1-> 0.21->.118 echo (reviewed) no segmental wall motion abnormalities preserved ejection fraction EKG( personally reviewed and interpreted) improved lateral precordial ST depression - patient on IV heparin - cardiology following macrocytic anemia- abrupt drop in hemoglobin overnight suspect related to aggressive fluid resuscitation with approximately 6 L of normal saline hct has continued to fall suspect 2/2 volume resuscitation but brittney repeat now no signs active bleeding prophylaxis: will discuss full anticoag vs initiation of proph LMWH diet started on JEVITY but held due to high residuals disposition- greater than 2 midnights the patient remains critically ill requiring IV pressors and ventilatory support Subjective: case d/w dr gould. tele: some AF (interp by me) Objective: Vital Signs Temp Pulse Resp BP Pulse Ox 37.1 C 64 20 99/59 L 99 09/22/16 14:00 09/22/16 14:00 09/22/16 14:00 09/22/16 14:00 09/22/16 14:00 Microbiology 09/20/16 11:34 - Final Sputum, Induced/Suctioned Sputum Culture - Final Laboratory Results 09/22/16 05:30 09/22/16 11:35 09/21/16 09/22/16 09/23/16 05:59 05:59 05:59 Intake Total 6267.8 3133 Output Total 2885 3415 Balance 3382.8 -282 PT 13.5 SEC (12.0-15.0) 09/18/16 22:25 INR 1.04 (0.83-1.16) 09/18/16 22:25 - Physical Exam Constitutional: no apparent distress, appears nourished Eyes: PERRL, anicteric sclera Ears, Nose, Mouth, Throat: moist mucous membranes, hearing normal Cardiovascular: regular rate and rhythym, no murmur, rub, or gallop, edema Respiratory: no respiratory distress, rhonchi, No no rales or rhonchi Gastrointestinal: normoactive bowel sounds, soft, non-tender abdomen Genitourinary: li in urethra Skin: warm, normal color Musculoskeletal: full muscle strength, no muscle tenderness Neurologic: AAOx3 Psychiatric: interacting appropriately ICD10 Worksheet Patient Problems: Problems Problem Status Diagnosed Acute bronchitis Acute Cardiogenic shock Acute Pneumonia Acute Chest pain Acute Chest wall pain Acute
[2016-09-22 18:15] LABS: POTASSIUM 3.8 mEq/L (3.5-5.2)
[2016-09-22] MEDS ORDERED: POTASSIUM Cl (KCl) 50 ML IV ONE (19:11)
[2016-09-23] MEDS: VASOPRESSIN/DEXTROSE 250 ML IV SCH (02:36)
[2016-09-23 03:49] LABS: IONIZED CALCIUM 1.04 MMOL/L (1.12-1.30)
[2016-09-23] MEDS ORDERED: CALCIUM GLUCONATE 50 ML IV ONE (03:52)
[2016-09-23 03:59] LABS: ADD DIFF? YES; ADD MORPH? NO; ATYPICAL LYMPHOCYTE FLAG 0 (0-99); FRAGMENT RBC FLAG 0 (0-99); HEMATOCRIT 22.9 % (40.0-51.0); HEMOGLOBIN 8.3 g/dL (13.7-17.5); LIPEMIA HEMOLYSIS FLAG 90 (0-99); MEAN CELL HEMOGLOBIN CONCENTR. 36.2 g/dL (32.4-36.7); MEAN CELL VOLUME 93.9 fL (81.5-99.8); MEAN PLATELET VOLUME 10.8 fL (8.7-11.7); PLATELET CLUMPS FLAG 10 (0-99); PLATELET COUNT 118 10^3/uL (150-400); RED BLOOD CELL COUNT 2.44 10^6/uL (4.40-6.38); RED CELL DISTRIBUTION WIDTH 12.3 % (11.5-15.2)
[2016-09-23 04:05] LABS: ANION GAP 1 mEq/L (8-16); CALCIUM 6.3 mg/dL (8.5-10.4); CARBON DIOXIDE 25 mEq/l (22-31); CHLORIDE 97 mEq/L (97-110); CREATININE 0.8 mg/dL (0.7-1.3); GLOMERULAR FILTRATION RATE > 60; GLUCOSE 92 mg/dL (70-100); POTASSIUM 3.5 mEq/L (3.5-5.2); SODIUM 123 mEq/L (134-144)
[2016-09-23 04:09] LABS: ADD SCAN? NO; LEFT SHIFT FLG 200 (0-99)
[2016-09-23] MEDS: PROPOFOL/EMULSION 100 ML IV SCH ×2 (04:13→20:06)
[2016-09-23] MEDS: POTASSIUM Cl (KCl) 50 ML IV SCH ×7 (04:35→16:43)
[2016-09-23 05:02] LABS: TOXIC GRANULATION PRESENT; TOXIC VACUOLIZATION PRESENT
[2016-09-23 05:03] LABS: GIANT PLATELETS PRESENT; LARGE PLATELETS PRESENT; PLATELET ESTIMATE ADEQUATE (ADEQ)
[2016-09-23] MEDS: CEFEPIME HCL 2 GM in D5W 100 ML IV SCH ×3 (05:25→20:58)
[2016-09-23] MEDS ORDERED: CALCIUM GLUCONATE 2 GM in NS 50 ML IV ONE (08:32)
[2016-09-23] MEDS: ASPIRIN 81 MG CHEWABLE TAB TUBE SCH (09:12)
[2016-09-23] MEDS: CLOPIDOGREL BISULFATE 75 MG TAB TUBE SCH (09:12)
[2016-09-23] MEDS: risperiDONE 2 MG TAB PO SCH ×2 (09:12→20:05)
[2016-09-23] MEDS: ENOXAPARIN 40 MG/0.4 ML SYR SC SCH (09:12)
[2016-09-23] MEDS: FAMOTIDINE 20 MG/NACL 50 ML IV SCH ×2 (09:12→20:05)
--- NOTE | 2016-09-23 09:59 | PDINTPN ---
Poll Clerk Progress Note Assessment/Plan: Assessment: 76 M with known CAD, schizophrenia admitted 09/18 with SOB and hypoxia requiring urgent intubation in ED, followed by hypotension. His BP was treated with levophed and dobutamine and he developed refractory SVT requiring cardioversion. His DDx including septic shock from PNA vs PE so he was treated with Abx and a UFH followed by transfer to ICU. He required multiple pressors to maintain an adequate BP so hydrocortisone added, followed by NICOM-assisted fluid challenges. Early PAP-plateau was >10 so emergent bronch performed without major obstruction (kinked ETT) and minimal but clearly white thickened secretions in LLL. * Septic shock likely 2/2 PNA +/- hypovolemia. PE ruled out by CTA and LE doppler US negative. Currently on A/C at a rate of 16, not overbreathing. No ABG today, ? overventilated. * Respiratory failure with hypoxia: CXR without much change today. * SVT- likely related to dobutamine and resolved once dc'd. EKG today shows ST with frequent PAC's. Would prefer DVT prophylactic heparin versus full doese for ? PAF. * Troponin likely related to hypotension and subendocardial ischemia. Appreciate cards help. * Hyponatremia: Probably excess FW in multiple drips and aggressive fluid resuscitation. Increased today. UOsm 358 yesterday. Vasopressin may be playing small role. * Chronic opiate dependancy. Remains on Fentanyl drip and wakes appropriately. Plan: Continue titrating FiO2 as tolerated. Just turned down to 35%. Decrease sedation and trial of CPAP/T-piece with possible extubation today. Diuresis and fluid restriction. Critical care time 40 minutes 09/23/16 10:50 Subjective: Intubated, sedated, not responding to questions. Objective: Vital Signs Temp Pulse Resp BP Pulse Ox 37.4 C 56 L 16 133/43 H 99 09/23/16 09:00 09/23/16 09:00 09/23/16 09:00 09/23/16 09:00 09/23/16 09:00 Microbiology 09/20/16 11:34 - Final Sputum, Induced/Suctioned Sputum Culture - Final Laboratory Results 09/23/16 03:40 09/23/16 03:40 09/22/16 09/23/16 09/24/16 05:59 05:59 05:59 Intake Total 3133 2976 Output Total 4371 1415 175 Balance -282 1561 -175 PT 13.5 SEC (12.0-15.0) 09/18/16 22:25 INR 1.04 (0.83-1.16) 09/18/16 22:25 Physical Exam - Physical Exam General Appearance: alert, no apparent distress EENT: normal ENT inspection Neck: normal inspection Respiratory: lungs clear, normal breath sounds Cardiac/Chest: regular rate, rhythm, edema Abdomen: normal bowel sounds, non-tender, soft Skin: normal color, warm/dry Extremities: normal inspection Neuro/Psych: No alert, No oriented x 3 ICD10 Worksheet Patient Problems: Problems Problem Status Diagnosed Acute bronchitis Acute Cardiogenic shock Acute Pneumonia Acute Chest pain Acute Chest wall pain Acute
[2016-09-23] MEDS ORDERED: FUROSEMIDE 40 MG/4 ML VIAL IVP ONE (10:31)
--- NOTE | 2016-09-23 11:36 | HOSPPROG ---
Hospitalist Progress Note Assessment/Plan: 76 yo M w cad, copd admitted w sepsis Acute septic shock- presumed from pulmonary source given cxr. ( tachycardia, leukocytosis, and hypotension at presentation) off pressors follow acute hypoxic respiratory failure- patient intubated upon arrival - on abx for HCAP no PE on CT failed t piece trial 09/22 vent wean trial ongoing right now AF: seen on monitor hold on systemic anticoag Severe Metabolic acidosis - presumed secondary to lactic acidosis and sepsis - improving hyponatremia: has stabilized elevated uosm (sent before lasix) c/w siadh follow bid diurese coronary artery disease status post LAD stenting 2015- indeterminate troponins 0.1-> 0.21->.118 echo (reviewed) no segmental wall motion abnormalities preserved ejection fraction EKG( personally reviewed and interpreted) improved lateral precordial ST depression - patient on IV heparin - cardiology following macrocytic anemia- abrupt drop in hemoglobin overnight suspect related to aggressive fluid resuscitation with approximately 6 L of normal saline hct has continued to fall suspect 2/2 volume resuscitation but brittney repeat now no signs active bleeding prophylaxis: will discuss full anticoag vs initiation of proph LMWH diet started on JEVITY but held due to high residuals disposition- greater than 2 midnights the patient remains critically ill requiring IV pressors and ventilatory support Subjective: on vent wean. case d/w dr russo. excellent response to AM lasix today. tele: 3 beats NSVT at 11 AM (interp by me) Objective: Vital Signs Temp Pulse Resp BP Pulse Ox 37.0 C 95 2 L 136/60 H 93 09/23/16 11:00 09/23/16 11:00 09/23/16 11:00 09/23/16 11:00 09/23/16 11:00 Microbiology 09/20/16 11:34 - Final Sputum, Induced/Suctioned Sputum Culture - Final Laboratory Results 09/23/16 03:40 09/23/16 03:40 09/22/16 09/23/16 09/24/16 05:59 05:59 05:59 Intake Total 3133 2976 Output Total 3415 1415 550 Balance -282 1561 -550 PT 13.5 SEC (12.0-15.0) 09/18/16 22:25 INR 1.04 (0.83-1.16) 09/18/16 22:25 - Physical Exam Constitutional: other (intubated, sedated) Eyes: PERRL Ears, Nose, Mouth, Throat: moist mucous membranes, hearing normal Cardiovascular: regular rate and rhythym, no murmur, rub, or gallop Respiratory: no respiratory distress, no rales or rhonchi Gastrointestinal: normoactive bowel sounds, soft, non-tender abdomen Genitourinary: li in urethra, No no bladder fullness Skin: warm, normal color Musculoskeletal: full muscle strength, no muscle tenderness Neurologic: AAOx3, other (sedated) ICD10 Worksheet Patient Problems: Problems Problem Status Diagnosed Acute bronchitis Acute Cardiogenic shock Acute Pneumonia Acute Chest pain Acute Chest wall pain Acute
[2016-09-23] MEDS ORDERED: K PHOS 20 MMOL in D5W 250 ML IV ONE (12:00)
[2016-09-23] MEDS ORDERED: K PHOS 15 MMOL in D5W 250 ML IV ONE (12:00)
[2016-09-23] MEDS: fentaNYL/NACL 100 ML IV SCH (13:42)
--- NOTE | 2016-09-23 14:07 | PDCARPN ---
Cardiology Progress Note Assessment/Plan: Respiratory distress - Secondary to pneumonia. No evidence of PE on CT angiogram. Hypotension - Secondary to sepsis. Epi and levophed weaned off. Pt remains on vasopressin. 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 Continue secondary prevention with asa and plavix. Resume metoprolol, losartan, and atorvastatin when appropriate. Elevated troponin - in the setting of hypotension and respiratory distress. Echocardiogram performed during symptoms demonstrated hyperdynamic systolic function without regional all motion abnormalities. Likely secondary to myocardial O2 supply/demand mismatch. Do not suspect ACS. Arrhythmias - Had an episode of SVT early in hospital course while on IV beta adrenergic pressor agents. Underwent cardioversion on 09/19. Telemetry has demonstrated sinus tachycardia, PACs, PVCs, and PAF. Suspect arrhythmias are secondary to acute illness +/- pressor support. Resume metoprolol when stable 09/23/16 13:56 Subjective: Intubated and sedated. Objective: Vital Signs (8 Hrs) Temp Pulse Resp BP Pulse Ox 09/23/16 13:00 37.2 C 93 29 H 160/55 H 94 09/23/16 12:35 100 30 H 94 09/23/16 12:25 101 H 94 09/23/16 12:00 37.1 C 100 32 H 158/57 H 94 09/23/16 11:30 107 H 92 09/23/16 11:00 37.0 C 95 2 L 136/60 H 93 09/23/16 09:59 37.4 C 73 12 107/43 L 96 09/23/16 09:00 37.4 C 56 L 16 133/43 H 99 09/23/16 08:20 71 19 98 09/23/16 08:00 37.3 C 66 20 135/51 H 98 09/23/16 07:00 37.3 C 73 24 H 131/44 H 98 09/23/16 06:00 37.5 C 53 L 16 118/53 L 100 Intake/Output (24 Hrs) 09/22/16 09/23/16 09/24/16 05:59 05:59 05:59 Intake Total 3133 2976 Output Total 6190 1415 1800 Balance -282 1561 -1800 Intake: IV Intake (ml) 1233 IV Infused (ml) 3133 1713 Vasopressin/Dextrose 250 484 404 ml @ 24 mls/hr IV CONT NEEL Rx#:[id number] fentaNYL/NACL 100 ml @ As 141 86 Directed IV CONT NEEL Rx# :[id number] Ns 1,000 ml @ 100 mls/hr 2322 1075 IV CONT NEEL Rx#: [id number] Propofol/Emulsion 100 ml 186 148 @ Titrate IV CONT NEEL Rx# :[id number] Tube Feeding (ml) 0 Tube Flush (ml) 30 Output: Urine (ml) 3015 1265 1800 Catheter 3015 1265 1800 OG Drainage (ml) 400 150 Large Bore (>12 Divehi) 400 150 Non-weighted Oral Other: Weight 101.1 kg 106.8 kg Output Comment Catheter post lasix admin Number of Stools Catheter 2 1 Number of Emesis 1 Occurrences Result Diagrams: 09/23/16 03:40 09/23/16 03:40 - Physical Exam Constitutional: obese Eyes: anicteric sclera Ears, Nose, Mouth, Throat: moist mucous membranes Cardiovascular: regular rate and rhythm, no murmurs Respiratory: clear to auscultate bilat (anteriorly) Gastrointestinal: normoactive bowel sounds, no masses Skin: no rashes, no edema Neurologic: other (intubated and sedated) ICD10 Worksheet Patient Problems: Problems Problem Status Diagnosed Acute bronchitis Acute Cardiogenic shock Acute Pneumonia Acute Chest pain Acute Chest wall pain Acute
[2016-09-23 14:43] LABS: ANION GAP 7 mEq/L (8-16); CALCIUM 7.6 mg/dL (8.5-10.4); CARBON DIOXIDE 24 mEq/l (22-31); CHLORIDE 96 mEq/L (97-110); CREATININE 0.9 mg/dL (0.7-1.3); GLOMERULAR FILTRATION RATE > 60; GLUCOSE 97 mg/dL (70-100); POTASSIUM 3.6 mEq/L (3.5-5.2); SODIUM 127 mEq/L (134-144)
[2016-09-23] MEDS: VANCOMYCIN 1.25 GM in D5W 250 ML IV SCH (18:41)
[2016-09-23] MEDS ORDERED: FUROSEMIDE 20 MG/2 ML VIAL IVP ONE (22:00)
[2016-09-24 03:15] LABS: IONIZED CALCIUM 1.19 MMOL/L (1.12-1.30)
[2016-09-24 03:25] LABS: ABSOLUTE NRBC COUNT 0.04 10^3/uL (0-0.01); ADD DIFF? YES; ADD MORPH? NO; ATYPICAL LYMPHOCYTE FLAG 20 (0-99); FRAGMENT RBC FLAG 0 (0-99); HEMATOCRIT 27.6 % (40.0-51.0); HEMOGLOBIN 9.8 g/dL (13.7-17.5); LIPEMIA HEMOLYSIS FLAG 90 (0-99); MEAN CELL HEMOGLOBIN 33.4 pg (27.9-34.1); MEAN CELL HEMOGLOBIN CONCENTR. 35.5 g/dL (32.4-36.7); MEAN CELL VOLUME 94.2 fL (81.5-99.8); MEAN PLATELET VOLUME 10.7 fL (8.7-11.7); NRBC-AUTO% 0.2 % (0.0-0.2); PLATELET CLUMPS FLAG 0 (0-99); PLATELET COUNT 167 10^3/uL (150-400); RED BLOOD CELL COUNT 2.93 10^6/uL (4.40-6.38); RED CELL DISTRIBUTION WIDTH 12.6 % (11.5-15.2)
[2016-09-24 03:26] LABS: ADD SCAN? NO; LEFT SHIFT FLG 190 (0-99)
[2016-09-24 03:42] LABS: ANION GAP 7 mEq/L (8-16); CALCIUM 7.7 mg/dL (8.5-10.4); CARBON DIOXIDE 29 mEq/l (22-31); CHLORIDE 105 mEq/L (97-110); GLOMERULAR FILTRATION RATE > 60; GLUCOSE 86 mg/dL (70-100); MAGNESIUM 2.1 mg/dL (1.6-2.3); POTASSIUM 3.1 mEq/L (3.5-5.2); SODIUM 141 mEq/L (134-144)
[2016-09-24] MEDS: PROPOFOL/EMULSION 100 ML IV SCH (03:55)
[2016-09-24] MEDS: POTASSIUM Cl (KCl) 50 ML IV SCH ×2 (03:55→04:44)
[2016-09-24 04:03] LABS: PLATELET ESTIMATE ADEQUATE (ADEQ)
[2016-09-24 04:05] LABS: GIANT PLATELETS PRESENT; LARGE PLATELETS PRESENT; TOXIC GRANULATION PRESENT
[2016-09-24] MEDS: CEFEPIME HCL 2 GM in D5W 100 ML IV SCH ×3 (05:18→21:27)
[2016-09-24] MEDS: risperiDONE 2 MG TAB PO SCH ×2 (09:34→20:07)
[2016-09-24] MEDS: ASPIRIN 81 MG CHEWABLE TAB TUBE SCH (09:34)
[2016-09-24] MEDS: ENOXAPARIN 40 MG/0.4 ML SYR SC SCH (09:34)
[2016-09-24] MEDS: CLOPIDOGREL BISULFATE 75 MG TAB TUBE SCH (09:34)
[2016-09-24] MEDS: FAMOTIDINE 20 MG/NACL 50 ML IV SCH ×2 (09:35→21:23)
--- NOTE | 2016-09-24 10:07 | HOSPPROG ---
Hospitalist Progress Note Assessment/Plan: 76 yo M w cad, copd admitted w sepsis Acute septic shock- presumed from pulmonary source given cxr. ( tachycardia, leukocytosis, and hypotension at presentation) off pressors follow acute hypoxic respiratory failure- patient intubated upon arrival - on abx for HCAP no PE on CT suspect vent wean will improve diuresis NSVT: will d/w cardiology AF: seen on monitor hold on systemic anticoag Severe Metabolic acidosis - presumed secondary to lactic acidosis and sepsis - improving hyponatremia: significant improvement w diuresis hold on further diuresis coronary artery disease status post LAD stenting 2016- indeterminate troponins 0.1-> 0.21->.118 echo (reviewed) no segmental wall motion abnormalities preserved ejection fraction EKG( personally reviewed and interpreted) improved lateral precordial ST depression - patient on IV heparin - cardiology following macrocytic anemia- abrupt drop in hemoglobin overnight suspect related to aggressive fluid resuscitation with approximately 6 L of normal saline hct has continued to fall suspect 2/2 volume resuscitation but brittney repeat now no signs active bleeding prophylaxis: will discuss full anticoag vs initiation of proph LMWH diet started on JEVITY but held due to high residuals disposition- greater than 2 midnights the patient remains critically ill requiring IV pressors and ventilatory support Subjective: massive diuresis yesterday. case d/w Dr Barrera. tele: 3 beats NSVT (interp by me) Objective: Vital Signs Temp Pulse Resp BP Pulse Ox 37.1 C 76 26 H 121/45 H 96 09/24/16 09:00 09/24/16 09:00 09/24/16 09:00 09/24/16 09:00 09/24/16 09:00 Microbiology 09/18/16 23:16 Blood Culture - Final Blood Laboratory Results 09/24/16 03:00 09/24/16 03:00 09/23/16 09/24/16 09/25/16 05:59 05:59 05:59 Intake Total 2976 1384.9 Output Total 1415 9760 325 Balance 1561 -8375.1 -325 PT 13.5 SEC (12.0-15.0) 09/18/16 22:25 INR 1.04 (0.83-1.16) 09/18/16 22:25 - Physical Exam Constitutional: other (intubated, sedated) Eyes: PERRL, anicteric sclera Ears, Nose, Mouth, Throat: moist mucous membranes, hearing normal, ears appear normal Cardiovascular: regular rate and rhythym, no murmur, rub, or gallop, edema Respiratory: other (rhoncorous anterolat) Gastrointestinal: normoactive bowel sounds, soft, non-tender abdomen Genitourinary: li in urethra, No no bladder fullness Skin: warm, normal color Musculoskeletal: full muscle strength, no muscle tenderness Neurologic: other (intubated, sedated) Psychiatric: No interacting appropriately Lymph, Heme, Immunologic: no cervical LAD ICD10 Worksheet Patient Problems: Problems Problem Status Diagnosed Acute bronchitis Acute Cardiogenic shock Acute Pneumonia Acute Chest pain Acute Chest wall pain Acute
--- NOTE | 2016-09-24 10:38 | DX ---
Portable Chest , 1023 a.m. History: Respiratory failure Comparison: September 21 Findings: Dense left lower lobe consolidation and blunting of the left costophrenic gutter remains. T here is progressive consolidation at the right , with subtle grayness in the costophrenic angle. ET t ube, right subclavian catheter and NG tube remain in place in good position. Impression: 1. Persistent left lower lobe consolidation without air bronchograms. 2. Progressive right lower lung zone consolidation.
[2016-09-24] MEDS ORDERED: ACETAMINOPHEN 325 MG TAB PO PRN (10:54)
[2016-09-24] MEDS ORDERED: IBUPROFEN 200 MG TAB PO PRN (10:55)
--- NOTE | 2016-09-24 10:59 | PDINTPN ---
Facility Planner Progress Note Assessment/Plan: Assessment: 76 M with known CAD, schizophrenia admitted 09/18 with SOB and hypoxia requiring urgent intubation in ED, followed by hypotension. His BP was treated with levophed and dobutamine and he developed refractory SVT requiring cardioversion. His DDx including septic shock from PNA vs PE so he was treated with Abx and a UFH followed by transfer to ICU. He required multiple pressors to maintain an adequate BP so hydrocortisone added, followed by NICOM-assisted fluid challenges. Early PAP-plateau was >10 so emergent bronch performed without major obstruction (kinked ETT) and minimal but clearly white thickened secretions in LLL. * Septic shock likely 2/2 PNA +/- hypovolemia. PE ruled out by CTA and LE doppler US negative. * Respiratory Failure: Currently on IMV at a rate of 12, not overbreathing. * Respiratory failure with hypoxia: CXR without much change today. * SVT- likely related to dobutamine and resolved once dc'd. Would prefer DVT prophylactic heparin versus full dose for ? PAF. * Troponin likely related to hypotension and subendocardial ischemia. Appreciate cards help. * Hyponatremia: Probably excess FW in multiple drips and aggressive fluid resuscitation. Normalized today with large-volume diuresis. * Chronic opiate dependancy. Remains on Fentanyl drip and wakes appropriately. Plan: Continue titrating FiO2 as tolerated. Now that he's diuresed, will try weaning to CPAP again. Decrease sedation and trial of CPAP/T-piece with possible extubation today. Follow fluid balance closely. Critical care time 35 minutes 09/24/16 11:02 Subjective: Intubated, sedated. C/OP pain when awakened. Objective: Vital Signs Temp Pulse Resp BP Pulse Ox 37.1 C 76 26 H 121/45 H 96 09/24/16 09:00 09/24/16 09:00 09/24/16 09:00 09/24/16 09:00 09/24/16 09:00 Microbiology 09/18/16 23:16 Blood Culture - Final Blood Laboratory Results 09/24/16 03:00 09/24/16 03:00 09/23/16 09/24/16 09/25/16 05:59 05:59 05:59 Intake Total 2976 1384.9 Output Total 1415 9760 325 Balance 1561 -8375.1 -325 PT 13.5 SEC (12.0-15.0) 09/18/16 22:25 INR 1.04 (0.83-1.16) 09/18/16 22:25 CXR: Basilar opacities. Possible effusions. Images reviewed. Physical Exam - Physical Exam General Appearance: no apparent distress, No alert EENT: normal ENT inspection Neck: normal inspection Respiratory: lungs clear, normal breath sounds Cardiac/Chest: regular rate, rhythm, edema (1+) Abdomen: normal bowel sounds, non-tender, soft Skin: normal color, warm/dry Extremities: normal inspection Neuro/Psych: alert, normal mood/affect, oriented x 3 ICD10 Worksheet Patient Problems: Problems Problem Status Diagnosed Acute bronchitis Acute Cardiogenic shock Acute Pneumonia Acute Chest pain Acute Chest wall pain Acute
[2016-09-24] MEDS ORDERED: IBUPROFEN 20 MG/ML TUBE PRN (11:22)
[2016-09-24] MEDS ORDERED: K PHOS 10 MMOL in D5W 250 ML IV ONE (12:00)
[2016-09-24 12:34] LABS: POTASSIUM 3.7 mEq/L (3.5-5.2)
[2016-09-24] MEDS ORDERED: POTASSIUM Cl (KCl) 50 ML IV ONE ×2 (14:07→18:52)
[2016-09-24] MEDS: fentaNYL/NACL 100 ML IV SCH (17:35)
[2016-09-24 18:14] LABS: POTASSIUM 3.7 mEq/L (3.5-5.2)
--- NOTE | 2016-09-24 20:44 | PDCARPN ---
Cardiology Progress Note Assessment/Plan: Respiratory distress - Secondary to pneumonia. No evidence of PE on CT angiogram. Had two CPAP weaning trials today. Hypotension - Secondary to sepsis. All pressors now off. BP elevated after recent weaning trial. Borderline low BP earlier today. 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 Continue secondary prevention with asa and plavix. Resume metoprolol, losartan, and atorvastatin when appropriate. Elevated troponin - in the setting of hypotension and respiratory distress. Echocardiogram performed during symptoms demonstrated hyperdynamic systolic function without regional all motion abnormalities. Likely secondary to myocardial O2 supply/demand mismatch. Do not suspect ACS. Arrhythmias - Had an episode of SVT early in hospital course while on IV beta adrenergic pressor agents. Underwent cardioversion on 09/19. Telemetry has demonstrated sinus tachycardia, PACs, PVCs, and PAF. Suspect arrhythmias are secondary to acute illness +/- pressor support. Had a 3 beat run of nonsustained VT early this a.m. Will institute IV amiodarone if arrhythmias become more problematic. Resume metoprolol when able 09/24/16 20:39 Subjective: Intubated and sedated. Objective: Vital Signs (8 Hrs) Temp Pulse Resp BP Pulse Ox 09/24/16 20:00 37.3 C 97 26 H 150/90 H 94 09/24/16 19:58 85 21 H 97 09/24/16 19:00 37.2 C 82 23 H 99/41 L 97 09/24/16 18:00 37.3 C 89 23 H 121/51 H 93 09/24/16 17:33 37.1 C 102 H 29 H 157/62 H 94 09/24/16 17:00 37.1 C 106 H 28 H 167/75 H 91 L 09/24/16 16:30 94 24 H 98 09/24/16 16:00 37 C 72 17 132/52 H 100 09/24/16 14:00 36.9 C 91 22 H 142/48 H 94 09/24/16 13:00 36.9 C 90 22 H 105/43 L 94 Intake/Output (24 Hrs) 09/23/16 09/24/16 09/25/16 05:59 05:59 05:59 Intake Total 2976 1384.9 794.0 Output Total 1415 9760 1225 Balance 1561 -8375.1 -431.0 Intake: IV Intake (ml) 1233 581 660 IV Infused (ml) 1713 553.9 134.0 Vasopressin/Dextrose 250 404 126 ml @ 24 mls/hr IV CONT [facility] Rx#:[id number] fentaNYL/NACL 100 ml @ As 86 103.1 51.2 Directed IV CONT [facility] Rx# :[id number] Ns 1,000 ml @ 100 mls/hr 1075 56 IV CONT [facility] Rx#: [id number] Propofol/Emulsion 100 ml 148 168.8 82.8 @ Titrate IV CONT [facility] Rx# :[id number] Famotidine 20 mg/NaCl 50 50 ml @ 200 mls/hr IV Q12 [facility] Rx#:[id number] Calcium Gluconate 2 gm In 50 Ns 50 ml @ 140 mls/hr IV ONCE ONE Rx#:[id number] Tube Feeding (ml) 0 Tube Flush (ml) 30 250 Output: Urine (ml) 1265 9510 1025 Catheter 1265 9510 1025 OG Drainage (ml) 150 250 200 Large Bore (>12 [place]) 150 250 200 Non-weighted Oral Other: Weight 106.8 kg 97.8 kg Output Comment Catheter post lasix admin Number of Stools Catheter 1 0 Incontinence 1 Result Diagrams: 09/24/16 03:00 09/24/16 17:40 - Physical Exam Constitutional: other (Intubated and sedated.) Eyes: anicteric sclera Ears, Nose, Mouth, Throat: moist mucous membranes Cardiovascular: regular rate and rhythm, no murmurs, no rubs, no gallops Respiratory: clear to auscultate bilat (anteriorly) Gastrointestinal: normoactive bowel sounds, no masses Skin: no rashes, other (generalized edema) Neurologic: other (intubated and sedated) ICD10 Worksheet Patient Problems: Problems Problem Status Diagnosed Acute bronchitis Acute Cardiogenic shock Acute Pneumonia Acute Chest pain Acute Chest wall pain Acute
[2016-09-25] MEDS: PROPOFOL/EMULSION 100 ML IV SCH ×3 (00:28→21:51)
[2016-09-25 01:08] LABS: POTASSIUM 3.6 mEq/L (3.5-5.2)
[2016-09-25] MEDS ORDERED: POTASSIUM Cl (KCl) 10 MEQ/50 ML BAG IV ONE (03:19)
[2016-09-25] MEDS: POTASSIUM Cl (KCl) 50 ML IV SCH ×3 (03:40→04:30)
[2016-09-25 04:44] LABS: BASE EXCESS 0.2 mEq/L (-2.5-2.5); BICARBONATE 25 mEq/L (22-26); MEASURED OXYGEN SATURATION 91 % (92-95); PCO2 42 mmHg (34-38); PO2 63 mmHg (65-75); TCO2 26 mEq/L (23-27)
[2016-09-25 04:49] LABS: CPAP YES; PATIENT RATE 30; PRESSURE SUPPORT 7
[2016-09-25 04:50] LABS: IONIZED CALCIUM 1.17 MMOL/L (1.12-1.30)
[2016-09-25] MEDS: CEFEPIME HCL 2 GM in D5W 100 ML IV SCH ×3 (05:43→21:51)
[2016-09-25 05:47] LABS: ABSOLUTE NRBC COUNT 0.05 10^3/uL (0-0.01); ADD DIFF? YES; ADD MORPH? NO; ATYPICAL LYMPHOCYTE FLAG 40 (0-99); FRAGMENT RBC FLAG 0 (0-99); HEMATOCRIT 26.4 % (40.0-51.0); LIPEMIA HEMOLYSIS FLAG 90 (0-99); MEAN CELL HEMOGLOBIN 33.1 pg (27.9-34.1); MEAN CELL HEMOGLOBIN CONCENTR. 34.1 g/dL (32.4-36.7); MEAN CELL VOLUME 97.1 fL (81.5-99.8); MEAN PLATELET VOLUME 10.5 fL (8.7-11.7); NRBC-AUTO% 0.2 % (0.0-0.2); PLATELET CLUMPS FLAG 0 (0-99); PLATELET COUNT 192 10^3/uL (150-400); RED BLOOD CELL COUNT 2.72 10^6/uL (4.40-6.38)
[2016-09-25 05:48] LABS: LEFT SHIFT FLG 170 (0-99)
[2016-09-25 05:49] LABS: ADD SCAN? NO
[2016-09-25 06:12] LABS: ANION GAP 2 mEq/L (8-16); CALCIUM 7.5 mg/dL (8.5-10.4); CARBON DIOXIDE 27 mEq/l (22-31); CHLORIDE 109 mEq/L (97-110); CREATININE 0.8 mg/dL (0.7-1.3); GLOMERULAR FILTRATION RATE > 60; GLUCOSE 77 mg/dL (70-100); POTASSIUM 4.2 mEq/L (3.5-5.2); SODIUM 138 mEq/L (134-144)
[2016-09-25 06:15] LABS: PLATELET ESTIMATE ADEQUATE (ADEQ); POLYCHROMASIA 1+; TOXIC GRANULATION PRESENT
[2016-09-25 06:16] LABS: GIANT PLATELETS PRESENT; LARGE PLATELETS PRESENT
[2016-09-25] MEDS: ASPIRIN 81 MG CHEWABLE TAB TUBE SCH (08:07)
[2016-09-25] MEDS: FAMOTIDINE 20 MG/NACL 50 ML IV SCH ×2 (08:07→20:55)
[2016-09-25] MEDS: CLOPIDOGREL BISULFATE 75 MG TAB TUBE SCH (08:07)
[2016-09-25] MEDS: ENOXAPARIN 40 MG/0.4 ML SYR SC SCH (08:07)
[2016-09-25] MEDS: risperiDONE 2 MG TAB PO SCH ×2 (08:08→20:59)
--- NOTE | 2016-09-25 08:53 | HOSPPROG ---
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 Appreciate cards consultation -cath today -ASA, Plavix. BB, statin, Losartan when more clinically stable #PNA: -resp/blood cx NGTD #Leukocytosis: WBC 20. Cont abx #Anasarca -Lasix/albumin today #Hypothyroidism #Acute hypoxemic resp failure -due to PNA, volume overload. Wean as tolerated #Chronic pain MS Contin 15 BID at home. Denies pain currently. Wean off Fentanyl as tolerated #SVT: currently HR 80s #Diet: Hypoactive BS today. AXR okay. Restart tube feeds #DVT ppx: LMWH #Disp: warrants ICU admission for acute hypoxia, cath today Subjective: cath today Objective: Vital Signs Temp Pulse Resp BP Pulse Ox 37.0 C 90 30 H 167/61 H 95 09/25/16 08:00 09/25/16 08:06 09/25/16 08:06 09/25/16 08:00 09/25/16 08:06 Microbiology 09/18/16 23:16 Blood Culture - Final Blood Laboratory Results 09/25/16 05:40 09/25/16 05:40 09/24/16 09/25/16 09/26/16 05:59 05:59 05:59 Intake Total 1384.9 1677.8 200 Output Total 9760 2275 100 Balance -8375.1 -597.2 100 PT 13.5 SEC (12.0-15.0) 09/18/16 22:25 INR 1.04 (0.83-1.16) 09/18/16 22:25 - Physical Exam Constitutional: no apparent distress, other (sedated) Eyes: PERRL Ears, Nose, Mouth, Throat: moist mucous membranes, other (ET in place) Cardiovascular: regular rate and rhythym, no murmur, rub, or gallop, edema ( anasarca UEs/LEs) Respiratory: no respiratory distress, rhonchi Gastrointestinal: other (hypoactive bowel sounds) Genitourinary: li in urethra Skin: warm Neurologic: other (sedated) Psychiatric: other (sedated) ICD10 Worksheet Patient Problems: Problems Problem Status Diagnosed Acute bronchitis Acute Cardiogenic shock Acute Pneumonia Acute Chest pain Acute Chest wall pain Acute
[2016-09-25] MEDS ORDERED: ALBUMIN 25% 200 ML IV ONE (10:04)
[2016-09-25] MEDS ORDERED: FUROSEMIDE 20 MG/2 ML VIAL IVP ONE (10:04)
--- NOTE | 2016-09-25 10:44 | PDINTPN ---
Safety Manager Progress Note Assessment/Plan: Assessment: 76 M with known CAD, schizophrenia admitted 09/18 with SOB and hypoxia requiring urgent intubation in ED, followed by hypotension. His BP was treated with levophed and dobutamine and he developed refractory SVT requiring cardioversion. His DDx including septic shock from PNA vs PE so he was treated with Abx and a UFH followed by transfer to ICU. He required multiple pressors to maintain an adequate BP so hydrocortisone added, followed by NICOM-assisted fluid challenges. Early PAP-plateau was >10 so emergent bronch performed without major obstruction (kinked ETT) and minimal but clearly white thickened secretions in LLL. * Septic shock likely 2/2 PNA +/- hypovolemia. PE ruled out by CTA and LE doppler US negative. Resolved. * Respiratory Failure: Currently on IMV at a rate of 12. Tolerated CPAP this morning for about an hour before becoming tachypneic. CXR with basilar * SVT- likely related to dobutamine and resolved once dc'd. Would prefer DVT prophylactic heparin versus full dose for ? PAF. * Troponin likely related to hypotension and subendocardial ischemia. Appreciate cards help. * Hyponatremia: Probably excess FW in multiple drips and aggressive fluid resuscitation. Normalized with large-volume diuresis. * Chronic opiate dependancy. Remains on Fentanyl drip and wakes appropriately. * Nutrition: None for 4 days. BS quiet. Plan: Continue titrating FiO2 as tolerated. Try CPAP again today after lasix/albumin and reduction in Fentanyl. Follow fluid balance closely. Check abdominal x-ray, then will probably restart TF. D/W hospitalist, RN, RT Critical care time 40 minutes 09/25/16 10:45 Subjective: Intubated, sedated Objective: Vital Signs Temp Pulse Resp BP Pulse Ox 37.1 C 76 22 H 127/51 H 96 09/25/16 10:00 09/25/16 10:00 09/25/16 10:00 09/25/16 10:09/25/16 10:00 Microbiology 09/18/16 23:16 Blood Culture - Final Blood Laboratory Results 09/25/16 05:40 09/25/16 05:40 09/24/16 09/25/16 09/26/16 05:59 05:59 05:59 Intake Total 1384.9 1677.8 200 Output Total 9760 2275 210 Balance -8375.1 -597.2 -10 PT 13.5 SEC (12.0-15.0) 09/18/16 22:25 INR 1.04 (0.83-1.16) 09/18/16 22:25 Physical Exam - Physical Exam General Appearance: alert, no apparent distress EENT: normal ENT inspection Neck: normal inspection Respiratory: lungs clear, normal breath sounds Cardiac/Chest: regular rate, rhythm, No edema Abdomen: non-tender, No normal bowel sounds (diminished) Skin: normal color, warm/dry Extremities: normal inspection Neuro/Psych: alert, normal mood/affect, oriented x 3 ICD10 Worksheet Patient Problems: Problems Problem Status Diagnosed Acute bronchitis Acute Cardiogenic shock Acute Pneumonia Acute Chest pain Acute Chest wall pain Acute
--- NOTE | 2016-09-25 11:11 | DX ---
Abdomen Single View 10:34 a.m. Indication: Distention. Evaluate for ileus. Comparison: Portable chest performed 1 day prior. Findings: Esophagogastric tube is present with the tip near the esophagogastric junction and the side port in the distal esophagus. A central venous line in the superior vena cava is unchanged in positio n. Cardiomegaly and left basilar consolidation are unchanged. Minimal improved interstitial edema. Bowel pattern is within normal limit. No dilated loops of small or large bowel. Impression: 1. No evidence of obstruction or adynamic ileus. 2. Esophagogastric tube in distal esophagus with tip near the EG junction. 3. Persistent left basilar consolidation. Improved edema.
[2016-09-25] MEDS ORDERED: ONDANSETRON 4 MG/2 ML VIAL IVP PRN (12:12)
[2016-09-25] MEDS ORDERED: OXYCODONE/APAP 5/325 TAB PO PRN (12:12)
[2016-09-25] MEDS ORDERED: HYDROCODONE/APAP 5/325 TAB PO PRN (12:12)
[2016-09-25] MEDS ORDERED: ATROPINE SULFATE 1 MG/10 ML SYR IVP PRN (12:12)
[2016-09-25] MEDS ORDERED: NITROGLYCERIN 0.4 MG BTL SL PRN (12:12)
[2016-09-25 12:14] LABS: POTASSIUM 3.7 mEq/L (3.5-5.2)
[2016-09-25] MEDS ORDERED: POTASSIUM Cl (KCl) 50 ML IV ONE ×2 (12:44→19:45)
[2016-09-25 18:17] LABS: POTASSIUM 3.8 mEq/L (3.5-5.2)
[2016-09-26 02:15] LABS: POTASSIUM 3.9 mEq/L (3.5-5.2)
[2016-09-26] MEDS ORDERED: POTASSIUM Cl (KCl) 50 ML IV ONE (02:27)
[2016-09-26] MEDS ORDERED: POTASSIUM Cl (KCl) 20 MEQ/50 ML BAG IV ONE (02:37)
[2016-09-26 04:19] LABS: ABSOLUTE NRBC COUNT 0.03 10^3/uL (0-0.01); ADD DIFF? YES; ADD MORPH? NO; ATYPICAL LYMPHOCYTE FLAG 30 (0-99); FRAGMENT RBC FLAG 0 (0-99); HEMOGLOBIN 9.3 g/dL (13.7-17.5); LIPEMIA HEMOLYSIS FLAG 90 (0-99); MEAN CELL HEMOGLOBIN 33.6 pg (27.9-34.1); MEAN CELL HEMOGLOBIN CONCENTR. 34.4 g/dL (32.4-36.7); MEAN CELL VOLUME 97.5 fL (81.5-99.8); MEAN PLATELET VOLUME 10.3 fL (8.7-11.7); NRBC-AUTO% 0.1 % (0.0-0.2); PLATELET CLUMPS FLAG 50 (0-99); PLATELET COUNT 225 10^3/uL (150-400); RED BLOOD CELL COUNT 2.77 10^6/uL (4.40-6.38)
[2016-09-26 04:23] LABS: ADD SCAN? NO; LEFT SHIFT FLG 160 (0-99)
[2016-09-26 04:28] LABS: ANION GAP 7 mEq/L (8-16); CALCIUM 7.9 mg/dL (8.5-10.4); CARBON DIOXIDE 27 mEq/l (22-31); CHLORIDE 107 mEq/L (97-110); CREATININE 0.8 mg/dL (0.7-1.3); GLOMERULAR FILTRATION RATE > 60; GLUCOSE 90 mg/dL (70-100); MAGNESIUM 1.9 mg/dL (1.6-2.3); POTASSIUM 4.2 mEq/L (3.5-5.2); SODIUM 141 mEq/L (134-144)
[2016-09-26 04:41] LABS: BASE EXCESS 1.5 mEq/L (-2.5-2.5); BICARBONATE 26 mEq/L (22-26); MEASURED OXYGEN SATURATION 92 % (92-95); PCO2 44 mmHg (34-38); PO2 65 mmHg (65-75); TCO2 28 mEq/L (23-27)
[2016-09-26 04:43] LABS: CPAP YES; END TIDAL CO2 29; O2 CONCENTRATIION 35 % (0-100); P/F RATIO 186 RATIO; PATIENT RATE 36; PRESSURE SUPPORT 7
[2016-09-26 04:44] LABS: IONIZED CALCIUM 1.18 MMOL/L (1.12-1.30)
[2016-09-26] MEDS: PROPOFOL/EMULSION 100 ML IV SCH ×3 (04:57→19:11)
[2016-09-26 04:59] LABS: GIANT PLATELETS PRESENT; LARGE PLATELETS PRESENT; POLYCHROMASIA 1+; TOXIC GRANULATION PRESENT
[2016-09-26 05:00] LABS: PLATELET ESTIMATE ADEQUATE (ADEQ)
[2016-09-26] MEDS: CEFEPIME HCL 2 GM in D5W 100 ML IV SCH ×2 (05:01→14:11)
[2016-09-26] MEDS: FAMOTIDINE 20 MG/NACL 50 ML IV SCH ×2 (08:25→20:25)
[2016-09-26] MEDS: ASPIRIN 81 MG CHEWABLE TAB TUBE SCH (08:36)
[2016-09-26] MEDS: ENOXAPARIN 40 MG/0.4 ML SYR SC SCH (08:36)
[2016-09-26] MEDS: risperiDONE 2 MG TAB PO SCH ×2 (08:37→20:25)
[2016-09-26] MEDS: CLOPIDOGREL BISULFATE 75 MG TAB TUBE SCH (08:37)
[2016-09-26] MEDS ORDERED: FUROSEMIDE 40 MG/4 ML VIAL IVP ONE (10:55)
[2016-09-26] MEDS ORDERED: ALBUMIN 25% 200 ML IV ONE (10:55)
--- NOTE | 2016-09-26 11:04 | PDINTPN ---
Sales Training Manager Progress Note Assessment/Plan: Assessment: 76 M with known CAD, schizophrenia admitted 09/18 with SOB and hypoxia requiring urgent intubation in ED, followed by hypotension. His BP was treated with levophed and dobutamine and he developed refractory SVT requiring cardioversion. His DDx including septic shock from PNA vs PE so he was treated with Abx and a UFH followed by transfer to ICU. He required multiple pressors to maintain an adequate BP so hydrocortisone added, followed by NICOM-assisted fluid challenges. Early PAP-plateau was >10 so emergent bronch performed without major obstruction (kinked ETT) and minimal but clearly white thickened secretions in LLL. * Septic shock likely 2/2 PNA +/- hypovolemia. PE ruled out by CTA and LE doppler US negative. Resolved. * Respiratory Failure: Tolerated CPAP this morning, but now tachypneic, with RR 40, small VTs. Tolerated CPAP this morning for about an hour before becoming tachypneic. CXR with basilar infiltrates. WBC high. On Cefepime. * SVT- likely related to dobutamine and resolved once dc'd. Would prefer DVT prophylactic heparin versus full dose for ? PAF. * Troponin likely related to hypotension and subendocardial ischemia. Appreciate cards help. * Hyponatremia: Probably excess FW in multiple drips and aggressive fluid resuscitation. Normalized with large-volume diuresis. * Chronic opiate dependancy. Remains on Fentanyl drip and wakes appropriately. * Nutrition: Started TFs. Moderately increased residuals Plan: Continue titrating FiO2 as tolerated. Try CPAP again today after lasix/albumin , check VBG on CPAP, may extubate even with tachypnea. Follow fluid balance closely. D/W hospitalist, RN, RT Critical care time 35 minutes 09/26/16 11:10 Subjective: Intubated, sedated. Objective: Vital Signs Temp Pulse Resp BP Pulse Ox 37.3 C 96 35 H 155/65 H 94 09/26/16 08:37 09/26/16 10:00 09/26/16 10:00 09/26/16 10:00 09/26/16 10:00 Laboratory Results 09/26/16 04:05 09/26/16 04:05 09/25/16 09/26/16 09/27/16 05:59 05:59 05:59 Intake Total 1677.8 1602 Output Total 2275 3290 Balance -597.2 -1688 PT 13.5 SEC (12.0-15.0) 09/18/16 22:25 INR 1.04 (0.83-1.16) 09/18/16 22:25 Physical Exam - Physical Exam General Appearance: mild distress, No alert EENT: normal ENT inspection Neck: normal inspection Respiratory: lungs clear, normal breath sounds Cardiac/Chest: regular rate, rhythm, No edema Abdomen: normal bowel sounds, non-tender Skin: normal color, warm/dry Extremities: normal inspection Neuro/Psych: alert, normal mood/affect, oriented x 3 ICD10 Worksheet Patient Problems: Problems Problem Status Diagnosed Acute bronchitis Acute Cardiogenic shock Acute Pneumonia Acute Chest pain Acute Chest wall pain Acute
[2016-09-26 11:16] LABS: PCO2 VENOUS 46 mmHg (40-44); PH VENOUS BLOOD 7.37 (7.31-7.42); PO2 VENOUS 48 mmHg (35-40); TCO2 VENOUS 27 mEq/L (23-27); VEN MEASURED OXYGEN SATURATION 79 % (65-75)
[2016-09-26 11:18] LABS: CPAP YES; PATIENT RATE 40; PRESSURE SUPPORT 7
[2016-09-26 11:19] LABS: END TIDAL CO2 30; O2 CONCENTRATIION 35 % (0-100)
--- NOTE | 2016-09-26 11:24 | DX ---
Portable Chest, Single View 11:08 a.m. Hours Indication: Respiratory failure. Comparison: Portable chest dated September 24, 2016 Findings: The ET tube, esophagogastric tube, and left subclavian line all remain well positioned. Den se left basilar consolidation, patchy right basilar consolidation, mild diffuse interstitial edema, s mall bilateral pleural effusions, worse left than right, have not significantly changed. No pneumotho rax. Impression: 1. Support devices remain in good position. 2. Edema and bibasilar consolidation (worse left than right) are unchanged - pneumonia versus atelect asis
--- NOTE | 2016-09-26 12:23 | HOSPPROG ---
Hospitalist Progress Note Assessment/Plan: #Septic shock: resolved. 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 Appreciate cards consultation -ASA, Plavix. BB, statin, Losartan when more clinically stable #PNA: -resp/blood cx NGTD #Leukocytosis: trending up to 23. Afebrile. On Cefepime. Resp/blood cx NGTD. #Anasarca: responding to IV Lasix #Hypothyroidism: restart when taking PO #Acute hypoxemic resp failure -due to PNA, volume overload. Trial extubation today #Chronic pain MS Contin 15 BID at home. Denies pain currently. Wean off Fentanyl as tolerated #SVT: currently HR 80s #Diet: TFs with residuals 200s this morning #DVT ppx: LMWH #Disp: warrants ICU admission for acute hypoxia, cath today Subjective: failed CPAP trial today; RR to 40s Objective: Vital Signs Temp Pulse Resp BP Pulse Ox 37.5 C 114 H 35 H 181/83 H 93 09/26/16 11:00 09/26/16 12:00 09/26/16 12:00 09/26/16 11:00 09/26/16 12:00 Laboratory Results 09/26/16 04:05 09/26/16 04:05 09/25/16 09/26/16 09/27/16 05:59 05:59 05:59 Intake Total 1677.8 1602 Output Total 2275 3290 350 Balance -597.2 -1688 -350 PT 13.5 SEC (12.0-15.0) 09/18/16 22:25 INR 1.04 (0.83-1.16) 09/18/16 22:25 - Physical Exam Constitutional: obese Eyes: PERRL Ears, Nose, Mouth, Throat: moist mucous membranes, other (ET tube in place) Cardiovascular: regular rate and rhythym Respiratory: no respiratory distress Gastrointestinal: normoactive bowel sounds, soft, non-tender abdomen Genitourinary: li in urethra Skin: warm Neurologic: other (sedated. Opened eyes this morning prior to increase in sedation) Psychiatric: interacting appropriately ICD10 Worksheet Patient Problems: Problems Problem Status Diagnosed Acute bronchitis Acute Cardiogenic shock Acute Pneumonia Acute Chest pain Acute Chest wall pain Acute
[2016-09-26 17:54] LABS: POTASSIUM 3.2 mEq/L (3.5-5.2)
[2016-09-26] MEDS: POTASSIUM Cl (KCl) 50 ML IV SCH ×2 (19:08→20:13)
[2016-09-26] MEDS: fentaNYL/NACL 100 ML IV SCH (19:11)
[2016-09-26] MEDS: ACETAMINOPHEN 650 MG SUPP PR PRN (20:24)
[2016-09-26] MEDS: MEROPENEM 1 GM in NS 100 ML IV SCH (22:18)
[2016-09-27 00:51] LABS: POTASSIUM 3.9 mEq/L (3.5-5.2)
[2016-09-27] MEDS ORDERED: POTASSIUM Cl (KCl) 50 ML IV ONE ×2 (00:56→13:45)
[2016-09-27 04:29] LABS: IONIZED CALCIUM 1.12 MMOL/L (1.12-1.30)
[2016-09-27 05:13] LABS: ALANINE AMINOTRANSFERASE 67 IU/L (21-72); ALBUMIN 3.5 g/dL (3.5-5.0); ALKALINE PHOSPHATASE 101 IU/L (38-126); ANION GAP 11 mEq/L (8-16); ASPARTATE AMINOTRANSFERASE 54 IU/L (17-59); BILIRUBIN,TOTAL 1.2 mg/dL (0.1-1.4); CALCIUM 8.4 mg/dL (8.5-10.4); CARBON DIOXIDE 27 mEq/l (22-31); CHLORIDE 104 mEq/L (97-110); CREATININE 0.8 mg/dL (0.7-1.3); GLOMERULAR FILTRATION RATE > 60; GLUCOSE 87 mg/dL (70-100); POTASSIUM 4.1 mEq/L (3.5-5.2); SODIUM 142 mEq/L (134-144); TOTAL PROTEIN 6.2 g/dL (6.3-8.2)
[2016-09-27 05:14] LABS: ABSOLUTE NRBC COUNT 0.02 10^3/uL (0-0.01); ADD DIFF? YES; ADD MORPH? NO; ATYPICAL LYMPHOCYTE FLAG 30 (0-99); FRAGMENT RBC FLAG 0 (0-99); HEMATOCRIT 27.7 % (40.0-51.0); HEMOGLOBIN 9.3 g/dL (13.7-17.5); LIPEMIA HEMOLYSIS FLAG 80 (0-99); MEAN CELL HEMOGLOBIN 32.9 pg (27.9-34.1); MEAN CELL HEMOGLOBIN CONCENTR. 33.6 g/dL (32.4-36.7); MEAN CELL VOLUME 97.9 fL (81.5-99.8); MEAN PLATELET VOLUME 10.5 fL (8.7-11.7); NRBC-AUTO% 0.1 % (0.0-0.2); PLATELET CLUMPS FLAG 0 (0-99); PLATELET COUNT 247 10^3/uL (150-400); RED BLOOD CELL COUNT 2.83 10^6/uL (4.40-6.38); RED CELL DISTRIBUTION WIDTH 13.1 % (11.5-15.2)
[2016-09-27 05:28] LABS: ADD SCAN? NO; LEFT SHIFT FLG 120 (0-99)
[2016-09-27 06:02] LABS: GIANT PLATELETS PRESENT; LARGE PLATELETS PRESENT; PLATELET ESTIMATE ADEQUATE (ADEQ); TOXIC GRANULATION PRESENT
[2016-09-27 06:05] LABS: POLYCHROMASIA 2+; SCHISTOCYTES 1+; STOMATOCYTES 1+
[2016-09-27 06:06] LABS: MICROCYTES 1+
[2016-09-27] MEDS: MEROPENEM 1 GM in NS 100 ML IV SCH ×3 (06:20→22:43)
[2016-09-27] MEDS: PROPOFOL/EMULSION 100 ML IV SCH ×2 (07:54→16:00)
--- NOTE | 2016-09-27 08:45 | DX ---
Chest, One View Portable at 0604 hours History: Pneumonia. Comparison: September 26, 2016 Findings: ET tube 4 cm above the tahira. Persistent left lower lobe retrocardiac opacity silhouettin g the left hemidiaphragm. Worsening alveolar opacity in the right lower lobe. Bilateral groundglass o pacities also in the upper lobes. Left internal jugular line in the superior vena cava. No pneumothor ax. Nasogastric tube in the stomach. Impression: 1. Left lower lobe pneumonia versus atelectasis. 2. Slight worsening right lower lobe pneumonitis with superimposed mild pulmonary venous hypertension . 3. ET tube above the tahira.
--- NOTE | 2016-09-27 09:50 | PDINTPN ---
Microfabrication Engineer Manager Progress Note Assessment/Plan: Assessment: 76 M with known CAD, schizophrenia admitted 09/18 with SOB and hypoxia requiring urgent intubation in ED, followed by hypotension. His BP was treated with levophed and dobutamine and he developed refractory SVT requiring cardioversion. His DDx including septic shock from PNA vs PE so he was treated with Abx and a UFH followed by transfer to ICU. He required multiple pressors to maintain an adequate BP so hydrocortisone added, followed by NICOM-assisted fluid challenges. Early PAP-plateau was >10 so emergent bronch performed without major obstruction (kinked ETT) and minimal but clearly white thickened secretions in LLL. * Septic shock likely 2/2 PNA +/- hypovolemia. PE ruled out by CTA and LE doppler US negative. Resolved. * Respiratory Failure: Tolerated CPAP this morning, but now tachypneic, with RR 40, small VTs. CXR with increased basilar infiltrates, ? aspiration, retained secretions. WBC high but falling. O2 needs up. On Cefepime. * SVT- likely related to dobutamine and resolved once dc'd. Would prefer DVT prophylactic heparin versus full dose for ? PAF. * Troponin likely related to hypotension and subendocardial ischemia. Appreciate cards help. * Chronic opiate dependancy. Remains on Fentanyl drip and wakes appropriately. * Nutrition: Started TFs, had vomiting last night, TFs now held. Plan: Hold TF. Reduce narcotics. Bronchoscopy. Follow fluid balance closely, ? further diuresis. D/W hospitalist, RN, RT 09/27/16 09:52 Subjective: Intubated, sedated. Objective: Vital Signs Temp Pulse Resp BP Pulse Ox 37.4 C 68 12 157/60 H 100 09/27/16 09:00 09/27/16 09:00 09/27/16 09:00 09/27/16 09:00 09/27/16 09:00 Laboratory Results 09/27/16 04:20 09/27/16 04:20 09/26/16 09/27/16 09/28/16 05:59 05:59 05:59 Intake Total 1602 1670 Output Total 3290 4550 Balance -1688 -2880 PT 13.5 SEC (12.0-15.0) 09/18/16 22:25 INR 1.04 (0.83-1.16) 09/18/16 22:25 CXR: Increased left base consolidation and right base pneumonitis. Images reviewed. Physical Exam - Physical Exam General Appearance: No alert EENT: normal ENT inspection, ET tube Neck: normal inspection Respiratory: decreased breath sounds (bases) Cardiac/Chest: regular rate, rhythm, No edema Abdomen: normal bowel sounds, non-tender, soft Skin: normal color, warm/dry Extremities: normal inspection Neuro/Psych: alert, normal mood/affect, oriented x 3 ICD10 Worksheet Patient Problems: Problems Problem Status Diagnosed Acute bronchitis Acute Cardiogenic shock Acute Pneumonia Acute Chest pain Acute Chest wall pain Acute
[2016-09-27] MEDS ORDERED: LIDOCAINE 2% JELLY 5 ML TUBE TP ONE (10:18)
[2016-09-27] MEDS ORDERED: LIDOCAINE 1% 30 ML SDV MISC ONE (10:18)
[2016-09-27] MEDS: ENOXAPARIN 40 MG/0.4 ML SYR SC SCH (10:25)
[2016-09-27] MEDS: FAMOTIDINE 20 MG/NACL 50 ML IV SCH ×2 (10:26→22:43)
[2016-09-27] MEDS: risperiDONE 2 MG TAB PO SCH ×2 (10:26→22:43)
[2016-09-27] MEDS: ASPIRIN 81 MG CHEWABLE TAB TUBE SCH (10:26)
[2016-09-27] MEDS: CLOPIDOGREL BISULFATE 75 MG TAB TUBE SCH (10:26)
[2016-09-27] MEDS ORDERED: CALCIUM GLUCONATE 50 ML IV ONE (11:56)
--- NOTE | 2016-09-27 12:36 | GPN ---
[f rep st] PROCEDURE NOTE DATE OF PROCEDURE: 09/27/2016 PROCEDURE: Flexible fiberoptic bronchoscopy. REASON FOR PROCEDURE: Respiratory failure with abnormal chest x-ray, possible retained secretions. PROCEDURE NOTE: The risks and benefits of the procedure were explained to the patient's POA, who agr eed to proceed. The entire procedure was performed in the patient's Intensive Care Unit room. It wa s my assessment that there was no risk of airborne infectious disease transmission from the procedure . The patient was under blood pressure, EKG, and oximetry monitoring throughout the procedure. 2 cc of 1% lidocaine was instilled into the patient's endotracheal tube. The bronchoscope was advanced t hrough the endotracheal tube into the main trachea. A scant amount of secretions were encountered in the distal trachea, and these were easily suctioned. I then proceeded directly to the right-sided a irways, where there was a small amount of mucopurulent secretions in the distal airways that were not occlusive. These were easily suctioned. Anatomy was normal and there were no endobronchial lesions . I then turned to the left-sided airways, where a small amount of mucopurulent secretions were occl uding one of the left lower lobe airways of the basal segment. These were easily suctioned. All air ways on the left side were inspected and were clear of secretions. The patient tolerated the procedu re well with good saturation throughout. No specimen was sent. There was no blood loss. No additio nal sedation beyond the patient's IV fentanyl and propofol drips was given during the procedure. /[id number]/MODL
[2016-09-27 13:08] LABS: POTASSIUM 3.8 mEq/L (3.5-5.2)
--- NOTE | 2016-09-27 15:13 | HOSPPROG ---
Hospitalist Progress Note Assessment/Plan: #Septic shock: resolved. Due to PNA. CTA/LE dopplers negative for thrombosis #Acute hypoxemic resp failure -due to PNA, volume overload? CXR worse on right today. Bronch today. 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 Appreciate cards consultation -ASA, Plavix. BB, statin, Losartan when more clinically stable #Pneumonia -appreciate ID input. Legionella, mycoplasma pending. Meropenem, add Azithro -resp/blood cx NGTD, negative influenza #Leukocytosis: afebrile. WBC trending down. C diff negative. Now on meropenem. Resp/blood cx NGTD. #Anasarca: responding to IV Lasix #Hypothyroidism: restart when taking PO #Diarrhea: C diff negative #Chronic pain MS Contin 15 BID at home. Denies pain currently. Wean off Fentanyl as tolerated #SVT: resolved. Due to dobutamine. #Diet: holding TFs, AXR WNL #DVT ppx: LMWH #Disp: warrants ICU admission for acute hypoxia, bronch, IV abx Subjective: tachypnea with CPAP trial Objective: Vital Signs Temp Pulse Resp BP Pulse Ox 37.2 C 70 31 H 146/55 H 93 09/27/16 15:00 09/27/16 15:00 09/27/16 15:00 09/27/16 15:00 09/27/16 15:00 Microbiology 09/26/16 20:00 - Final Sputum, Expectorated Laboratory Results 09/27/16 04:20 09/27/16 12:30 09/26/16 09/27/16 09/28/16 05:59 05:59 05:59 Intake Total 1602 1670 Output Total 3290 4550 Balance -1688 -2880 PT 13.5 SEC (12.0-15.0) 09/18/16 22:25 INR 1.04 (0.83-1.16) 09/18/16 22:25 - Physical Exam Constitutional: no apparent distress, obese Eyes: PERRL Ears, Nose, Mouth, Throat: other (ET tube in place) Cardiovascular: regular rate and rhythym, other (anasarca improved in UEs) Respiratory: no respiratory distress Gastrointestinal: other (hypoactive bowel sounds) Genitourinary: no bladder fullness Skin: warm Neurologic: other (sedated) ICD10 Worksheet Patient Problems: Problems Problem Status Diagnosed Acute bronchitis Acute Cardiogenic shock Acute Pneumonia Acute Chest pain Acute Chest wall pain Acute
[2016-09-27] MEDS ORDERED: FUROSEMIDE 20 MG/2 ML VIAL IVP ONE (15:47)
--- NOTE | 2016-09-27 17:01 | PCMIDPN ---
Assessment/Plan: Assessment: 76-year-old male with underlying schizophrenia who was admitted 9 days ago with septic shock and a left lower lobe pneumonia. Patient has been treated with cefepime intravenously times 8 days and switched yesterday to meropenem for coverage. Patient has been difficult to wean from the ventilator. He has had persistent leukocytosis throughout his stay. We are consulted to help assist in antibiotic management. Full dictated consult to follow. Plan: 1. Continue meropenem empirically. 2. Add azithromycin 500 mg IV daily. 3. Continue ICU ventilatory wean. 4. urine legionella antigen. Subjective: Patient remains on the ventilator. No significant hemodynamic instability is. FiO2 at 40%. Objective: Meropenem # 1 Vital Signs Temp Pulse Resp BP Pulse Ox 36.8 C 82 25 H 103/49 L 95 09/27/16 16:00 09/27/16 16:41 09/27/16 16:00 09/27/16 16:00 09/27/16 16:41 Microbiology 09/26/16 20:00 - Final Sputum, Expectorated Laboratory Results 09/27/16 04:20 09/27/16 12:30 09/26/16 09/27/16 09/28/16 05:59 05:59 05:59 Intake Total 1602 1670 Output Total 3290 4550 Balance -6538 -4340 - Physical Exam General Appearance: WD/WN, no apparent distress, other (Intubated and sedated), No alert Respiratory: lungs clear, No normal breath sounds (Decreased breath sounds left lower lobe) Cardiac/Chest: regular rate, rhythm, No tachycardia Skin: normal color, warm/dry, No rash ICD10 Worksheet Patient Problems: Problems Problem Status Diagnosed Acute bronchitis Acute Cardiogenic shock Acute Pneumonia Acute Chest pain Acute Chest wall pain Acute
[2016-09-27] MEDS: AZITHROMYCIN IV 500 MG in D5W 250 ML IV SCH (18:33)
[2016-09-28] MEDS: PROPOFOL/EMULSION 100 ML IV SCH (03:30)
[2016-09-28] MEDS: MEROPENEM 1 GM in NS 100 ML IV SCH ×3 (05:31→22:04)
[2016-09-28 05:49] LABS: IONIZED CALCIUM 1.13 MMOL/L (1.12-1.30)
[2016-09-28 05:59] LABS: MAGNESIUM 1.9 mg/dL (1.6-2.3); POTASSIUM 3.6 mEq/L (3.5-5.2)
[2016-09-28 06:19] LABS: BASE EXCESS 4.3 mEq/L (-2.5-2.5); BICARBONATE 28 mEq/L (22-26); MEASURED OXYGEN SATURATION 95 % (92-95); PCO2 37 mmHg (34-38); PO2 69 mmHg (65-75); TCO2 29 mEq/L (23-27)
[2016-09-28 06:25] LABS: CPAP YES; O2 CONCENTRATIION 40 % (0-100); P/F RATIO 173 RATIO
[2016-09-28 06:26] LABS: END TIDAL CO2 26; PATIENT RATE 29; PRESSURE SUPPORT 7
--- NOTE | 2016-09-28 07:59 | DX ---
Portable Chest, 613 a.m. History: Follow-up pneumonia Comparison: Yesterday Findings: Inspiratory phase is improved. There is persistent, but improving left basilar consolidatio n with a persistent left pleural effusion. Right lower lung zone infiltrate is also improving, as is a small right effusion. ET tube, NG tube and left subclavian catheter remain in place. There is no pn eumothorax. EKG leads again overlie the chest. Impression: Improvement
--- NOTE | 2016-09-28 09:49 | PDINTPN ---
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 His BP was treated with levophed and dobutamine and he developed refractory SVT requiring cardioversion. His DDx including septic shock from PNA vs PE so he was treated with Abx and a UFH followed by transfer to ICU. He required multiple pressors to maintain an adequate BP so hydrocortisone added, followed by NICOM-assisted fluid challenges. Early PAP-plateau was >10 so emergent bronch performed without major obstruction (kinked ETT) and minimal but clearly white thickened secretions in LLL. * Septic shock likely 2/2 PNA +/- hypovolemia. PE ruled out by CTA and LE doppler US negative. Resolved. * Respiratory Failure: Tolerated CPAP this morning, but now tachypneic, with RR 40, small VTs. CXR with increased basilar infiltrates, ? aspiration, retained secretions. WBC high but falling. O2 needs up. On Meropenam/Frances. * SVT- likely related to dobutamine and resolved once dc'd. Would prefer DVT prophylactic heparin versus full dose for ? PAF. * Troponin likely related to hypotension and subendocardial ischemia. Appreciate cards help. * Chronic opiate dependancy. Remains on Fentanyl drip and wakes appropriately. * Nutrition: Started TFs, had vomiting, now on trickle Plan: Continue TF, ? increase rate. Reduce narcotics. CPAP, possibly extubate today. D/W hospitalist, RN, RT 09/28/16 09:48 Subjective: Intubated, sedated. Objective: Vital Signs Temp Pulse Resp BP Pulse Ox 36.8 C 81 24 H 135/75 H 96 09/28/16 08:00 09/28/16 08:30 09/28/16 08:00 09/28/16 08:00 09/28/16 08:30 Microbiology 09/26/16 20:00 - Final Sputum, Expectorated Laboratory Results 09/27/16 04:20 09/28/16 05:30 09/27/16 09/28/16 09/29/16 05:59 05:59 05:59 Intake Total 1670 1524 Output Total 4550 1400 Balance -2880 124 PT 13.5 SEC (12.0-15.0) 09/18/16 22:25 INR 1.04 (0.83-1.16) 09/18/16 22:25 CXR: Improved basilar consolidation/effusion. Images reviewed. Physical Exam - Physical Exam General Appearance: alert, no apparent distress EENT: normal ENT inspection Neck: full range of motion Respiratory: lungs clear, normal breath sounds, No respiratory distress Cardiac/Chest: regular rate, rhythm, No edema Abdomen: normal bowel sounds, non-tender Skin: normal color, warm/dry Extremities: normal inspection Neuro/Psych: No alert, No normal mood/affect ICD10 Worksheet Patient Problems: Problems Problem Status Diagnosed Acute bronchitis Acute Cardiogenic shock Acute Pneumonia Acute Chest pain Acute Chest wall pain Acute
[2016-09-28] MEDS: AZITHROMYCIN IV 500 MG in D5W 250 ML IV SCH (10:12)
[2016-09-28] MEDS: risperiDONE 2 MG TAB PO SCH ×2 (10:12→22:46)
[2016-09-28] MEDS: ASPIRIN 81 MG CHEWABLE TAB TUBE SCH (10:12)
[2016-09-28] MEDS: FAMOTIDINE 20 MG/NACL 50 ML IV SCH ×2 (10:12→22:04)
[2016-09-28] MEDS: ENOXAPARIN 40 MG/0.4 ML SYR SC SCH (10:13)
[2016-09-28] MEDS: CLOPIDOGREL BISULFATE 75 MG TAB TUBE SCH (10:18)
[2016-09-28 10:49] LABS: HEMATOCRIT 29.4 % (40.0-51.0); HEMOGLOBIN 10.1 g/dL (13.7-17.5); MEAN CELL HEMOGLOBIN 33.6 pg (27.9-34.1); MEAN CELL HEMOGLOBIN CONCENTR. 34.4 g/dL (32.4-36.7); MEAN CELL VOLUME 97.7 fL (81.5-99.8); RED BLOOD CELL COUNT 3.01 10^6/uL (4.40-6.38); RED CELL DISTRIBUTION WIDTH 13.2 % (11.5-15.2)
[2016-09-28] MEDS ORDERED: fentaNYL/NACL 100 ML IV SCH (11:00)
[2016-09-28 11:01] LABS: ANION GAP 11 mEq/L (8-16); CALCIUM 8.5 mg/dL (8.5-10.4); CARBON DIOXIDE 29 mEq/l (22-31); CHLORIDE 103 mEq/L (97-110); CREATININE 0.7 mg/dL (0.7-1.3); GLOMERULAR FILTRATION RATE > 60; GLUCOSE 90 mg/dL (70-100); POTASSIUM 3.7 mEq/L (3.5-5.2); SODIUM 143 mEq/L (134-144)
--- NOTE | 2016-09-28 13:19 | HOSPPROG ---
Hospitalist Progress Note Assessment/Plan: #Septic shock: resolved. Due to PNA. CTA/LE dopplers negative for thrombosis #Acute hypoxemic resp failure -due to PNA, volume overload? CXR improved today. Broch 09/27 with some secretions. 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 Appreciate cards consultation -ASA, Plavix. BB, statin, Losartan when more clinically stable #Pneumonia -appreciate ID input. Legionella, mycoplasma negative. Cont Meropenem/Azithro -resp/blood cx NGTD, negative influenza #Leukocytosis: afebrile. WBC trending down. C diff negative. Resp/blood cx NGTD. #Anasarca: responding to IV Lasix #Hypothyroidism: restart when taking PO #Diarrhea: C diff negative #Chronic pain MS Contin 15 BID at home. Denies pain currently. Wean off Fentanyl as tolerated #SVT: resolved. Due to dobutamine. #Diet: holding TFs, AXR WNL #DVT ppx: LMWH #Disp: warrants ICU admission for acute hypoxia, bronch, IV abx Subjective: 200cc residuals with TFs still Objective: Vital Signs Temp Pulse Resp BP Pulse Ox 36.7 C 110 H 40 H 155/76 H 95 09/28/16 12:00 09/28/16 12:00 09/28/16 12:00 09/28/16 12:00 09/28/16 12:00 Microbiology 09/26/16 20:00 - Final Sputum, Expectorated Laboratory Results 09/28/16 10:40 09/28/16 10:40 09/27/16 09/28/16 09/29/16 05:59 05:59 05:59 Intake Total 1670 1524 Output Total 4550 1400 Balance -2880 124 PT 13.5 SEC (12.0-15.0) 09/18/16 22:25 INR 1.04 (0.83-1.16) 09/18/16 22:25 - Physical Exam Constitutional: no apparent distress Eyes: PERRL Ears, Nose, Mouth, Throat: moist mucous membranes Cardiovascular: regular rate and rhythym Respiratory: no respiratory distress Gastrointestinal: normoactive bowel sounds, other (quiet bowel sounds) Genitourinary: li in urethra Skin: warm Neurologic: other (sedated) Psychiatric: other (sedated) ICD10 Worksheet Patient Problems: Problems Problem Status Diagnosed Acute bronchitis Acute Cardiogenic shock Acute Pneumonia Acute Chest pain Acute Chest wall pain Acute
[2016-09-28] MEDS: POTASSIUM Cl (KCl) 50 ML IV SCH ×2 (13:38→13:39)
--- NOTE | 2016-09-28 15:53 | PCMIDPN ---
Assessment/Plan: Assessment: 76-year-old male with underlying schizophrenia who was admitted 9 days ago with septic shock and a left lower lobe pneumonia. Patient has been treated with cefepime intravenously times 8 days and switched yesterday to meropenem for coverage. The mycin added yesterday for atypicals. Mycoplasma IgM lab sent was negative. In the interim from yesterday to today the patient was extubated. 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 Will continue both the meropenem and azithromycin and follow his clinical course. Plan: 1. Continue meropenem and azithromycin empirically. 2. Follow clinical course. 09/28/16 15:50 Subjective: Patient extubated earlier today. No new events. Patient is responsive but very groggy. Power of tax associate attorney in room. No fevers. Still with purulent secretions. Objective: Meropenem # 2 Azithromycin # 1 Vital Signs Temp Pulse Resp BP Pulse Ox 37 C 97 32 H 181/139 H 97 09/28/16 14:00 09/28/16 14:00 09/28/16 14:00 09/28/16 14:00 09/28/16 14:00 Microbiology 09/26/16 20:00 - Final Sputum, Expectorated Laboratory Results 09/28/16 10:40 09/28/16 10:40 09/27/16 09/28/16 09/29/16 05:59 05:59 05:59 Intake Total 1670 1524 Output Total 4550 1400 Balance -2880 124 - Physical Exam General Appearance: WD/WN, alert, no apparent distress, non-toxic Respiratory: crackles, coarse breath sounds, No lungs clear, No normal breath sounds, No accessory muscle use Cardiac/Chest: regular rate, rhythm, No tachycardia Skin: normal color, warm/dry, No rash ICD10 Worksheet Patient Problems: Problems Problem Status Diagnosed Acute bronchitis Acute Cardiogenic shock Acute Pneumonia Acute Chest pain Acute Chest wall pain Acute
[2016-09-28] MEDS ORDERED: FUROSEMIDE 40 MG/4 ML VIAL IVP ONE (16:04)
[2016-09-29 00:56] LABS: POTASSIUM 3.8 mEq/L (3.5-5.2)
[2016-09-29] MEDS ORDERED: POTASSIUM Cl (KCl) 50 ML IV ONE ×2 (01:16→18:50)
[2016-09-29 04:42] LABS: HEMATOCRIT 30.5 % (40.0-51.0); HEMOGLOBIN 10.1 g/dL (13.7-17.5); MEAN CELL HEMOGLOBIN 32.8 pg (27.9-34.1); MEAN CELL HEMOGLOBIN CONCENTR. 33.1 g/dL (32.4-36.7); RED BLOOD CELL COUNT 3.08 10^6/uL (4.40-6.38); RED CELL DISTRIBUTION WIDTH 13.3 % (11.5-15.2)
[2016-09-29 04:53] LABS: ALBUMIN 3.1 g/dL (3.5-5.0); ANION GAP 12 mEq/L (8-16); CALCIUM 8.6 mg/dL (8.5-10.4); CARBON DIOXIDE 28 mEq/l (22-31); CHLORIDE 104 mEq/L (97-110); CREATININE 0.7 mg/dL (0.7-1.3); GLOMERULAR FILTRATION RATE > 60; GLUCOSE 88 mg/dL (70-100); MAGNESIUM 1.9 mg/dL (1.6-2.3); POTASSIUM 4.2 mEq/L (3.5-5.2); SODIUM 144 mEq/L (134-144)
[2016-09-29] MEDS: MEROPENEM 1 GM in NS 100 ML IV SCH ×3 (06:13→21:45)
[2016-09-29] MEDS: FAMOTIDINE 20 MG/NACL 50 ML IV SCH ×2 (08:57→19:57)
[2016-09-29] MEDS: ENOXAPARIN 40 MG/0.4 ML SYR SC SCH (08:57)
[2016-09-29] MEDS: AZITHROMYCIN IV 500 MG in D5W 250 ML IV SCH (08:57)
--- NOTE | 2016-09-29 09:08 | PDINTPN ---
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 His BP was treated with levophed and dobutamine and he developed refractory SVT requiring cardioversion. His DDx including septic shock from PNA vs PE so he was treated with Abx and a UFH followed by transfer to ICU. He required multiple pressors to maintain an adequate BP so hydrocortisone added, followed by NICOM-assisted fluid challenges. Early PAP-plateau was >10 so emergent bronch performed without major obstruction (kinked ETT) and minimal but clearly white thickened secretions in LLL. * Septic shock likely 2/2 PNA +/- hypovolemia. PE ruled out by CTA and LE doppler US negative. Resolved. * Respiratory Failure: Tolerated CPAP this morning, but now tachypneic, with RR 40, small VTs. CXR with increased basilar infiltrates, ? aspiration, retained secretions. WBC elevated but falling. O2 needs trending down. On Meropenam/Frances. Has been diuresed aggressively with no increase in BUN/Cr or decrease in BP, ? further diuresis. * SVT- likely related to dobutamine and resolved once dc'd. Would prefer DVT prophylactic heparin versus full dose for ? PAF. * Chronic opiate dependancy. Doing OK on low-dose Fentanyl drip. * Nutrition: Started TFs, had vomiting, now OG tube removed, no nutrition. Plan: Repeat CXR, check BNP, consider Lasix. Place SBFT if unable to swallow safely. Probably D/C TCL, place PICC if necessary. May d/c Demi. D/W hospitalist, RN, RT 09/29/16 09:14 Subjective: More alert, c/o pain "all over". No nausea Objective: Vital Signs Temp Pulse Resp BP Pulse Ox 37.4 C 100 35 H 160/61 H 90 L 09/29/16 08:00 09/29/16 08:00 09/29/16 08:00 09/29/16 08:00 09/29/16 08:00 Microbiology 09/26/16 20:00 - Final Sputum, Expectorated Laboratory Results 09/29/16 04:29 09/29/16 04:29 09/28/16 09/29/16 09/30/16 05:59 05:59 05:59 Intake Total 1524 1159 Output Total 1400 3200 Balance 124 -2041 PT 13.5 SEC (12.0-15.0) 09/18/16 22:25 INR 1.04 (0.83-1.16) 09/18/16 22:25 Physical Exam - Physical Exam General Appearance: alert, no apparent distress EENT: normal ENT inspection Neck: full range of motion, normal inspection Respiratory: crackles (bases) Cardiac/Chest: regular rate, rhythm, edema (trace) Abdomen: normal bowel sounds, non-tender, soft Skin: normal color, warm/dry Extremities: normal inspection Neuro/Psych: alert, normal mood/affect, oriented x 3 ICD10 Worksheet Patient Problems: Problems Problem Status Diagnosed Acute bronchitis Acute Cardiogenic shock Acute Pneumonia Acute Chest pain Acute Chest wall pain Acute
--- NOTE | 2016-09-29 09:49 | DX ---
Portable AP Upright Chest September 29, 2016 at 9:22 a.m. Clinical History: 76-year-old male in the ICU for follow-up of pneumonia. Comparison Study: Chest, dated September 28, 2016 at 6:13 a.m. Findings: In the interim, the esophagogastric tube and endotracheal tube have been removed. The left subclavian central venous catheter is stable position, terminating over the distal SVC. Telemetry mon itoring lead lines and oxygen tubing are present. The patient is slightly rotated the left. The cardi ac silhouette remains borderline enlarged and is partially silhouetted by left basilar pleuroparenchy mal consolidation. This has marginally improved. There is some mild infiltrate at the right lung base and the trace right costophrenic angle blunting has improved. There is no pneumothorax. The osseous structures are age-appropriate. Impression: Slight interval improvement from September 28, 2016 with interim extubation and removal of an esophagogastric tube.
[2016-09-29] MEDS: ASPIRIN 81 MG CHEWABLE TAB TUBE SCH (12:15)
[2016-09-29] MEDS: risperiDONE 2 MG TAB PO SCH ×2 (12:15→19:57)
[2016-09-29] MEDS: CLOPIDOGREL BISULFATE 75 MG TAB TUBE SCH (12:15)
[2016-09-29] MEDS ORDERED: FUROSEMIDE 40 MG/4 ML VIAL IVP ONE (13:26)
[2016-09-29] MEDS ORDERED: ALTEPLASE 2 MG VIAL IVP PRN (13:28)
--- NOTE | 2016-09-29 16:16 | PCMIDPN ---
Assessment/Plan: Assessment: Patient is clinically improved 1 day following extubation for pneumonia. He continues on meropenem along with azithromycin. Given his improvement and negative mycoplasma and Legionella testing will discontinue the azithromycin. Plan: 1. Continue meropenem. 2. Discontinue azithromycin. 3. Follow clinical course. 09/28/16 15:50 09/29/16 17:18 Subjective: Patient is resting in his hospital bed. Breathing comfortably. Underlying schizophrenia impairs interviewing. Putatively no complaints. Objective: Meropenem # 3 Azithromycin # 2 Vital Signs Temp Pulse Resp BP Pulse Ox 37.8 C 117 H 30 H 149/72 H 96 09/29/16 16:00 09/29/16 16:00 09/29/16 16:00 09/29/16 16:00 09/29/16 16:00 Microbiology 09/26/16 20:00 - Final Sputum, Expectorated Sputum Culture - Final Yeast, Not Luciana Albicans Laboratory Results 09/29/16 04:29 09/29/16 12:20 09/28/16 09/29/16 09/30/16 05:59 05:59 05:59 Intake Total 1524 1159 Output Total 1400 3200 Balance 124 -2041 - Physical Exam General Appearance: WD/WN, alert, no apparent distress Respiratory: lungs clear, normal breath sounds, No respiratory distress Cardiac/Chest: regular rate, rhythm, No tachycardia Skin: normal color, warm/dry, No rash Neuro/Psych: alert, No normal mood/affect ICD10 Worksheet Patient Problems: Problems Problem Status Diagnosed Acute bronchitis Acute Cardiogenic shock Acute Pneumonia Acute Chest pain Acute Chest wall pain Acute
--- NOTE | 2016-09-29 17:09 | DX ---
Portable upright AP chest September 29, 2016, 1649 hours History: Assess new peripherally inserted central catheter. Pneumonia, sepsis. Findings: Compare 0922 hours today and September 28, 2016. New peripherally inserted central catheter o f the left arm terminates at the junction of superior vena cava and right atrium. The previous left s ubclavian central catheter has been removed. Consolidation of left lower lobe is accompanied by left pleural effusion, similar to previous exams. Impression: Peripherally inserted central catheter of the left arm is ready to use. Results were telephoned to intensive care unit. IR call
[2016-09-29] MEDS ORDERED: AMIODARONE HCL 200 ML IV ONE (17:28)
[2016-09-29] MEDS ORDERED: AMIODARONE HCL 100 ML IV ONE (17:28)
[2016-09-29] MEDS ORDERED: DILTIAZEM 125 MG in D5W 125 ML IV SCH (18:00)
--- NOTE | 2016-09-29 18:25 | HOSPPROG ---
Hospitalist Progress Note Assessment/Plan: #Septic shock: resolved. Due to PNA. CTA/LE dopplers negative for thrombosis #Acute hypoxemic resp failure: due to PNA. Extubated 09/28. Broch 09/27 with some secretions. Negative flu #Pneumonia -Legionella, mycoplasma negative. 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 -ASA, Plavix. -restart BB, statin, Losartan when more clinically stable #Leukocytosis: afebrile. nearly resolved. C diff negative. Resp/blood cx NGTD. #Anasarca: responding to IV Lasix #Hypothyroidism: restart when taking PO #Diarrhea: C diff negative #Chronic pain -restart home MS Contin once weaned off Fentanyl #SVT: resolved. Due to dobutamine. #Diet: holding TFs, AXR WNL #DVT ppx: LMWH #Disp: warrants ICU admission for acute hypoxia, bronch, IV abx Subjective: extubated yesterday Objective: Vital Signs Temp Pulse Resp BP Pulse Ox 37.9 C 150 H 33 H 167/83 H 97 09/29/16 17:58 09/29/16 17:58 09/29/16 17:58 09/29/16 17:58 09/29/16 17:58 Microbiology 09/26/16 20:00 - Final Sputum, Expectorated Sputum Culture - Final Yeast, Not Luciana Albicans Laboratory Results 09/29/16 04:29 09/28/16 09/29/16 09/30/16 05:59 05:59 05:59 Intake Total 1524 1159 Output Total 1400 3200 Balance 124 -2041 PT 13.5 SEC (12.0-15.0) 09/18/16 22:25 INR 1.04 (0.83-1.16) 09/18/16 22:25 - Physical Exam Constitutional: no apparent distress, other (sitting up in chair) Eyes: PERRL Ears, Nose, Mouth, Throat: moist mucous membranes Cardiovascular: regular rate and rhythym Respiratory: rhonchi Gastrointestinal: normoactive bowel sounds, soft, non-tender abdomen Genitourinary: li in urethra Skin: warm Musculoskeletal: generalized weakness (alert to self and place, not time) Psychiatric: interacting appropriately ICD10 Worksheet Patient Problems: Problems Problem Status Diagnosed Acute bronchitis Acute Cardiogenic shock Acute Pneumonia Acute Chest pain Acute Chest wall pain Acute
[2016-09-29 18:33] LABS: POTASSIUM 3.7 mEq/L (3.5-5.2)
[2016-09-30] MEDS ORDERED: AMIODARONE HCL 540 MG in D5W 300 ML IV ONE
[2016-09-30 01:09] LABS: POTASSIUM 3.9 mEq/L (3.5-5.2)
[2016-09-30] MEDS ORDERED: POTASSIUM Cl (KCl) 50 ML IV ONE (02:00)
[2016-09-30 04:12] LABS: HEMATOCRIT 30.2 % (40.0-51.0); MEAN CELL HEMOGLOBIN 32.9 pg (27.9-34.1); MEAN CELL HEMOGLOBIN CONCENTR. 33.1 g/dL (32.4-36.7); MEAN CELL VOLUME 99.3 fL (81.5-99.8); RED BLOOD CELL COUNT 3.04 10^6/uL (4.40-6.38); RED CELL DISTRIBUTION WIDTH 13.3 % (11.5-15.2)
[2016-09-30 04:24] LABS: ALBUMIN 3.5 g/dL (3.5-5.0); ANION GAP 10 mEq/L (8-16); CALCIUM 8.5 mg/dL (8.5-10.4); CARBON DIOXIDE 29 mEq/l (22-31); CHLORIDE 102 mEq/L (97-110); CREATININE 0.8 mg/dL (0.7-1.3); GLOMERULAR FILTRATION RATE > 60; GLUCOSE 166 mg/dL (70-100); MAGNESIUM 2.2 mg/dL (1.6-2.3); POTASSIUM 4.3 mEq/L (3.5-5.2); SODIUM 141 mEq/L (134-144)
[2016-09-30] MEDS: MEROPENEM 1 GM in NS 100 ML IV SCH ×2 (06:08→16:35)
--- NOTE | 2016-09-30 09:33 | DX ---
AP Portable Chest September 30, 2016 Reason for examination: Hypoxia; comparison to the prior study September 29, 2016 at 1645 hours. Findings: The PICC from a left-sided approach is in stable position. Left basilar consolidation persi sts with an associated left pleural effusion. The right lung is clear. The heart size and pulmonary vascularity are normal allowing for portable technique. Mild peribronchi al thickening persists. Impression: 1. Persistent left lower lobe consolidation with associated pleural effusion. 2. Peribronchial thickening suggests an element of airways disease.
[2016-09-30] MEDS: ASPIRIN 81 MG CHEWABLE TAB TUBE SCH (10:06)
[2016-09-30] MEDS: risperiDONE 2 MG TAB PO SCH (10:06)
[2016-09-30] MEDS: CLOPIDOGREL BISULFATE 75 MG TAB TUBE SCH (10:06)
[2016-09-30] MEDS: FAMOTIDINE 20 MG/NACL 50 ML IV SCH (10:08)
[2016-09-30] MEDS: ENOXAPARIN 40 MG/0.4 ML SYR SC SCH (10:08)
[2016-09-30 11:01] LABS: BASE EXCESS -0.4 mEq/L (-2.5-2.5); BICARBONATE 30 mEq/L (22-26); MEASURED OXYGEN SATURATION 99 % (92-95); PO2 197 mmHg (65-75); TCO2 33 mEq/L (23-27)
--- NOTE | 2016-09-30 11:04 | PCMIDPN ---
Assessment/Plan: Assessment/Plan: * Healthcare associated pneumonia: Progressive respiratory distress now on BiPAP. White blood cell count has decreased after changed to meropenem. Continue meropenem. Await palliative care evaluation. 09/30/16 11:01 Subjective: More dyspneic requiring BiPAP this a.m.. Palliative care evaluation in process. Objective: Vital Signs Temp Pulse Resp BP Pulse Ox 37.2 C 100 33 H 145/54 H 90 L 09/30/16 10:00 09/30/16 10:00 09/30/16 10:00 09/30/16 10:00 09/30/16 10:00 Microbiology 09/26/16 20:00 - Final Sputum, Expectorated Sputum Culture - Final Yeast, Not Luciana Albicans Laboratory Results 09/30/16 03:50 09/30/16 03:50 09/29/16 09/30/16 10/01/16 05:59 05:59 05:59 Intake Total 1159 1370.4 Output Total 3200 2560 Balance -2041 -1189.6 Meropenem # 4 Chest x-ray with left lower lobe consolidation Urine Streptococcus pneumoniae and Legionella antigens negative - Physical Exam General Appearance: other (BiPAP in place) EENT: No scleral icterus Respiratory: respiratory distress (Increased respiratory effort present), crackles (Diffuse) Cardiac/Chest: tachycardia Abdomen: non-tender, No distended - Line/s LUE PICC Lines: No drainage, No erythema ICD10 Worksheet Patient Problems: Problems Problem Status Diagnosed Acute bronchitis Acute Cardiogenic shock Acute Pneumonia Acute Chest pain Acute Chest wall pain Acute
[2016-09-30 11:09] LABS: PCO2 90 mmHg (34-38)
[2016-09-30 11:10] LABS: EXP PRESSURE 5; INSP PRESSURE 14
[2016-09-30 11:11] LABS: BIPAP YES; I-TIME 0.6 SECS; O2 CONCENTRATIION 100 % (0-100); P/F RATIO 197 RATIO; PIP 14; PRESSURE SUPPORT 9
[2016-09-30 11:59] LABS: IONIZED CALCIUM 1.23 MMOL/L (1.12-1.30)
[2016-09-30] MEDS ORDERED: AMIODARONE HCL 200 ML IV ONE (15:30)
--- NOTE | 2016-09-30 16:13 | HOSPPROG ---
Hospitalist Progress Note Assessment/Plan: 76 yo M iwth hx of CAD, a fib, schizophrenia residing at [facility] presenting with septic shock and HCAP # septic shock: resolved, off of pressors and now hd stable. S/s pna as next # HCAP: with cxr personally reviewed and continued LLL infiltrate and associated pleural effusion noted. Continued on merrem, appreciate pulmonary/ID. # acute hypoxic respiratory failure: initially intubated, extubated on 09/28 but with now continued worsening respiratory status. On bipap now, he is now DNI # a fib: amio gtt, had SVT on dobutamine # chronic pain with continuous narcotic use and dependency: continue fentanyl IV for now, pain appears to be controlled # acute encephalopathy: likely delerium in setting of prolonged critical illness , patient is essentially unresponsive # cad: with hx of stents, continued on asa/plavix for now, other meds to be resumed when more stable # diarrhea: resolved, no e/o c diff # schizophrenia: continue op meds when able # dysphagia: suspect largely due to encephalopathy and decreased responsiveness but currently not safe to take PO # DNI # IP status, critically ill requiring ICU care, dc back to [facility] is plan if recovers from above Patient new to my care. Old records reviewed and summarized as above. Care plan reviewed with Dr. Verdin and multidisciplinary care team. Subjective: patient has had increasing respiratory distress today, now on bipap , less responsive, Objective: Vital Signs Temp Pulse Resp BP Pulse Ox 37.1 C 113 H 34 H 132/67 H 100 09/30/16 12:00 09/30/16 12:00 09/30/16 12:00 09/30/16 12:00 09/30/16 12:00 Microbiology 09/26/16 20:00 - Final Sputum, Expectorated Sputum Culture - Final Yeast, Not Luciana Albicans Laboratory Results 09/30/16 03:50 09/30/16 11:53 09/29/16 09/30/16 10/01/16 05:59 05:59 05:59 Intake Total 1159 1370.4 Output Total 3200 2560 Balance -2041 -1189.6 PT 13.5 SEC (12.0-15.0) 09/18/16 22:25 INR 1.04 (0.83-1.16) 09/18/16 22:25 somnolent, non responsive anicteric op clear, dry mm tachy, irreg, no mrg coarse upper airway bs soft nd nt no cce warm dry well perfused oriented appropriate ICD10 Worksheet Patient Problems: Problems Problem Status Diagnosed Acute bronchitis Acute Cardiogenic shock Acute Pneumonia Acute Chest pain Acute Chest wall pain Acute
--- NOTE | 2016-09-30 16:36 | PDPCPN ---
Palliative Care Progress Note Assessment/Plan: Referring provider: Dr Verdin Reason for consult: Complex medical decision making Symptom control HPI: Minor Foster (Bob) is a 76 yo male with PMH schizophrenia, bipolar, depression, HTN, and chronic pain admitted to the hospital from [facility] for increasing SOB. Found to be septic from PNA in origin. Intubated on arrival due to respiatory failure. Ext 2/4 with initial improvement but overnight declined and requiring bipap for resp support again. Palliative care consulted for complex medical decision making. Met with friend Ryan at the bedside this afternoon. He feels brian is suffering and would like to move to comfort care only. He states over the past few days he has had an opportunity to speak with Brian who has stated "I'm done" multiples times. He felt he was improving yesterday but understands he was not "out of the [place]" and now feels like he has taken a major step back. He states he feels like Brian gave up about 2 months ago when he stopped participating in his care at [facility] and became wheelchair bound. We discussed comfort measures and what it might be like. Ryan's focus is on not having Brian suffer. Assessment: Physical: - Pain: chronic pain - on chronic opiates at baseline- continue fentanyl drip - monitor for nonverbal s/s of pain - Dyspnea: - continue fentanyl drip at 50 mcg/hr and adjust as needed - fentanyl or morphine IV PRN - ativan IV PRN - oxygen as needed for comfort - constipation - monitor with opiate use - dulcolax supp daily PRN Emotional/psychological: Minimally responsive- ativan as above if needed for agitation or anxiety Advanced Care Planning: Is patient decisional?: no Code Status: DNR/DNI POA: friend Ryan is MDPOA Plan: Ryan would like to move to comfort care only. Would stop any life prolonging measures and just focus on medications for symptom management Subjective: unable to obtain, on bipap. Objective: Social History: No family. Friends with Ryan for 40 years. Medication list reviewed ROS: unable to obtain Functional assessment: PPS: 20% Functional status: dependent on ADLs, IADLs Vital Signs Temp Pulse Resp BP Pulse Ox 37.1 C 113 H 34 H 132/67 H 100 09/30/16 12:00 09/30/16 12:00 09/30/16 12:00 09/30/16 12:00 09/30/16 12:00 Microbiology 09/26/16 20:00 - Final Sputum, Expectorated Sputum Culture - Final Yeast, Not Luciana Albicans Laboratory Results 09/30/16 03:50 09/30/16 11:53 09/29/16 09/30/16 10/01/16 05:59 05:59 05:59 Intake Total 1159 1370.4 Output Total 3200 2560 Balance -2041 -1189.6 PT 13.5 SEC (12.0-15.0) 09/18/16 22:25 INR 1.04 (0.83-1.16) 09/18/16 22:25 Physical Exam - Physical Exam General Appearance: mild distress, other (opens eyes to voice) Respiratory: respiratory distress (mild), decreased breath sounds, No accessory muscle use Skin: normal color, warm/dry Extremities: pedal edema Neuro/Psych: disoriented to person, disoriented to place, disoriented to time, other (opens eyes to voice) ICD10 Worksheet Patient Problems: Problems Problem Status Diagnosed Acute bronchitis Acute Cardiogenic shock Acute Palliative care encounter Acute Pneumonia Acute Chest pain Acute Chest wall pain Acute - ICD10 Problem Qualifiers (1) Palliative care encounter
[2016-09-30] MEDS ORDERED: GLYCOPYRROLATE 0.2 MG/1 ML VIAL IVP PRN (16:53)
[2016-09-30] MEDS ORDERED: LORazepam 2 MG/ML INJ ONE (16:57)
--- NOTE | 2016-09-30 17:01 | PDINTPN ---
[employer] Developer Progress Note Assessment/Plan: Assessment: Pneumonia Acute respiratory failure Altered mental status, impart secondary to rising pCO2 Do not intubate Hx of schizophrenia The patient is had respiratory distress this morning. He was placed on BiPAP. He has been unresponsive throughout the day. Multiple visits including initially for respiratory failure during which time I bagged him, placed him on BiPAP, etc occurred throughout the day. The patient's medical power of employment law attorney came in. We discussed the patient's clinical status on several occasions. Multiple medical problems as outlined previously are present and in addition he has now respiratory failure requiring BiPAP or external ventilatory support. This is apparently not what the patient wanted. He is do not intubate. The patient's jnfui-ag-craquooj has indicated that he wants to go to comfort care only and allowed natural to progress. Because of this I contacted palliative care who was also spoken with the patient's power of employment law attorney. They agreed that comfort care would be reasonable. The patient was made do not resuscitate. All medications will be stopped except for morphine, Ativan, glycopyrrolate, oxygen at 2 L and saline at 50 mL miles per hour. Once we go to comfort care I expect that the patient will likely within several hours, however this cannot be determined at this time. All the above was discussed with the patient's zhgam-hb-eajnchze, nursing and respiratory therapy. Over 1 hour of critical care time was spent directly with the patient today, including at least 50% of that time in discussions regarding direction of care. Subjective: Unresponsive, on BiPAP Objective: Vital Signs Temp Pulse Resp BP Pulse Ox 37.1 C 111 H 34 H 132/67 H 100 09/30/16 12:00 09/30/16 16:00 09/30/16 12:00 09/30/16 12:00 09/30/16 12:00 Microbiology 09/26/16 20:00 - Final Sputum, Expectorated Sputum Culture - Final Yeast, Not Luciana Albicans Laboratory Results 09/30/16 03:50 09/30/16 11:53 09/29/16 09/30/16 10/01/16 05:59 05:59 05:59 Intake Total 1159 1370.4 Output Total 3200 2560 Balance -2041 -1189.6 PT 13.5 SEC (12.0-15.0) 09/18/16 22:25 INR 1.04 (0.83-1.16) 09/18/16 22:25 Laboratory Tests 09/30/16 10:55 pCO2 90 H* pO2 197 H ABG pH 7.15 L* O2 Concentration % 100 Expiratory Pressure 5 Peak Inspir Pressure 14 Mode BiPAP YES CXR: Left basilar atelectasis/infiltrate with small also sit pleural effusion looks somewhat better. Physical Exam - Physical Exam General Appearance: mild distress, obtunded, obese, No alert EENT: PERRL/EOMI, other (BiPAP in place) Neck: normal inspection (But relatively large neck) Respiratory: decreased breath sounds, rales (Bilaterally, more congestion on the right than the left), rhonchi Cardiac/Chest: tachycardia Abdomen: non-tender, soft, No normal bowel sounds (Decreased) Male Genitalia: other (Simms catheter in place, good urine output) Skin: warm/dry, pallor Extremities: pedal edema Neuro/Psych: no motor/sensory deficits (Hard to assess), cognition abnormalities (Of tended) ICD10 Worksheet Patient Problems: Problems Problem Status Diagnosed Acute bronchitis Acute Cardiogenic shock Acute Palliative care encounter Acute Pneumonia Acute Chest pain Acute Chest wall pain Acute
[2016-09-30] MEDS: LORazepam 2 MG/ML INJ IVP PRN ×2 (17:09→19:27)
[2016-09-30 19:41] VITALS: BP 57/35; PULSE 79; RESP 28; TEMP 99.1; O2SAT 34
--- NOTE | 2016-10-01 13:38 | IR ---
Ultrasound-Guided Peripherally Inserted Central Catheter History: Pneumonia, sepsis. Technique: Procedure was performed with the patient in the hospital bed. Following informed consent, the left arm was prepped and draped in sterile fashion. 1% Xylocaine was used for local anesthetic. All elements of maximal sterile barrier technique including cap, mask, sterile gown, sterile gloves, large sterile sheet, hand hygiene, and 2% chlorhexidine for cutaneous antisepsis followed. Ultrasoun d transducer was placed in sterile sleeve and used for real-time imaging guidance to enter the basili c vein. Sterile coupling gel was used. A 0.018 measuring wire was passed centrally and the internal jugular vein was assessed sonographically to exclude retrograde malposition . A skin brie with scal pel blade was followed by removing the access needle. A 5.5-Italian peel-away sheath was followed by a 5-Italian double-lumen central catheter, trimmed to 45 cm length. The length of catheter was estimate d from external measurements. The hub of the catheter was fixed to the skin using a sterile StatLock adhesive device, and a sterile dressing was applied. The catheter irrigated easily. A portable chest radiograph was requested and will be reported separately. Findings: No sonographic evidence of malposition in the internal jugular vein. Impression: Ultrasound-guided 5-Italian double-lumen peripherally inserted central catheter; radiograp hic confirmation is pending. - - - - - - - - - - - - - - - - - - - - - - - - - - - - - - - - - - - - - - - - - - - (Crosscutting measures: Current medications, including all known prescriptions, btti-rld-rmsgjfp med ications, herbal medications, and nutritional supplements are listed in the medical record. The tobias ent does not smoke. ) IR Call
--- NOTE | 2016-10-01 15:51 | PDDCSUM ---
Discharge Summary Discharge Summary: Dates of service 09/19-09/30/16 This is a summary Dx at time of : # septic shock # HCAP # acute hypoxic respiratory failure # a fib # anasarca # chronic medical issues: CAD, hypothyroid, chronic pain with continuous narcotic use and dependency, schizophrenia Hospital course by problem: # septic shock: resolved, off of pressors and now hd stable. S/s pna as next # HCAP: with cxr personally reviewed and continued LLL infiltrate and associated pleural effusion noted. Continued on merrem, appreciate pulmonary/ID. # acute hypoxic respiratory failure: initially intubated, extubated on 09/28 but with now continued worsening respiratory status. Decision made to pursue comfort care only # a fib: amio gtt, had SVT on dobutamine # chronic pain with continuous narcotic use and dependency: continue fentanyl IV for now, pain appears to be controlled # acute encephalopathy: likely delerium in setting of prolonged critical illness , patient is essentially unresponsive # cad: with hx of stents, continued on asa/plavix for now, other meds to be resumed when more stable # diarrhea: resolved, no e/o c diff # schizophrenia: continue op meds when able # dysphagia: related to AMS Patient shortly after changing to comfort measures.
== END 2016-09-30 20:10 | disposition expired | DRG 853 ==
LOC: EDUNIT# → F2N 09-19 03:04
PROVIDERS: ATTEND Hospitalist
PROC: 5A1955Z Respiratory Ventilation, Greater than 96 Consecutive Hours (ICD-10-PCS; 2016-09-18)
PROC: 0BH18EZ Insertion of Endotracheal Airway into Trachea, Via Natural or Artificial Opening Endoscopic (ICD-10-PCS; 2016-09-18)
PROC: 0B9B8ZZ Drainage of Left Lower Lobe Bronchus, Via Natural or Artificial Opening Endoscopic (ICD-10-PCS; 2016-09-19)
PROC: 0B918ZZ Drainage of Trachea, Via Natural or Artificial Opening Endoscopic (ICD-10-PCS; principal; 2016-09-27)
PROC: 0B938ZZ Drainage of Right Main Bronchus, Via Natural or Artificial Opening Endoscopic (ICD-10-PCS; principal; 2016-09-27)
PROC: 0B9B8ZZ Drainage of Left Lower Lobe Bronchus, Via Natural or Artificial Opening Endoscopic (ICD-10-PCS; principal; 2016-09-27)
PROC: 02HV33Z Insertion of Infusion Device into Superior Vena Cava, Percutaneous Approach (ICD-10-PCS; 2016-09-29)
DX: A41.9 Sepsis, unspecified organism (principal); J18.8 Other pneumonia, unspecified organism; J96.01 Acute respiratory failure with hypoxia; R65.21 Severe sepsis with septic shock; I47.1 Supraventricular tachycardia; E87.2 Acidosis; E87.1 Hypo-osmolality and hyponatremia; F11.20 Opioid dependence, uncomplicated; F20.9 Schizophrenia, unspecified; F31.9 Bipolar disorder, unspecified; F41.8 Other specified anxiety disorders; E03.9 Hypothyroidism, unspecified; I10 Essential (primary) hypertension; D64.9 Anemia, unspecified; G89.29 Other chronic pain; Z88.0 Allergy status to penicillin; Z87.891 Personal history of nicotine dependence; Z95.5 Presence of coronary angioplasty implant and graft; Z66 Do not resuscitate; Z51.5 Encounter for palliative care
CPT/HCPCS: 80307; 82947-QW; 85520-90; 86738-90; 87449-90; 92610-GN; 96374; 97110-GP; 97161-GP; C1751; G0480; G8978-GP-CL; G8979-GP-CJ; G8996-GN-CJ; G8997-GN-CI; J0171; J0282; J0456; J0610; J0692; J1250; J1644; J1650; J1815; J2185; J2250; J2405; J2704; J3010; J3370; J3475; P9047; Q9967